=== PATIENT | male | born 1930 | race Caucasian/White ===

== ENCOUNTER 2017-03-07 16:14 | Inpatient (IN) | payer MEDICARE ==
[~2017-03-07] VITALS: Ht 188 cm; Wt 87.2 kg
--- NOTE | 2017-03-07 17:18 | EKG ---
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
[2017-03-07] MEDS ORDERED: IV RINGERS SOLUTION,LACTATED 1,000 ML IV SCH (18:00)
--- NOTE | 2017-03-07 18:01 | ED.ADGEN ---
Past History Past Medical History: Anxiety, Arthritis, Dementia, Other Past Surgical History: Other Adult General Chief Complaint Chief Complaint "....There is nothing wrong with me... just can't hear...." HPI HPI Patient is a 86 year old male who presents with hx. of episode of severe Influ. B illness and pneumonia in this past Dec. Pt. was admitted [facility] for 6 days. Since that time he never return to his prior base line mentation. Pt. has grown more confused, agitated, "sun downing" type presentation, hallucination s that sister in the room, paranoid, severe insomnia, aggressive , and frequent falling. Pt. behavior is beyond control even with constant family at his side. Pt. follows with Dr Le. Review of Systems Review of Systems Pt. has no complaints Constitutional: Denies fever or chills [] Eyes: Denies change in visual acuity, redness, or eye pain [] HENT: Denies nasal congestion or sore throat [] Respiratory: Denies cough or shortness of breath [] Cardiovascular: No additional information not addressed in HPI [] GI: Denies abdominal pain, nausea, vomiting, bloody stools or diarrhea [] : Denies dysuria or hematuria [] Musculoskeletal: Denies back pain or joint pain [] Integument: Denies rash or skin lesions [] Neurologic: Denies headache, focal weakness or sensory changes [] Endocrine: Denies polyuria or polydipsia [] Family History Family History Noncontributory Current Medications Current Medications See nursing for home medications Current Medications Medications (Trade) Dose Ordered Sig/Major Start Time Stop Time Status Last Admin Dose Admin Albuterol/ Ipratropium 3 ml 3 ml RTQID 03/07/17 21:00 03/07/17 21:28 3 ML Azithromycin (Zithromax) 500 mg 1X ONCE 03/07/17 21:00 03/07/17 21:01 DC 03/07/17 20:51 500 MG Azithromycin 500 mg 500 mg 1X ONCE 03/07/17 20:30 03/07/17 20:31 Cancel Ceftriaxone Sodium/Sodium Chloride (Rocephin/Iv Sodium Chloride 0.9% 50ml) 50 ml @ 100 mls/hr 1X ONCE 03/07/17 21:00 03/07/17 23:12 DC Ceftriaxone Sodium (Rocephin) 1 gm STK-MED ONCE 03/07/17 20:55 03/07/17 20:56 DC Diphenhydramine HCl (Benadryl) 50 mg 1X ONCE 03/07/17 18:15 03/07/17 18:16 DC 03/07/17 18:14 50 MG Haloperidol Lactate (Haldol) 5 mg 1X ONCE 03/07/17 18:15 03/07/17 23:16 DC Iohexol (Omnipaque 300 Mg/ml) 75 ml 1X ONCE 03/07/17 19:15 03/07/17 19:16 DC 03/07/17 19:08 75 ML Lactated Ringer's (Iv Lactated Ringers) 1,000 ml @ 1,000 mls/hr Q1H 03/07/17 18:00 03/07/17 23:12 DC 03/07/17 18:12 1,000 MLS/HR Lorazepam (Ativan) 2 mg 1X ONCE 03/07/17 18:15 03/07/17 18:16 DC 03/07/17 18:19 2 MG Sodium Chloride (Iv Sodium Chloride 0.9% 50ml) 50 ml @ As Directed STK-MED ONCE 03/07/17 20:55 03/07/17 23:12 DC Allergies Allergies Allergies Coded Allergies Type Severity Reaction Last Updated Verified aspirin Allergy Unknown 03/07/17 Yes hydrocodone Allergy Unknown 03/07/17 Yes Physical Exam Physical Exam Constitutional: Moderate emotional distress, non-toxic appearance. [] HENT: Normocephalic, atraumatic, bilateral external ears normal, oropharynx moist, no oral exudates, nose normal. [] Eyes: PERRLA, EOMI, conjunctiva normal, no discharge. [] Neck: Normal range of motion, no tenderness, supple, no stridor. [] Cardiovascular: 80 cardia Heart rate regular rhythm, PMI to the left, no murmur [] Lungs & Thorax: Bilateral breath sounds equal at apexes but increased crackles and rhonchi right lower base on auscultation [] Abdomen: Bowel sounds normal, soft, no tenderness, no masses, no pulsatile masses. [] Skin: Warm, dry, no erythema, no rash. Poor turgor Back: No tenderness, no CVA tenderness. Old surgical scar Extremities: No tenderness, no cyanosis, no clubbing, ROM intact, no edema. Arthritic changes. Wide gait Neurologic: Alert and oriented X 2, no gross motor function deficits, no gross sensory function deficits, no gross, focal deficits noted. [] Psychologic: Affect anxious, judgement appears to be impaired and lack insight, mood depressed, agitated. Difficult to redirect Current Patient Data Vital Signs Vital Signs Date Time Temp Pulse Resp B/P Pulse Ox O2 Delivery O2 Flow Rate FiO2 03/07/17 19:52 71 16 163/93 97 03/07/17 18:22 Room Air 03/07/17 16:40 98.3 Lab Results Laboratory Tests Test 03/07/17 16:45 03/07/17 16:50 White Blood Count 4.3x10^3/uL (4.0-11.0) Red Blood Count 3.63x10^6/uL (4.30-5.70) L Hemoglobin 11.8g/dL (13.0-17.5) L Hematocrit 34.4% (39.0-53.0) L Mean Corpuscular Volume 95fL (79-100) Mean Corpuscular Hemoglobin 32pg (25-35) Mean Corpuscular Hemoglobin Concent 34g/dL (31-37) Red Cell Distribution Width 13.8% (11.5-14.5) Platelet Count 204x10^3/uL (140-400) Neutrophils (%) (Auto) 65% (31-73) Lymphocytes (%) (Auto) 21% (24-48) L Monocytes (%) (Auto) 10% (0-9) H Eosinophils (%) (Auto) 3% (0-3) Basophils (%) (Auto) 1% (0-3) Neutrophils # (Auto) 2.8x10^3uL (1.8-7.7) Lymphocytes # (Auto) 0.9x10^3/uL (1.0-4.8) L Monocytes # (Auto) 0.4x10^3/uL (0.0-1.1) Eosinophils # (Auto) 0.1x10^3/uL (0.0-0.7) Basophils # (Auto) 0.0x10^3/uL (0.0-0.2) Erythrocyte Sedimentation Rate 13 (0-15) Sodium Level 141mmol/L (136-145) Potassium Level 3.7mmol/L (3.5-5.1) Chloride Level 104mmol/L (98-107) Carbon Dioxide Level 29mmol/L (21-32) Anion Gap 8 (6-14) Blood Urea Nitrogen 19mg/dL (8-26) Creatinine 0.9mg/dL (0.7-1.3) Estimated GFR (Cockcroft-Gault) 80.0 Glucose Level 99mg/dL (70-99) Calcium Level 8.7mg/dL (8.5-10.1) Magnesium Level 2.1mg/dL (1.8-2.4) Troponin I Quantitative < 0.017ng/mL (0-0.055) TH-Ifz-[id number]-Type Natriuretic Peptide 296pg/mL (0-449) Urine Collection Type Unknown Urine Color Yellow Urine Clarity Clear Urine pH 5.0 Urine Specific [place] 1.015 Urine Protein Neg (NEG-TRACE) Urine Glucose (UA) Negmg/dL (NEG) Urine Ketones (Stick) Negmg/dL (NEG) Urine Blood Neg (NEG) Urine Nitrite Neg (NEG) Urine Bilirubin Neg (NEG) Urine Urobilinogen Dipstick 0.2mg/dL (0.2 mg/dL) Urine Leukocyte Esterase Neg (NEG) Urine RBC Occ/HPF (0-2) Urine WBC Occ/HPF (0-4) Urine Squamous Epithelial Cells Occ/LPF Urine Bacteria 0/HPF (0-FEW) Urine Opiates Screen Pos (NEG) Urine Methadone Screen Neg (NEG) Urine Barbiturates Neg (NEG) Urine Phencyclidine Screen Neg (NEG) Urine Amphetamine/Methamphetamine Neg (NEG) Urine Benzodiazepines Screen Neg (NEG) Urine Cocaine Screen Neg (NEG) Urine Cannabinoids Screen Neg (NEG) Urine Ethyl Alcohol Neg (NEG) EKG EKG My interpretation of EKG shows a sinus rhythm at 63. There are some nonspecific anterior lateral changes. No findings acute STEMI. With contralateral changes [] Radiology/Procedures Radiology/Procedures My interpretation of chest x-ray shows cardiomegaly. Review is somewhat rotated and gives the appearance of right sided cardiac hypertrophic changes. Does have bilateral atelectasis.. Some increased cephalization. There are areas of scattered infiltrate []. There is an area which appears to be a spinal stimulator. My interpretation of CT of head shows no shift, mass, edema, bleed, or fracture. Does have marked white matter atrophy. There does appear to be a right mauro infarct. This area appears to be nonacute. Review formal report when available. CT of chest shows no pulmonary embolism. Does have a lingular node. Does have findings cardiomegaly and interstitial lung markings consistent with CHF. My interpretation patient may be findings of a right basilar pneumonitis or pneumonia. Course & Med Decision Making Course & Med Decision Making Pertinent Labs and Imaging studies reviewed. (See chart for details). Discussed presentation, testing and treatment plan with . He will consult reference medical issues on this patient. Patient has been cleared for admission to [facility]. [] Final Impression Final Impression 1. Mental status change 2. Hallucinations 3. Anemia 4. Degenerative joint changes 5. Lung nodule 6. CHF 7. Right lower lobe infiltrate -Pneumonia vs pneumonitis 8. Insomnia 9. History of hypertension 10. History of dementia 11. Agitation [] Problems: Dragon Disclaimer Dragon Disclaimer This electronic medical record was generated, in whole or in part, using a voice recognition dictation system. MAYA PITTMAN MD Mar 07, 2017 18:01
[2017-03-07 18:04] LABS: BASO % 1 % (0-3); EOS # 0.1 x10^3/uL (0.0-0.7); EOS % 3 % (0-3); HEMATOCRIT 34.4 % (39.0-53.0); HEMOGLOBIN 11.8 g/dL (13.0-17.5); LYMPH # 0.9 x10^3/uL (1.0-4.8); LYMPH % 21 % (24-48); MEAN CORPUSCULAR HEMOGLOBIN 32 pg (25-35); MEAN CORPUSCULAR HGB CONC 34 g/dL (31-37); MEAN CORPUSCULAR VOLUME 95 fL (79-100); MONO # 0.4 x10^3/uL (0.0-1.1); MONO % 10 % (0-9); NEUT # 2.8 x10^3uL (1.8-7.7); NEUT % 65 % (31-73); PLATELET COUNT 204 x10^3/uL (140-400); RED BLOOD COUNT 3.63 x10^6/uL (4.30-5.70); RED CELL DISTRIBUTION WIDTH 13.8 % (11.5-14.5); WHITE BLOOD COUNT 4.3 x10^3/uL (4.0-11.0)
[2017-03-07] MEDS ORDERED: LORazepam 2 MG/ML VIAL IV ONE (18:15)
[2017-03-07] MEDS ORDERED: HALOPERIDOL LACT 5 MG/ML VIAL. IVP ONE (18:15)
[2017-03-07] MEDS ORDERED: diphenhydrAMINE 50 MG/ML VIAL IVP ONE (18:15)
[2017-03-07 18:19] LABS: AMPHETAMINE/METHAMPHETAMINE NEG (NEG); BARBITURATES NEG (NEG); BENZODIAZEPINES NEG (NEG); CANNABINOIDS NEG (NEG); COCAINE NEG (NEG); METHADONE NEG (NEG); OPIATES POS (NEG); PHENCYCLIDINE NEG (NEG)
[2017-03-07 18:21] LABS: CALCIUM 8.7 mg/dL (8.5-10.1); CREATININE 0.9 mg/dL (0.7-1.3); MAGNESIUM 2.1 mg/dL (1.8-2.4); POTASSIUM 3.7 mmol/L (3.5-5.1)
[2017-03-07 18:31] LABS: BILIRUBIN,URINE NEG (NEG); CLARITY,URINE CLEAR; COLOR,URINE YELLOW; GLUCOSE,URINE NEG (NEG); NITRITE,URINE NEG (NEG); UROBILINOGEN,URINE 0.2 mg/dL (0.2 mg/dL)
[2017-03-07 18:32] LABS: BACTERIA,URINE 0 /HPF (0-FEW); RBC,URINE OCC /HPF (0-2); SQUAMOUS EPITHELIAL CELL,UR OCC /LPF; WBC,URINE OCC /HPF (0-4)
--- NOTE | 2017-03-07 19:08 | RAD ---
Examination: CT head without contrast History : Altered mental status, confusion, agitation COMPARISON None available. TECHNIQUE Axial images the head without contrast. Findings: There is no evidence of midline shift. Moderate bilateral periventricular white matter hypodensities likely chronic small vessel ischemic disease. Moderate prominent appearing bilateral periventricular white matter hypodensities likely chronic small vessel ischemic disease. There is no acute intracranial bleed or extra-axial fluid collection identified. Small old lacunar infarct identified in the right basal ganglia. The visualized right maxillary sinus demonstrate small mucous retention cyst or polyp. The visualized mastoid air cells are clear. Impression: No acute intracranial findings. Electronically signed by: Miguel Flower (Mar 07, 2017 19:06:52)
[2017-03-07] MEDS ORDERED: IOHEXOL 300 MG/ML 75 ML VIAL. IV ONE (19:15)
[2017-03-07 19:18] LABS: SEDIMENTATION RATE 13 (0-15)
--- NOTE | 2017-03-07 20:03 | RAD ---
Examination: CT chest with IV contrast. HISTORY History of chest pain, weakness. COMPARISON None available. TECHNIQUE Axial CT angiographic images AICAs were performed with IV contrast. Coronal and sagittal 3D MIPS reformats were performed. Exposure: One or more of the following dose reduction technique were utilized for this examination: 1. Automated exposure control. 2.Adjustment of MA and /or KV according to patient size. 3. Use of iterative reconstruction technique. Findings: The central airways are patent. Mild cardiomegaly identified. Coronary artery calcifications identified. There is no evidence of filling defect identified in the main pulmonary arterial trunk and right and left main pulmonary arteries and the visualized lobar, segmental branches. Mild patchy bibasilar lung airspace opacity likely atelectasis or infiltrates. 4 millimeter nodule identified in the left lingula. The visualized liver demonstrates subcentimeter hypodensity in the left lobe the liver Moderate degenerative changes thoracic spine. Spinal stimulator leads identified in the mid thoracic vertebral level. 1.1 centimeters cyst structure identified in the right kidney probably a cyst or cystic lesion. 1 centimeter hyperdensity probably hyperdense cyst identified in the left kidney. IMPRESSION 1. No evidence of pulmonary embolism. 2. Patchy bibasilar lung airspace opacities likely atelectasis or infiltrates. 4 millimeter nodule identified in the left lingula of the lung. 3. Mild cardiomegaly with mild prominent appearing bilateral interstitial lung markings likely mild congestive changes. 4. 1.1 centimeters cyst structure identified in the right kidney probably a cyst or cystic lesion. 1 centimeter hyperdensity identified in the left kidney likely a hyperdense cyst. Followup nonemergent ultrasound is recommended. Electronically signed by: Miguel Flower (Mar 07, 2017 20:02:13)
[2017-03-07] MEDS ORDERED: AZITHROMYCIN 250 MG TABLET. PO ONE ×2 (20:30→21:00)
[2017-03-07] MEDS ORDERED: cefTRIAXone SODIUM 1 GM VIAL IV ONE (20:55)
[2017-03-07] MEDS ORDERED: IV NORMAL SALINE 50ML 50 ML ONE (20:55)
[2017-03-07] MEDS: cefTRIAXone IM 1 GM VIAL IM SCH (20:58)
[2017-03-07] MEDS: IPRATRPIUM/ALBUTEROL 0.5/2.5MG 3 ML NEBU. NEB SCH (21:28)
--- NOTE | 2017-03-07 21:30 | NUR ---
Admission Note: Pt arrived via stretcher and accompanied by [employer] and EMS staff. Patient without signs and symptoms of distress. Dx: Dementia with Behavioral Disturbances. Vital signs obtained, WNL, noted and documented within the EMR. Assessment as follows: Patient drowsy, PERRLA, patient would awaken intermittently to verbal and tactile stimuli. ORUTSARARMIUT. Mucous membranes moist. S1 S2 regular, LCTA, but diminished to RLL. SPO2 97% on RA following breathing treatment. HOB up to comfort. Resp. shallow, but unlabored. 1+ pedal pulses; 2+ non-pitting edema to bilat LE; blanchable redness and warmth to lower legs; no weeping or s/s DVT, but cellulitis cannot be ruled out. Partial thickness, clean abrasions noted to right 1st and 2nd toe. Bandaid applied to protect and wound care consult per protocol. Skin otherwise intact; fragile. Bowel sounds active all quads and abdomen soft, round, non-tender. No s/s of significant pain as patient remained calm, cooperative, and relaxed during assessment. Patient oriented to self only, disoriented, confused, but non-combative. Patient stated, "Where am I? What did I do? Don't let them come get me and hurt me! Please help me" Patient reassured that he did nothing wrong and attempted redirection toward person, place, time, and situation. Family at bedside to say terell to patient and further redirect patient. Patient receptive and stated, "Ok. Don't you think you should be headed home now?" Patient then went back to sleep. Reinforced [facility] rules and instructions with family prior to their departure (e.g. visitation, phone calls, etc.). Family verbalized understanding. Will follow.
[2017-03-07 21:58] VITALS: BP 179/88
--- NOTE | 2017-03-07 23:41 | PDOC ---
Exam Earle Demential Exam: Earle Note: Please also refer to the separate dictated note~for this date of service dictated separately.~Patient seen individually. Discussed the patient with Nursing staff reviewed the chart.~Reviewed interim history and current functioning. Reviewed vital signs,~Labs/ Radiology~and current medications noted below. Continue current treatment with the changes noted in the dictated addendum note Assessment: Vital Signs: Vital Signs Date Time Temp Pulse Resp B/P Pulse Ox O2 Delivery O2 Flow Rate FiO2 03/07/17 21:58 96.9 61 18 179/88 97 Room Air Labs: Laboratory Tests Test 03/07/17 16:45 03/07/17 16:50 White Blood Count 4.3x10^3/uL (4.0-11.0) Red Blood Count 3.63x10^6/uL (4.30-5.70) L Hemoglobin 11.8g/dL (13.0-17.5) L Hematocrit 34.4% (39.0-53.0) L Mean Corpuscular Volume 95fL (79-100) Mean Corpuscular Hemoglobin 32pg (25-35) Mean Corpuscular Hemoglobin Concent 34g/dL (31-37) Red Cell Distribution Width 13.8% (11.5-14.5) Platelet Count 204x10^3/uL (140-400) Neutrophils (%) (Auto) 65% (31-73) Lymphocytes (%) (Auto) 21% (24-48) L Monocytes (%) (Auto) 10% (0-9) H Eosinophils (%) (Auto) 3% (0-3) Basophils (%) (Auto) 1% (0-3) Neutrophils # (Auto) 2.8x10^3uL (1.8-7.7) Lymphocytes # (Auto) 0.9x10^3/uL (1.0-4.8) L Monocytes # (Auto) 0.4x10^3/uL (0.0-1.1) Eosinophils # (Auto) 0.1x10^3/uL (0.0-0.7) Basophils # (Auto) 0.0x10^3/uL (0.0-0.2) Erythrocyte Sedimentation Rate 13 (0-15) Sodium Level 141mmol/L (136-145) Potassium Level 3.7mmol/L (3.5-5.1) Chloride Level 104mmol/L (98-107) Carbon Dioxide Level 29mmol/L (21-32) Anion Gap 8 (6-14) Blood Urea Nitrogen 19mg/dL (8-26) Creatinine 0.9mg/dL (0.7-1.3) Estimated GFR (Cockcroft-Gault) 80.0 Glucose Level 99mg/dL (70-99) Calcium Level 8.7mg/dL (8.5-10.1) Magnesium Level 2.1mg/dL (1.8-2.4) Troponin I Quantitative < 0.017ng/mL (0-0.055) MF-Owr-[id number]-Type Natriuretic Peptide 296pg/mL (0-449) Urine Collection Type Unknown Urine Color Yellow Urine Clarity Clear Urine pH 5.0 Urine Specific [place] 1.015 Urine Protein Neg (NEG-TRACE) Urine Glucose (UA) Negmg/dL (NEG) Urine Ketones (Stick) Negmg/dL (NEG) Urine Blood Neg (NEG) Urine Nitrite Neg (NEG) Urine Bilirubin Neg (NEG) Urine Urobilinogen Dipstick 0.2mg/dL (0.2 mg/dL) Urine Leukocyte Esterase Neg (NEG) Urine RBC Occ/HPF (0-2) Urine WBC Occ/HPF (0-4) Urine Squamous Epithelial Cells Occ/LPF Urine Bacteria 0/HPF (0-FEW) Urine Opiates Screen Pos (NEG) Urine Methadone Screen Neg (NEG) Urine Barbiturates Neg (NEG) Urine Phencyclidine Screen Neg (NEG) Urine Amphetamine/Methamphetamine Neg (NEG) Urine Benzodiazepines Screen Neg (NEG) Urine Cocaine Screen Neg (NEG) Urine Cannabinoids Screen Neg (NEG) Urine Ethyl Alcohol Neg (NEG) Current Medications: Meds: Current Medications Lactated Ringer's (Iv Lactated Ringers) 1,000 ml @ 1,000 mls/hr Q1H IV Last administered on 03/07/17 18:12; Start 03/07/17 at 18:00; Stop 03/07/17 at 23:12 ; Status DC Diphenhydramine HCl (Benadryl) 50 mg 1X ONCE IVP Last administered on 18:14; Start 03/07/17 at 18:15; Stop 03/07/17 at 18:16; Status DC Lorazepam (Ativan) 2 mg 1X ONCE IV Last administered on 03/07/17 18:19; Start 03/07/17 at 18:15; Stop 03/07/17 at 18:16; Status DC Haloperidol Lactate (Haldol) 5 mg 1X ONCE IVP ; Start 03/07/17 at 18:15; Stop 03/07/17 at 23:16; Status DC Iohexol 75 ml 75 ml 1X ONCE IV Last administered on 03/07/17 19:08; Start at 19:15; Stop 03/07/17 at 19:16; Status DC Ceftriaxone Sodium/Sodium Chloride (Rocephin/Iv Sodium Chloride 0.9% 50ml) 50 ml @ 100 mls/hr 1X ONCE IV ; Start 03/07/17 at 20:30; Stop 03/07/17 at 20:59; Status Cancel Azithromycin 500 mg 500 mg 1X ONCE PO ; Start 03/07/17 at 20:30; Stop 03/07/17 at 20:31; Status Cancel Ceftriaxone Sodium/Sodium Chloride (Rocephin/Iv Sodium Chloride 0.9% 50ml) 50 ml @ 100 mls/hr 1X ONCE IV ; Start 03/07/17 at 21:00; Stop 03/07/17 at 23:12; Status DC Azithromycin (Zithromax) 500 mg 1X ONCE PO Last administered on 03/07/17 20: 51; Start 03/07/17 at 21:00; Stop 03/07/17 at 21:01; Status DC Azithromycin (Zithromax) 250 mg DAILY06 PO ; Start 03/08/17 at 06:00 Ceftriaxone Sodium (Rocephin Im) 1 gm DAILY IM Last administered on 03/07/17 20:58; Start 03/08/17 at 09:00 Albuterol/ Ipratropium 3 ml 3 ml RTQID NEB Last administered on 03/07/17 21:28 ; Start 03/07/17 at 21:00 Sodium Chloride (Iv Sodium Chloride 0.9% 50ml) 50 ml @ As Directed STK-MED ONCE .ROUTE ; Start 03/07/17 at 20:55; Stop 03/07/17 at 23:12; Status DC Ceftriaxone Sodium (Rocephin) 1 gm STK-MED ONCE IV ; Start 03/07/17 at 20:55; Stop 03/07/17 at 20:56; Status DC RASHMI NEGRON MD Mar 07, 2017 23:41
[2017-03-08] MEDS ORDERED: ACET-704 PO
[2017-03-08] MEDS ORDERED: BIOF1TAB7 PO
[2017-03-08] MEDS ORDERED: HYDR25TA9 PO
[2017-03-08] MEDS ORDERED: QUET25TA PO
[2017-03-08] MEDS ORDERED: ESCI10TA PO
[2017-03-08] MEDS ORDERED: POTA20TA82 PO
[2017-03-08] MEDS ORDERED: RISP0.2519 PO
[2017-03-08] MEDS ORDERED: POLY17PO3 PO
[2017-03-08] MEDS ORDERED: TAMS0.4C2 PO
[2017-03-08] MEDS ORDERED: DONE5TAB7 PO
[2017-03-08] MEDS ORDERED: VIT1CAPS12 PO
[2017-03-08] MEDS ORDERED: CYAN50008 PO (00:01)
[2017-03-08] MEDS ORDERED: CHOL20002 PO (00:01)
[2017-03-08] MEDS ORDERED: LORA10TA68 PO (00:01)
[2017-03-08] MEDS ORDERED: GLUC1CAP3 PO (00:01)
--- NOTE | 2017-03-08 03:00 | NUR ---
Behavior Intervention Response and Plan: BIRP Note: Behavior: Assumed Care of patient, patient located in Patient Room at shift change. Patient exhibited the following behavior Restless, Cooperative, Delusions, Insomnia, Fearful. Brief assessment on rounds of vital signs, medication needs, lab studies, and pain. Treatment plan problems 1-2. Intervention: Patient assessed and the following interventions initiated safety checks 15 Minute Checks Cognitive Assessment , Oral Hydration , ADL's, linen change, and hussein care, redirection. Response: After interactions and interventions patient responded in the following manner, Calm , confused ,Disorganized. Continue to assess behaviors and condition will continue to monitor throughout the shift as needed. Plan: Continue to monitor Master Treatment Plan for patient's progress toward short term goals of Decreased Anxiety, Decreased Agitation, Medication Compliance, Improved Mood long-term goals to return to previous living setting vs placement. Continue to assess patient for changes in above assessment. Monitor for medication needs, pain, and safety concerns. Hourly rounding performed to ensure safe environment.
[2017-03-08 06:10] VITALS: BP 171/80
[2017-03-08] MEDS: AZITHROMYCIN 250 MG TABLET. PO SCH (06:13)
[2017-03-08] MEDS: IPRATRPIUM/ALBUTEROL 0.5/2.5MG 3 ML NEBU. NEB SCH ×4 (06:52→20:00)
[2017-03-08] MEDS ORDERED: POTASSIUM CHLORIDE 10 MEQ TABLET.ER. PO SCH (08:00)
--- NOTE | 2017-03-08 08:28 | RAD ---
Exam: AP portable chest. History: Recent falls, altered mental status, shortness of air. Comparison: None. Findings: Cardiac silhouette appears within normal limits for size. Aortic atherosclerosis is seen. Spinal stimulator is present. Patchy bilateral parenchymal densities are seen. No pneumothorax or pleural effusion is identified. Gas under the diaphragm is favored to be localized bowel. Impression: 1. Patchy bilateral parenchymal densities. Findings could represent atelectasis versus developing airspace disease
[2017-03-08] MEDS ORDERED: ACETAMINOPHEN/CODEINE 300/30MG TABLET PO PRN (08:45)
[2017-03-08] MEDS ORDERED: CYANOCOBALAMIN (VITAMIN B-12) 1,000 MCG TABLET. PO SCH (09:00)
[2017-03-08] MEDS ORDERED: [UNRECOGNIZED DRUG - OTHER] PO SCH (09:00)
[2017-03-08] MEDS ORDERED: CHOLECALCIFEROL (VITAMIN D3) 1,000 UNIT TABLET PO SCH (09:00)
[2017-03-08] MEDS ORDERED: CETIRIZINE HCL 10 MG TABLET PO SCH (09:00)
--- NOTE | 2017-03-08 10:00 | NUR ---
THERAPEUTIC RECREATION GROUP NOTE TITLE :Butterflies and Wine Sales Representative Art ACTIVITY : Arts and Crafts GOAL : Increase socialization, fine motor skills, creativity DURATION : 30 minutes RESPONSE : No participation. Pt. was wandering
--- NOTE | 2017-03-08 10:13 | NUR ---
Case Management Note Left a message for Marla at the [place] [phone] #[id number] regarding [facility] facilities for discharge planning. Family was given a list of facilities that are Service connected. We requested the same list.
[2017-03-08] MEDS: POLYETHYLENE GLYCOL 3350 17 GM PACKET. PO SCH (10:22)
[2017-03-08] MEDS: risperiDONE 0.25 MG TABLET. PO SCH ×2 (10:22→21:13)
[2017-03-08] MEDS: ESCITALOPRAM 10 MG TABLET. PO SCH (10:22)
[2017-03-08] MEDS: hydroCHLOROthiazide 25 MG TABLET PO SCH (10:22)
[2017-03-08] MEDS: GLUCOSAMINE/CHOND 500/400MG CAPSULE PO SCH ×2 (10:22→21:08)
[2017-03-08] MEDS: MULTIVITAMIN PRESERVISION CAPSULE. PO SCH ×2 (10:23→21:09)
[2017-03-08 10:25] LABS: BASO % 0 % (0-3); EOS % 0 % (0-3); HEMATOCRIT 39.4 % (39.0-53.0); HEMOGLOBIN 13.6 g/dL (13.0-17.5); LYMPH # 0.7 x10^3/uL (1.0-4.8); LYMPH % 10 % (24-48); MEAN CORPUSCULAR HEMOGLOBIN 32 pg (25-35); MEAN CORPUSCULAR HGB CONC 34 g/dL (31-37); MEAN CORPUSCULAR VOLUME 94 fL (79-100); MONO # 0.5 x10^3/uL (0.0-1.1); MONO % 7 % (0-9); NEUT % 83 % (31-73); PLATELET COUNT 253 x10^3/uL (140-400); RED BLOOD COUNT 4.18 x10^6/uL (4.30-5.70); RED CELL DISTRIBUTION WIDTH 14.2 % (11.5-14.5); WHITE BLOOD COUNT 7.3 x10^3/uL (4.0-11.0)
[2017-03-08 10:38] LABS: ALBUMIN/GLOBULIN RATIO 1.1 (1.0-1.7); CALCIUM 9.5 mg/dL (8.5-10.1); GFR 70.8; POTASSIUM 3.3 mmol/L (3.5-5.1); TOTAL BILIRUBIN 0.8 mg/dL (0.2-1.0); TOTAL PROTEIN 7.6 g/dL (6.4-8.2)
--- NOTE | 2017-03-08 11:15 | NUR ---
THERAPEUTIC RECREATION GROUP NOTE TITLE :Movement to Music: Flexibility ACTIVITY : Movement/ Exercise GOAL : Increase morale, attention, flexibility. Decrease stress/anxiety. DURATION : 40 Minutes RESPONSE : No participation.
--- NOTE | 2017-03-08 11:21 | NUR ---
Behavior Intervention Response and Plan: BIRP Note: Behavior: Assumed Care of patient, patient located in Hallway at shift change. Patient exhibited the following behavior Wandering, Exit Seeking, Disorganized. Brief assessment on rounds of vital signs, medication needs, lab studies, and pain. Treatment plan problems . Intervention: Patient assessed and the following interventions initiated safety checks 15 Minute Checks Cognitive Assessment , Head to toe Assessment , Medications. Response: After interactions and interventions patient responded in the following manner, Wandering , Disorganized ,Cooperative. Continue to assess behaviors and condition will continue to monitor throughout the shift as needed. Plan: Continue to monitor Master Treatment Plan for patient's progress toward short term goals of Decreased Anxiety, Decreased Agitation, nursing home goals to return to previous living setting vs placement. Continue to assess patient for changes in above assessment. Monitor for medication needs, pain, and safety concerns. Hourly rounding performed to ensure safe environment.
--- NOTE | 2017-03-08 11:29 | NUR ---
Psychosocial Assessment completed w/Pt's dtr, Romeo. Pt. was born and raised in [place] w/3 sisters and 1 brother. Pt. grew up during the WWII, witnessing his brother being killed in front of his family. PT. 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 Pt. 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 Pt. his current named Maria for over 62 years. Pt. has 4 children named Robby, Romeo, Marta, and Sony. No family history of alcohol or substance abuse, or Dementia. According to Romeo, Pt. was admitted into the hospital in December 2016 for Flu and has shown a drastic decline since az. Family is not convinced PT. has Dementia as they believe due to Pt's extreme lack of sleep, his behaviors are directly related to sleep deprivation. Pt. will likely require placement at [facility]. [facility] SW will work w[facility] to determine personal driver and process for [facility] placement.
--- NOTE | 2017-03-08 14:00 | NUR ---
THERAPEUTIC RECREATION GROUP NOTE TITLE :Sing along with Selene ACTIVITY : Music GOAL : Increase socialization, elevate mood, stimulate memory DURATION : 60 Minutes RESPONSE : Minimal participation. Pt. occasionally held uriel sheet but did not sing. Pt. was focused on his shoes and wandered throughout the session.
[2017-03-08 16:13] VITALS: BP 124/67
--- NOTE | 2017-03-08 17:05 | NUR ---
wound care patient seen per wound care consult. patient has bilateral lower leg edema, with no wounds. wound care is signing off at this time, please re-consult if the integumentary assessment changes.
[2017-03-08 19:09] LABS: THYROXINE 6.7 ug/dL (4.5-12.0)
[2017-03-08] MEDS ORDERED: QUEtiapine 25 MG TABLET. PO SCH (21:00)
[2017-03-08] MEDS: MELATONIN 3 MG TABLET PO SCH (21:08)
[2017-03-08] MEDS: MIRTAZAPINE 7.5 MG TABLET. PO SCH (21:08)
[2017-03-08] MEDS: TAMSULOSIN 0.4 MG CAP.ER.24H. PO SCH (21:09)
[2017-03-08] MEDS: DONEPEZIL HCL 5 MG TABLET. PO SCH (21:09)
--- NOTE | 2017-03-08 21:39 | PDOC ---
Exam Earle Demential Exam: Earle Note: Please also refer to the separate dictated note~for this date of service dictated separately.~Patient seen individually. Discussed the patient with Nursing staff reviewed the chart.~Reviewed interim history and current functioning. Reviewed vital signs,~Labs/ Radiology~and current medications noted below. Continue current treatment with the changes noted in the dictated addendum note Assessment: Vital Signs: Vital Signs Date Time Temp Pulse Resp B/P Pulse Ox O2 Delivery O2 Flow Rate FiO2 03/08/17 21:16 95 Room Air 03/08/17 16:13 97.8 80 20 124/67 I&O Intake and Output 03/08/17 07:00 # Voids 1 Labs: Laboratory Tests Test 03/08/17 09:52 White Blood Count 7.3x10^3/uL (4.0-11.0) # Red Blood Count 4.18x10^6/uL (4.30-5.70) L Hemoglobin 13.6g/dL (13.0-17.5) Hematocrit 39.4% (39.0-53.0) Mean Corpuscular Volume 94fL (79-100) Mean Corpuscular Hemoglobin 32pg (25-35) Mean Corpuscular Hemoglobin Concent 34g/dL (31-37) Red Cell Distribution Width 14.2% (11.5-14.5) Platelet Count 253x10^3/uL (140-400) Neutrophils (%) (Auto) 83% (31-73) H Lymphocytes (%) (Auto) 10% (24-48) L Monocytes (%) (Auto) 7% (0-9) Eosinophils (%) (Auto) 0% (0-3) Basophils (%) (Auto) 0% (0-3) Neutrophils # (Auto) 6.0x10^3uL (1.8-7.7) Lymphocytes # (Auto) 0.7x10^3/uL (1.0-4.8) L Monocytes # (Auto) 0.5x10^3/uL (0.0-1.1) Eosinophils # (Auto) 0.0x10^3/uL (0.0-0.7) Basophils # (Auto) 0.0x10^3/uL (0.0-0.2) Sodium Level 143mmol/L (136-145) Potassium Level 3.3mmol/L (3.5-5.1) L Chloride Level 103mmol/L (98-107) Carbon Dioxide Level 30mmol/L (21-32) Anion Gap 10 (6-14) Blood Urea Nitrogen 13mg/dL (8-26) Creatinine 1.0mg/dL (0.7-1.3) Estimated GFR (Cockcroft-Gault) 70.8 BUN/Creatinine Ratio 13 (6-20) Glucose Level 121mg/dL (70-99) H Calcium Level 9.5mg/dL (8.5-10.1) Iron Level 49ug/dL (65-175) L Total Iron Binding Capacity 264ug/dL (250-450) Iron Saturation 19% (15-34) Total Bilirubin 0.8mg/dL (0.2-1.0) Aspartate Amino Transferase (AST) 33U/L (15-37) Alanine Aminotransferase (ALT) 30U/L (16-63) Alkaline Phosphatase 59U/L (46-116) Total Protein 7.6g/dL (6.4-8.2) Albumin 4.0g/dL (3.4-5.0) Albumin/Globulin Ratio 1.1 (1.0-1.7) Triglycerides Level 82mg/dL (0-150) Cholesterol Level 192mg/dL (0-200) LDL Cholesterol, Calculated 92mg/dL (0-100) VLDL Cholesterol, Calculated 16mg/dL (0-40) Non-HDL Cholesterol Calculated 108mg/dL (0-129) HDL Cholesterol 84mg/dL (40-60) H Cholesterol/HDL Ratio 2.0 Vitamin B12 Level 721pg/mL (247-911) 25-Hydroxy Vitamin D Total Pending Thyroxine (T4) 6.7ug/dL (4.5-12.0) Total Triiodothyronine (TT3) 100ng/dL (71-180) Current Medications: Meds: Current Medications Lactated Ringer's (Iv Lactated Ringers) 1,000 ml @ 1,000 mls/hr Q1H IV Last administered on 03/07/17t 18:12; Start 03/07/17 at 18:00; Stop 03/07/17 at 23:12 ; Status DC Diphenhydramine HCl (Benadryl) 50 mg 1X ONCE IVP Last administered on 18:14; Start 03/07/17 at 18:15; Stop 03/07/17 at 18:16; Status DC Lorazepam (Ativan) 2 mg 1X ONCE IV Last administered on 03/07/17 18:19; Start 03/07/17 at 18:15; Stop 03/07/17 at 18:16; Status DC Haloperidol Lactate (Haldol) 5 mg 1X ONCE IVP ; Start 03/07/17 at 18:15; Stop 03/07/17 at 23:16; Status DC Iohexol 75 ml 75 ml 1X ONCE IV Last administered on 03/07/17 19:08; Start at 19:15; Stop 03/07/17 at 19:16; Status DC Ceftriaxone Sodium/Sodium Chloride (Rocephin/Iv Sodium Chloride 0.9% 50ml) 50 ml @ 100 mls/hr 1X ONCE IV ; Start 03/07/17 at 20:30; Stop 03/07/17 at 20:59; Status Cancel Azithromycin 500 mg 500 mg 1X ONCE PO ; Start 03/07/17 at 20:30; Stop 03/07/17 at 20:31; Status Cancel Ceftriaxone Sodium/Sodium Chloride (Rocephin/Iv Sodium Chloride 0.9% 50ml) 50 ml @ 100 mls/hr 1X ONCE IV ; Start 03/07/17 at 21:00; Stop 03/07/17 at 23:12; Status DC Azithromycin (Zithromax) 500 mg 1X ONCE PO Last administered on 03/07/17 20: 51; Start 03/07/17 at 21:00; Stop 03/07/17 at 21:01; Status DC Azithromycin (Zithromax) 250 mg DAILY06 PO Last administered on 03/08/17 06:13 ; Start 03/08/17 at 06:00 Ceftriaxone Sodium (Rocephin Im) 1 gm DAILY IM Last administered on 03/07/17 20:58; Start 03/08/17 at 09:00 Albuterol/ Ipratropium 3 ml 3 ml RTQID NEB Last administered on 03/08/17 20:00 ; Start 03/07/17 at 21:00 Sodium Chloride (Iv Sodium Chloride 0.9% 50ml) 50 ml @ As Directed STK-MED ONCE .ROUTE ; Start 03/07/17 at 20:55; Stop 03/07/17 at 23:12; Status DC Ceftriaxone Sodium (Rocephin) 1 gm STK-MED ONCE IV ; Start 03/07/17 at 20:55; Stop 03/07/17 at 20:56; Status DC Donepezil HCl (Aricept) 5 mg QHS PO Last administered on 03/08/17 21:09; Start 03/08/17 at 21:00 Escitalopram Oxalate (Lexapro) 10 mg DAILY PO Last administered on 03/08/17 10 :22; Start 03/08/17 at 09:00 Quetiapine Fumarate (SEROquel) 25 mg QHS PO Last administered on 03/08/17 21: 09; Start 03/08/17 at 21:00 Risperidone (Risperdal) 0.25 mg BID PO Last administered on 03/08/17 21:13; Start 03/08/17 at 09:00 Non-Formulary Medication 1 each BID PO ; Start 03/08/17 at 09:00; Stop 03/08/17 at 09:00; Status DC Vitamin D (Vitamin D3) 2,000 unit DAILY PO ; Start 03/08/17 at 09:00; Stop 03/08 at 09:00; Status DC Cyanocobalamin (Vitamin B-12) 5,000 mcg DAILY PO ; Start 03/08/17 at 09:00; Stop 03/08/17 at 09:00; Status DC Cetirizine HCl (Zyrtec) 10 mg DAILY PO ; Start 03/08/17 at 09:00; Stop 03/08/17 at 09:00; Status DC Potassium Chloride (Klor-Con) 30 meq BIDWMEALS PO ; Start 03/08/17 at 08:00; Stop 03/08/17 at 08:00; Status DC Acetaminophen/ Codeine Phosphate (Tylenol #3) 1 tab PRN Q6HRS PRN PO PAIN; Start 03/08/17 at 08:45 Glucosamine/ Chondroitin (Glucosamine-Chondroitin 500/400mg) 1 cap BID PO Last administered on 03/08/17 21:08; Start 03/08/17 at 09:00 Hydrochlorothiazide (Hydrodiuril) 25 mg DAILY PO Last administered on 10:22; Start 03/08/17 at 09:00 Polyethylene Glycol (miraLAX) 17 gm DAILY PO Last administered on 03/08/17 10: 22; Start 03/08/17 at 09:00 Tamsulosin HCl (Flomax) 0.4 mg QHS PO Last administered on 03/08/17 21:09; Start 03/08/17 at 21:00 Multivitamins/ Minerals (Preservision) 1 cap BID PO Last administered on 21:09; Start 03/08/17 at 09:00 Olanzapine (Zyprexa Zydis) 2.5 mg PRN Q2HR PRN PO ANXIETY / AGITATION Last administered on 03/08/17 12:37; Start 03/08/17 at 12:30 Mirtazapine (Remeron) 7.5 mg QHS PO Last administered on 03/08/17 21:08; Start 03/08/17 at 21:00 Melatonin 3 mg QHS PO Last administered on 03/08/17 21:08; Start 03/08/17 at 21:00 Active Scripts Active Reported Claritin (Loratadine) 10 Mg Tablet 10 Mg PO DAILY Vitamin B12 (Cyanocobalamin (Vitamin B-12)) 5,000 Mcg Tab.rapdis 5,000 Mcg PO DAILY Vitamin D-3 (Cholecalciferol (Vitamin D3)) 2,000 Unit Tablet 2,000 Unit PO DAILY Glucosamine-Chondroitin Cap (Glucosamine/Chondroitin Sulf A) 1 Each Capsule 1, 500 Mg PO BID Lipo-Flavonoid Plus Caplet (Bioflav,Lemon/Vit Bcomp&C) 1 Each Tablet 1 Each PO BID Preservision Areds Softgel (Vit A/Vit C/Vit E/Zinc/Copper) 1 Each Capsule 1 Each PO BID Polyethylene Glycol 3350 17 Gm Powd.pack 17 Gm PO DAILY Tylenol With Codeine #3 Tablet (Acetaminophen With Codeine) 1 Each Tablet 1 Tab PO PRN Q6HRS PRN Quetiapine Fumarate 25 Mg Tablet 25 Mg PO QHS Donepezil Hcl 5 Mg Tablet 5 Mg PO QHS Risperdal (Risperidone) 0.25 Mg Tablet 0.25 Mg PO BID Escitalopram Oxalate 10 Mg Tablet 10 Mg PO DAILY Tamsulosin Hcl 0.4 Mg Cap.er.24h 0.4 Mg PO QHS Potassium Chloride 20 Meq Tablet.er 30 Meq PO BID Hydrochlorothiazide Tablet (Hydrochlorothiazide) 25 Mg Tablet 25 Mg PO DAILY Diagnosis: Problems: (1) Anxiety disorder (2) Dementia in Alzheimer's disease with delusions (3) Dementia in Alzheimer's disease with depression (4) Dementia, vascular, with delusions (5) Dementia, vascular, with depression (6) Impulse control disorder RASHMI NEGRON MD Mar 08, 2017 21:39
--- NOTE | 2017-03-08 23:57 | NUR ---
Nursing Note: Patient yelling out from his bed. Patient asking for help and asking "why is this happening to me?"; patient also calling out for family members and in Ethiopian. Unable to console or to redirect patient and pt unable to sleep. PRN given. Will continue to monitor.
--- NOTE | 2017-03-09 01:26 | NUR ---
Behavior Intervention Response and Plan: BIRP Note: Behavior: Assumed Care of patient, patient located in Hallway at shift change. Patient exhibited the following behavior Calm, Disorganized, Cooperative. Brief assessment on rounds of vital signs, medication needs, lab studies, and pain. Treatment plan problems Dementia with Bd and Fall Risk. Intervention: Patient assessed and the following interventions initiated safety checks 15 Minute Checks Head to toe Assessment , Medications , Cognitive Assessment. Response: After interactions and interventions patient responded in the following manner, Disorganized , Anxious ,Delusions. Continue to assess behaviors and condition will continue to monitor throughout the shift as needed. Plan: Continue to monitor Master Treatment Plan for patient's progress toward short term goals of Decreased Anxiety, Decreased Agitation, rn long term care goals to return to previous living setting vs placement. Continue to assess patient for changes in above assessment. Monitor for medication needs, pain, and safety concerns. Hourly rounding performed to ensure safe environment.
[2017-03-09 02:07] LABS: HEMOGLOBIN A1C 4.5 % (4.8-5.6)
[2017-03-09] MEDS: AZITHROMYCIN 250 MG TABLET. PO SCH (05:34)
[2017-03-09] MEDS: IPRATRPIUM/ALBUTEROL 0.5/2.5MG 3 ML NEBU. NEB SCH ×4 (05:45→20:00)
[2017-03-09 06:27] VITALS: BP 169/97
[2017-03-09 07:49] LABS: CALCIUM 9.5 mg/dL (8.5-10.1); CREATININE 0.6 mg/dL (0.7-1.3); GFR 127.7; POTASSIUM 3.6 mmol/L (3.5-5.1)
[2017-03-09] MEDS: GLUCOSAMINE/CHOND 500/400MG CAPSULE PO SCH ×2 (07:59→19:09)
[2017-03-09] MEDS: POLYETHYLENE GLYCOL 3350 17 GM PACKET. PO SCH (07:59)
[2017-03-09] MEDS: cefTRIAXone IM 1 GM VIAL IM SCH (07:59)
[2017-03-09] MEDS: hydroCHLOROthiazide 25 MG TABLET PO SCH (08:00)
[2017-03-09] MEDS: ESCITALOPRAM 10 MG TABLET. PO SCH (08:00)
[2017-03-09] MEDS: risperiDONE 0.25 MG TABLET. PO SCH ×2 (08:00→19:09)
[2017-03-09] MEDS: MULTIVITAMIN PRESERVISION CAPSULE. PO SCH ×2 (08:01→19:11)
--- NOTE | 2017-03-09 14:12 | NUR ---
Behavior Intervention Response and Plan: BIRP Note: Behavior: Assumed Care of patient, patient located in Patient Room at shift change. Patient exhibited the following behavior Disorganized, Wandering, Sleeping. Brief assessment on rounds of vital signs, medication needs, lab studies, and pain. Treatment plan problems . Intervention: Patient assessed and the following interventions initiated safety checks 15 Minute Checks Medications , Head to toe Assessment , Nutrition. Response: After interactions and interventions patient responded in the following manner, Wandering , Exit Seeking ,Disorganized. Continue to assess behaviors and condition will continue to monitor throughout the shift as needed. Plan: Continue to monitor Master Treatment Plan for patient's progress toward short term goals of No harm To self/ others, Decreased Aggression, seafood team member goals to return to previous living setting vs placement. Continue to assess patient for changes in above assessment. Monitor for medication needs, pain, and safety concerns. Hourly rounding performed to ensure safe environment.
--- NOTE | 2017-03-09 14:40 | NUR ---
SW met w/Pt's dtr and during lunch visiting hours to discuss [facility]. DAREN was told the SW CM named Marilu Webb at [phone] ext [phone] would be the contact for further [facility] placement. SW left message for Marilu at [facility]. SW received return call from Marilu stating she is in the process of finalizing necessary paperwork for contract placement. Family has chosen [facility] at 1st choice placement. SW will await call from Marilu or [facility] [employer] [facility] for further notification of admit acceptance.
[2017-03-09 15:51] VITALS: BP 118/63
--- NOTE | 2017-03-09 16:05 | RAD ---
Bilateral lower extremity venous ultrasound, 03/09/2017: History: Bilateral leg swelling Duplex evaluation of the deep veins in the lower extremities was performed including grayscale, color-flow and spectral Doppler analysis. The femoral and popliteal veins demonstrate normal compressibility and normal responses to distal augmentation maneuvers. Color imaging of those vessels shows no evidence of intraluminal clot. The visualized deep veins in both calves are patent. IMPRESSION: There is no sonographic evidence of deep vein thrombosis in either lower extremity.
--- NOTE | 2017-03-09 16:18 | HP ---
ADMIT DATE: 03/08/2017 PSYCHIATRIC ADMISSION HISTORY/EVALUATION This is a late entry for 03/08/2017. IDENTIFYING DATA: The patient is an 86-year-old male referred to us from the Emergency Room at the [facility] in [place], [place] and the patient's primary care physician at the [facility], who called us to help facilitate this transfer. The patient has a history of dementia, Alzheimer's vascular type. He has been living at home, having significant sundowning, medication adjustments as an outpatient had failed. He has marked insomnia, paranoia, agitation, aggression and he has failed outpatient treatment with Dr. Donohue resulting in this referral. CHIEF COMPLAINT: "I am okay." The patient had initially refused to go for a supper. I met with him in the day room and after visit and evaluation, he was agreeable to going to supper and I walked part of the distance with him, then nursing staff to go. Earlier in the day I had been paged as an emergency by nursing staff on account of the patient's marked agitation, aggression, uncontrollable behaviors and we added Zyprexa p.r.n. to help with the psychosis. "I am okay. I am waiting for my son. I need to leave." HISTORY OF PRESENT ILLNESS: The patient has a history of dementia, Alzheimer's vascular type. He has been reportedly living at home with his and has been in outpatient treatment with Dr. Donohue. More recently, he has had marked insomnia, psychosis, agitation, aggression as noted above, worse in the evening with sundowning. No clear history of bipolar disorder, suicidal or homicidal ideation. PAST PSYCHIATRIC HISTORY: As above. The patient reportedly was hospitalized with pneumonia in December of this year and states since then he has had a marked and rapid decline. MEDICAL HISTORY: Positive for hypertension, coronary artery disease, hyperlipidemia, obesity, hypokalemia, osteoarthritis. The patient has a right lower lobe effusion and has been on Zithromax and intramuscular Rocephin. DRUG ALLERGIES: ASPIRIN, LORTAB. CODE STATUS: DNR. CURRENT PSYCHOTROPICS: Risperdal 0.25 mg b.i.d., Aricept 5 mg a day, Seroquel 25 mg at bedtime, Lexapro 10 mg a day and then Zyprexa was added earlier in the day by me. SOCIAL HISTORY: No history of alcohol, drug abuse, physical, sexual or elder abuse. He is not known to be a perpetrator. MENTAL STATUS EXAMINATION: The patient was seen individually evening of 03/08/2017. He is oriented to himself. Insight, judgment, recent and remote memory, attention, concentration, fund of knowledge poor, consistent with his diagnoses. He ambulates with a walker. He is quite hard of hearing. VITAL SIGNS: Temperature 97.8, BP 171/80, pulse 63, respirations 20, O2 sats 96%. He slept just 1-3/4 hours previous night. IMPRESSION: Major neurocognitive disorder, Alzheimer, vascular with depression, delusion, behavioral disturbance; anxiety disorder, unspecified; impulse control disorder, unspecified. Rest diagnoses as above. PLAN: Admit to the geropsychiatry unit at [facility]. I will see the patient daily individually from a psychiatric standpoint. Medical followup with Dr. Galarza/Dr. Leon. Continue the patient on his current regimen. Zyprexa was added p.r.n. and he has had marked insomnia. We will start him on Remeron 7.5 mg at bedtime, melatonin 3 mg at bedtime as he was unable to tolerate trazodone in the past. Per nursing report on 03/08/2017, he has been yelling, agitated, repeatedly stating "help me, do not hurt me." He has been wandering, exit seeking, wanting to leave. RASHMI NEGRON MD DR: MARIA T/kofi JOB#: [id number] / [id number]
[2017-03-09] MEDS ORDERED: traZODone 50 MG TABLET. PO PRN (18:15)
[2017-03-09] MEDS: MELATONIN 3 MG TABLET PO SCH (19:08)
[2017-03-09] MEDS: DONEPEZIL HCL 5 MG TABLET. PO SCH (19:09)
[2017-03-09] MEDS: TAMSULOSIN 0.4 MG CAP.ER.24H. PO SCH (19:09)
[2017-03-09] MEDS: MIRTAZAPINE 7.5 MG TABLET. PO SCH (19:09)
--- NOTE | 2017-03-09 19:20 | NUR ---
Behavior Intervention Response and Plan: BIRP Note: Behavior: Assumed Care of patient, patient located in Day Room at shift change. Patient exhibited the following behavior Restless, Agitated, Resistive. Brief assessment on rounds of vital signs, medication needs, lab studies, and pain. Treatment plan problems . Intervention: Patient assessed and the following interventions initiated safety checks 15 Minute Checks Cognitive Assessment , Head to toe Assessment , Medications. Response: After interactions and interventions patient responded in the following manner, Restless , Agitated ,Resistive. Continue to assess behaviors and condition will continue to monitor throughout the shift as needed. Plan: Continue to monitor Master Treatment Plan for patient's progress toward short term goals of Decreased Agitation, Decreased Anxiety, retirement goals to return to previous living setting vs placement. Continue to assess patient for changes in above assessment. Monitor for medication needs, pain, and safety concerns. Hourly rounding performed to ensure safe environment.
[2017-03-09] MEDS ORDERED: ONDANSETRON ODT 4 MG TAB.RAPDIS PO PRN (19:45)
--- NOTE | 2017-03-09 20:13 | CONS ---
DATE OF CONSULTATION: 03/08/2017 REASON FOR CONSULTATION: Medical management. HISTORY OF PRESENT ILLNESS: The patient is an 86-year-old male patient, who apparently was admitted to [facility] with severe influenza B illness and pneumonia in December and since that time, he has never returned to his prior baseline mentation. The patient has grown more confused, agitated, sundowning type presentation, hallucinating that his sister in the room, paranoid, severe insomnia, aggressive and frequent falls. His behavior become beyond control even with constant family at his side and was [facility]. The patient himself is very demented and does not really give any useful information. PAST MEDICAL HISTORY: Significant for hypertension, coronary artery disease, hyperlipidemia, and osteoarthritis. PAST PSYCHIATRIC HISTORY: Significant for dementia and anxiety. PAST SURGICAL HISTORY: Unobtainable. FAMILY HISTORY: Noncontributory. SOCIAL HISTORY: He lives with his . Currently, he does not smoke, drink alcohol or use any recreational drugs. REVIEW OF SYSTEMS: Unobtainable. ALLERGIES: Allergic to ASPIRIN and HYDROCODONE. MEDICATIONS: He is currently on the following medications: Acetaminophen 650 mg. He is on Tylenol No. 3 one tablet every 6 hours, Lipo-Flavonoid Plus tablet 1 tablet twice a day, cholecalciferol (vitamin D) 2000 units once a day, cyanocobalamin 5000 mcg p.o. daily, Aricept 5 mg at bedtime, escitalopram oxalate 10 mg daily, glucosamine chondroitin sulfate 1500 mg twice a day, hydrochlorothiazide 25 mg daily, loratadine 10 mg once a day, polyethylene glycol 17 grams once a day, potassium chloride 30 mEq twice a day, quetiapine fumarate 0.25 mg twice a day, Flomax 0.4 mg at bedtime, multivitamin 1 tablet twice, PreserVision AREDS soft gel one twice a day. PHYSICAL EXAMINATION: GENERAL: When I examined him, he was sitting comfortably in his wheelchair in no apparent distress, slightly pale. No jaundice, cyanosis, or thyromegaly. No jugular venous distention, but bilateral limb edema with swelling more on the left than the right. VITAL SIGNS: His heart rate was 78, blood pressure 160/83, temperature was 98.3, respiratory rate was 16, and oxygen saturation was 96% on room air. HEAD, EYES, EARS, NOSE, AND THROAT: Showed normocephalic, atraumatic. NECK: Supple. HEART: Showed normal first and second heart sounds with no gallop, rub or murmur. CHEST: Clear to auscultation. No crepitation or rhonchi. ABDOMEN: Distended, soft, nontender. NEUROLOGIC: He is awake, alert, but very confused and disoriented. All his cranial nerves are intact. EXTREMITIES: He moves extremities without difficulty, although he is mostly wheelchair bound. He is very unsteady on his gait. He has bilateral lower extremity swelling, more so on the left than the right. LABORATORY DATA: On admission showed a white count 4300, hemoglobin 11.8, hematocrit 34.4, MCV 95 and platelet count 204,000. His chemistry showed a serum sodium 141, potassium 3.7, chloride 104, bicarbonate 29, anion gap of 8, BUN 19, creatinine 0.9. Estimated GFR was 80 mL per minute. His glucose 99, calcium was 8.7, and magnesium was 2.1. His serum iron was 49, total iron binding capacity was 264, percent saturation of 19. Total bilirubin, AST, ALT, alkaline phosphatase were normal. Total protein was 7.6, albumin 4. His triglycerides were 82. Total cholesterol was 192, LDL cholesterol was 92, VLDL was 16, and HDL cholesterol was 84 and the ratio was 2. His vitamin B12 was 721 pg/mL and TSH was 3.641. His urinalysis was essentially unremarkable. Urine toxicology screen was positive for opiates. His RPR was nonreactive. CT scan of the head showed no acute intracranial findings. He has patchy bilateral parenchymal densities, finding could represent atelectasis versus developing airspace disease. He did have a CT angio, which showed that he has mild cardiomegaly identified. Coronary artery calcification identified. There is no evidence of filling defects identified in the main pulmonary artery, arterial trunk, and the right and left main pulmonary arteries. The visualized lobar and segmental branches, mild patchy bibasilar lung airspace opacities, likely atelectasis or infiltrate. A 4 mm nodule identified in the left lingula. The visualized liver demonstrates subcentimeter hypodensity in the left lobe of the liver, moderate degenerative changes of thoracic spine. Spinal stimulator leads identified in the thoracic vertebral level. A 1.1 cm structure identified in the right kidney, probably a cyst or cystic lesion. A 1 cm hyperdensity probably hyperdense cyst is identified in the left kidney. IMPRESSION: In summary, this is an 86-year-old male patient who apparently had deterioration in mental status since admission to [facility] with severe post-influenza pneumonia. He apparently has been restless, agitated, more confused, sundowning type presentation, hallucinating, paranoid, has severe insomnia, aggressive and has frequent falls. Medically, he apparently is known to have hypertension, benign prostatic hypertrophy and mild normochromic normocytic anemia. His CT scan of the chest with PE protocol showed that he has lung airspace opacities, likely atelectasis or infiltrate. The patient is afebrile. His white cell count is normal. His oxygen is normal at 96% on room air. I am not really very convinced, although Dr. Victor started him already on ceftriaxone 1 gram daily intramuscular as well as Zithromax. I will continue with that. His potassium is low, so we will make sure that he is taking his potassium. However, all in all, the patient seems to be stable medically. I will obviously review all the lab work that are still pending and make any necessary adjustment. Thank you, Dr. Cleaning for allowing me to participate in the care of this patient. VIK ZULUAGA MD DR: BRENDAN/kofi JOB#: [id number] / [id number]
--- NOTE | 2017-03-09 21:03 | PDOC ---
Exam Earle Demential Exam: Earle Note: Please also refer to the separate dictated note~for this date of service dictated separately.~Patient seen individually. Discussed the patient with Nursing staff reviewed the chart.~Reviewed interim history and current functioning. Reviewed vital signs,~Labs/ Radiology~and current medications noted below. Continue current treatment with the changes noted in the dictated addendum note Assessment: Vital Signs: Vital Signs Date Time Temp Pulse Resp B/P Pulse Ox O2 Delivery O2 Flow Rate FiO2 03/09/17 15:51 97.9 68 18 118/63 97 03/09/17 05:45 Room Air I&O Intake and Output 03/09/17 07:00 Intake Total 840 ml Balance 840 ml Intake Oral 840 ml Labs: Laboratory Tests Test 03/09/17 07:27 Sodium Level 143mmol/L (136-145) Potassium Level 3.6mmol/L (3.5-5.1) Chloride Level 104mmol/L (98-107) Carbon Dioxide Level 28mmol/L (21-32) Anion Gap 11 (6-14) Blood Urea Nitrogen 20mg/dL (8-26) # Creatinine 0.6mg/dL (0.7-1.3) L Estimated GFR (Cockcroft-Gault) 127.7 Glucose Level 103mg/dL (70-99) H Calcium Level 9.5mg/dL (8.5-10.1) Current Medications: Meds: Current Medications Lactated Ringer's (Iv Lactated Ringers) 1,000 ml @ 1,000 mls/hr Q1H IV Last administered on 03/07/17 18:12; Start 03/07/17 at 18:00; Stop 03/07/17 at 23:12 ; Status DC Diphenhydramine HCl (Benadryl) 50 mg 1X ONCE IVP Last administered on 18:14; Start 03/07/17 at 18:15; Stop 03/07/17 at 18:16; Status DC Lorazepam (Ativan) 2 mg 1X ONCE IV Last administered on 03/07/17 18:19; Start 03/07/17 at 18:15; Stop 03/07/17 at 18:16; Status DC Haloperidol Lactate (Haldol) 5 mg 1X ONCE IVP ; Start 03/07/17 at 18:15; Stop 03/07/17 at 23:16; Status DC Iohexol 75 ml 75 ml 1X ONCE IV Last administered on 03/07/17 19:08; Start at 19:15; Stop 03/07/17 at 19:16; Status DC Ceftriaxone Sodium/Sodium Chloride (Rocephin/Iv Sodium Chloride 0.9% 50ml) 50 ml @ 100 mls/hr 1X ONCE IV ; Start 03/07/17 at 20:30; Stop 03/07/17 at 20:59; Status Cancel Azithromycin 500 mg 500 mg 1X ONCE PO ; Start 03/07/17 at 20:30; Stop 03/07/17 at 20:31; Status Cancel Ceftriaxone Sodium/Sodium Chloride (Rocephin/Iv Sodium Chloride 0.9% 50ml) 50 ml @ 100 mls/hr 1X ONCE IV ; Start 03/07/17 at 21:00; Stop 03/07/17 at 23:12; Status DC Azithromycin (Zithromax) 500 mg 1X ONCE PO Last administered on 03/07/17 20: 51; Start 03/07/17 at 21:00; Stop 03/07/17 at 21:01; Status DC Azithromycin (Zithromax) 250 mg DAILY06 PO Last administered on 03/09/17 05:34 ; Start 03/08/17 at 06:00 Ceftriaxone Sodium (Rocephin Im) 1 gm DAILY IM Last administered on 03/09/17 07:59; Start 03/08/17 at 09:00 Albuterol/ Ipratropium 3 ml 3 ml RTQID NEB Last administered on 03/09/17 05:45 ; Start 03/07/17 at 21:00 Sodium Chloride (Iv Sodium Chloride 0.9% 50ml) 50 ml @ As Directed STK-MED ONCE .ROUTE ; Start 03/07/17 at 20:55; Stop 03/07/17 at 23:12; Status DC Ceftriaxone Sodium (Rocephin) 1 gm STK-MED ONCE IV ; Start 03/07/17 at 20:55; Stop 03/07/17 at 20:56; Status DC Donepezil HCl (Aricept) 5 mg QHS PO Last administered on 03/09/17 19:09; Start 03/08/17 at 21:00 Escitalopram Oxalate (Lexapro) 10 mg DAILY PO Last administered on 03/09/17 08 :00; Start 03/08/17 at 09:00 Quetiapine Fumarate (SEROquel) 25 mg QHS PO Last administered on 03/08/17 21: 09; Start 03/08/17 at 21:00; Stop 03/09/17 at 18:11; Status DC Risperidone (Risperdal) 0.25 mg BID PO Last administered on 03/09/17 19:09; Start 03/08/17 at 09:00 Non-Formulary Medication 1 each BID PO ; Start 03/08/17 at 09:00; Stop 03/08/17 at 09:00; Status DC Vitamin D (Vitamin D3) 2,000 unit DAILY PO ; Start 03/08/17 at 09:00; Stop 03/08 at 09:00; Status DC Cyanocobalamin (Vitamin B-12) 5,000 mcg DAILY PO ; Start 03/08/17 at 09:00; Stop 03/08/17 at 09:00; Status DC Cetirizine HCl (Zyrtec) 10 mg DAILY PO ; Start 03/08/17 at 09:00; Stop 03/08/17 at 09:00; Status DC Potassium Chloride (Klor-Con) 30 meq BIDWMEALS PO ; Start 03/08/17 at 08:00; Stop 03/08/17 at 08:00; Status DC Acetaminophen/ Codeine Phosphate (Tylenol #3) 1 tab PRN Q6HRS PRN PO PAIN; Start 03/08/17 at 08:45 Glucosamine/ Chondroitin (Glucosamine-Chondroitin 500/400mg) 1 cap BID PO Last administered on 03/09/17 19:09; Start 03/08/17 at 09:00 Hydrochlorothiazide (Hydrodiuril) 25 mg DAILY PO Last administered on 08:00; Start 03/08/17 at 09:00 Polyethylene Glycol (miraLAX) 17 gm DAILY PO Last administered on 03/09/17 07: 59; Start 03/08/17 at 09:00 Tamsulosin HCl (Flomax) 0.4 mg QHS PO Last administered on 03/09/17 19:09; Start 03/08/17 at 21:00 Multivitamins/ Minerals (Preservision) 1 cap BID PO Last administered on 19:11; Start 03/08/17 at 09:00 Olanzapine (Zyprexa Zydis) 2.5 mg PRN Q2HR PRN PO ANXIETY / AGITATION Last administered on 03/08/17 23:53; Start 03/08/17 at 12:30 Mirtazapine (Remeron) 7.5 mg QHS PO Last administered on 03/09/17 19:09; Start 03/08/17 at 21:00 Melatonin 3 mg QHS PO Last administered on 03/09/17 19:08; Start 03/08/17 at 21:00 Trazodone HCl (Desyrel) 50 mg PRN QHS PRN PO INSOMNIA, MAY REPEAT X1; Start at 18:15 Ondansetron HCl (Zofran Odt) 4 mg PRN Q4HRS PRN PO NAUSEA/VOMITING; Start 03/09 at 19:45 Active Scripts Active Reported Claritin (Loratadine) 10 Mg Tablet 10 Mg PO DAILY Vitamin B12 (Cyanocobalamin (Vitamin B-12)) 5,000 Mcg Tab.rapdis 5,000 Mcg PO DAILY Vitamin D-3 (Cholecalciferol (Vitamin D3)) 2,000 Unit Tablet 2,000 Unit PO DAILY Glucosamine-Chondroitin Cap (Glucosamine/Chondroitin Sulf A) 1 Each Capsule 1, 500 Mg PO BID Lipo-Flavonoid Plus Caplet (Bioflav,Lemon/Vit Bcomp&C) 1 Each Tablet 1 Each PO BID Preservision Areds Softgel (Vit A/Vit C/Vit E/Zinc/Copper) 1 Each Capsule 1 Each PO BID Polyethylene Glycol 3350 17 Gm Powd.pack 17 Gm PO DAILY Tylenol With Codeine #3 Tablet (Acetaminophen With Codeine) 1 Each Tablet 1 Tab PO PRN Q6HRS PRN Quetiapine Fumarate 25 Mg Tablet 25 Mg PO QHS Donepezil Hcl 5 Mg Tablet 5 Mg PO QHS Risperdal (Risperidone) 0.25 Mg Tablet 0.25 Mg PO BID Escitalopram Oxalate 10 Mg Tablet 10 Mg PO DAILY Tamsulosin Hcl 0.4 Mg Cap.er.24h 0.4 Mg PO QHS Potassium Chloride 20 Meq Tablet.er 30 Meq PO BID Hydrochlorothiazide Tablet (Hydrochlorothiazide) 25 Mg Tablet 25 Mg PO DAILY Diagnosis: Problems: (1) Anxiety disorder (2) Dementia in Alzheimer's disease with delusions (3) Dementia in Alzheimer's disease with depression (4) Dementia, vascular, with delusions (5) Dementia, vascular, with depression (6) Impulse control disorder RASHMI NEGRON MD Mar 09, 2017 21:03
[2017-03-09 21:06] VITALS: BP 156/87
[2017-03-10] MEDS: IPRATRPIUM/ALBUTEROL 0.5/2.5MG 3 ML NEBU. NEB SCH ×4 (05:46→20:47)
[2017-03-10] MEDS: AZITHROMYCIN 250 MG TABLET. PO SCH (06:25)
[2017-03-10 06:40] VITALS: BP 150/86
[2017-03-10] MEDS: POLYETHYLENE GLYCOL 3350 17 GM PACKET. PO SCH (09:10)
[2017-03-10] MEDS: hydroCHLOROthiazide 25 MG TABLET PO SCH (09:10)
[2017-03-10] MEDS: MULTIVITAMIN PRESERVISION CAPSULE. PO SCH ×2 (09:10→19:29)
[2017-03-10] MEDS: risperiDONE 0.25 MG TABLET. PO SCH ×3 (09:10→19:28)
[2017-03-10] MEDS: ESCITALOPRAM 10 MG TABLET. PO SCH (09:10)
[2017-03-10] MEDS: GLUCOSAMINE/CHOND 500/400MG CAPSULE PO SCH ×2 (09:10→19:28)
[2017-03-10] MEDS: cefTRIAXone IM 1 GM VIAL IM SCH (09:11)
--- NOTE | 2017-03-10 10:28 | NUR ---
Behavior Intervention Response and Plan: BIRP Note: Behavior: Assumed Care of patient, patient located in Patient Room at shift change. Patient exhibited the following behavior Disorganized, Exit Seeking, Wandering. Brief assessment on rounds of vital signs, medication needs, lab studies, and pain. Treatment plan problems . Intervention: Patient assessed and the following interventions initiated safety checks 15 Minute Checks Head to toe Assessment , Medications , Oral Hydration. Response: After interactions and interventions patient responded in the following manner, Demanding , Resistive ,Agitated. Continue to assess behaviors and condition will continue to monitor throughout the shift as needed. Plan: Continue to monitor Master Treatment Plan for patient's progress toward short term goals of No harm To self/ others, Medication Compliance, assisted goals to return to previous living setting vs placement. Continue to assess patient for changes in above assessment. Monitor for medication needs, pain, and safety concerns. Hourly rounding performed to ensure safe environment.
--- NOTE | 2017-03-10 11:15 | NUR ---
THERAPEUTIC RECREATION GROUP NOTE TITLE :Movement to Music: Flexibility ACTIVITY : Movement/ Exercise GOAL : Increase morale, attention, flexibility. Decrease stress/anxiety. DURATION : 40 Minutes RESPONSE : Full participation. Pt. followed along with the moves with a smile on his face the entire time. He asked for a copy of the workout. He needed occasional encouragement.
--- NOTE | 2017-03-10 14:00 | NUR ---
THERAPEUTIC RECREATION GROUP NOTE TITLE :Balloon Bop with Noodles ACTIVITY : Activities and Games GOAL : Increase socialization and alertness. Maintain/improve mental and physical functioning. DURATION : 30 minutes RESPONSE : No participation.
--- NOTE | 2017-03-10 14:43 | NUR ---
DAREN received call from PT's dtr, Romeo with several questions regarding dc plans. DAREN explained the CARE Assessment will be conducted to ensure placement in a LTCF is appropriate level of care. SW addressed the concern w/transportation and ensured transport would be arranged w/the accepting facility. Family is concerned Pt. may be placed in the memory care unit and believe he may be a better fit for the general population hallways. DAREN stated the facility would screen PT. sometime early next week and gather information from the aides and nursing to make a team decision. The timeline for referral and admit will be a result of improvements and final decision by MD on dc date. DAREN encouraged Romeo to ask nursing staff more about the specific behaviors during visiting hours.
--- NOTE | 2017-03-10 14:45 | NUR ---
Attempted to meet and complete Activity Therapy Assessment; however, Pt. was sleeping. [employer] FORESTER will try again tomorrow.
[2017-03-10 15:46] VITALS: BP 158/68
[2017-03-10] MEDS: TAMSULOSIN 0.4 MG CAP.ER.24H. PO SCH (19:28)
[2017-03-10] MEDS: DONEPEZIL HCL 5 MG TABLET. PO SCH (19:28)
[2017-03-10] MEDS: MELATONIN 3 MG TABLET PO SCH (19:28)
[2017-03-10] MEDS: MIRTAZAPINE 7.5 MG TABLET. PO SCH (19:35)
[2017-03-10] MEDS ORDERED: MIRTAZAPINE 7.5 MG TABLET. PO SCH (21:00)
--- NOTE | 2017-03-10 21:08 | PDOC ---
Exam Earle Demential Exam: Earle Note: Please also refer to the separate dictated note~for this date of service dictated separately.~Patient seen individually. Discussed the patient with Nursing staff reviewed the chart.~Reviewed interim history and current functioning. Reviewed vital signs,~Labs/ Radiology~and current medications noted below. Continue current treatment with the changes noted in the dictated addendum note Assessment: Vital Signs: Vital Signs Date Time Temp Pulse Resp B/P Pulse Ox O2 Delivery O2 Flow Rate FiO2 03/10/17 20:49 95 Room Air 03/10/17 15:46 98.3 96 18 158/68 I&O Intake and Output 03/10/17 07:00 Intake Total 1080 ml Balance 1080 ml Intake Oral 1080 ml # Bowel Movements 2 Current Medications: Meds: Current Medications Lactated Ringer's (Iv Lactated Ringers) 1,000 ml @ 1,000 mls/hr Q1H IV Last administered on 03/07/17 18:12; Start 03/07/17 at 18:00; Stop 03/07/17 at 23:12 ; Status DC Diphenhydramine HCl (Benadryl) 50 mg 1X ONCE IVP Last administered on 18:14; Start 03/07/17 at 18:15; Stop 03/07/17 at 18:16; Status DC Lorazepam (Ativan) 2 mg 1X ONCE IV Last administered on 03/07/17 18:19; Start 03/07/17 at 18:15; Stop 03/07/17 at 18:16; Status DC Haloperidol Lactate (Haldol) 5 mg 1X ONCE IVP ; Start 03/07/17 at 18:15; Stop 03/07/17 at 23:16; Status DC Iohexol 75 ml 75 ml 1X ONCE IV Last administered on 03/07/17 19:08; Start at 19:15; Stop 03/07/17 at 19:16; Status DC Ceftriaxone Sodium/Sodium Chloride (Rocephin/Iv Sodium Chloride 0.9% 50ml) 50 ml @ 100 mls/hr 1X ONCE IV ; Start 03/07/17 at 20:30; Stop 03/07/17 at 20:59; Status Cancel Azithromycin 500 mg 500 mg 1X ONCE PO ; Start 03/07/17 at 20:30; Stop 03/07/17 at 20:31; Status Cancel Ceftriaxone Sodium/Sodium Chloride (Rocephin/Iv Sodium Chloride 0.9% 50ml) 50 ml @ 100 mls/hr 1X ONCE IV ; Start 03/07/17 at 21:00; Stop 03/07/17 at 23:12; Status DC Azithromycin (Zithromax) 500 mg 1X ONCE PO Last administered on 03/07/17 20: 51; Start 03/07/17 at 21:00; Stop 03/07/17 at 21:01; Status DC Azithromycin (Zithromax) 250 mg DAILY06 PO Last administered on 03/10/17 06:25 ; Start 03/08/17 at 06:00 Ceftriaxone Sodium (Rocephin Im) 1 gm DAILY IM Last administered on 03/10/17 09:11; Start 03/08/17 at 09:00 Albuterol/ Ipratropium 3 ml 3 ml RTQID NEB Last administered on 03/10/17 20:47 ; Start 03/07/17 at 21:00 Sodium Chloride (Iv Sodium Chloride 0.9% 50ml) 50 ml @ As Directed STK-MED ONCE .ROUTE ; Start 03/07/17 at 20:55; Stop 03/07/17 at 23:12; Status DC Ceftriaxone Sodium (Rocephin) 1 gm STK-MED ONCE IV ; Start 03/07/17 at 20:55; Stop 03/07/17 at 20:56; Status DC Donepezil HCl (Aricept) 5 mg QHS PO Last administered on 03/10/17 19:28; Start 03/08/17 at 21:00 Escitalopram Oxalate (Lexapro) 10 mg DAILY PO Last administered on 03/10/17 09 :10; Start 03/08/17 at 09:00 Quetiapine Fumarate (SEROquel) 25 mg QHS PO Last administered on 03/08/17 21: 09; Start 03/08/17 at 21:00; Stop 03/09/17 at 18:11; Status DC Risperidone (Risperdal) 0.25 mg BID PO Last administered on 03/10/17 09:10; Start 03/08/17 at 09:00; Stop 03/10/17 at 21:00; Status DC Non-Formulary Medication 1 each BID PO ; Start 03/08/17 at 09:00; Stop 03/08/17 at 09:00; Status DC Vitamin D (Vitamin D3) 2,000 unit DAILY PO ; Start 03/08/17 at 09:00; Stop 03/08 at 09:00; Status DC Cyanocobalamin (Vitamin B-12) 5,000 mcg DAILY PO ; Start 03/08/17 at 09:00; Stop 03/08/17 at 09:00; Status DC Cetirizine HCl (Zyrtec) 10 mg DAILY PO ; Start 03/08/17 at 09:00; Stop 03/08/17 at 09:00; Status DC Potassium Chloride (Klor-Con) 30 meq BIDWMEALS PO ; Start 03/08/17 at 08:00; Stop 03/08/17 at 08:00; Status DC Acetaminophen/ Codeine Phosphate (Tylenol #3) 1 tab PRN Q6HRS PRN PO PAIN; Start 03/08/17 at 08:45 Glucosamine/ Chondroitin (Glucosamine-Chondroitin 500/400mg) 1 cap BID PO Last administered on 03/10/17 19:28; Start 03/08/17 at 09:00 Hydrochlorothiazide (Hydrodiuril) 25 mg DAILY PO Last administered on 09:10; Start 03/08/17 at 09:00 Polyethylene Glycol (miraLAX) 17 gm DAILY PO Last administered on 03/10/17 09: 10; Start 03/08/17 at 09:00 Tamsulosin HCl (Flomax) 0.4 mg QHS PO Last administered on 03/10/17 19:28; Start 03/08/17 at 21:00 Multivitamins/ Minerals (Preservision) 1 cap BID PO Last administered on 19:29; Start 03/08/17 at 09:00 Olanzapine (Zyprexa Zydis) 2.5 mg PRN Q2HR PRN PO ANXIETY / AGITATION Last administered on 03/08/17 23:53; Start 03/08/17 at 12:30 Mirtazapine (Remeron) 7.5 mg QHS PO Last administered on 03/10/17 19:35; Start 03/08/17 at 21:00 Melatonin 3 mg QHS PO Last administered on 03/10/17 19:28; Start 03/08/17 at 21:00 Trazodone HCl (Desyrel) 50 mg PRN QHS PRN PO INSOMNIA, MAY REPEAT X1; Start at 18:15; Stop 03/10/17 at 11:35; Status DC Ondansetron HCl (Zofran Odt) 4 mg PRN Q4HRS PRN PO NAUSEA/VOMITING; Start 03/09 at 19:45 Risperidone (Risperdal) 0.25 mg HS PO Last administered on 03/10/17t 19:28; Start 03/10/17 at 21:00 Mirtazapine (Remeron) 7.5 mg QHS PO ; Start 03/10/17 at 21:00; Stop 03/10/17 at 21:00; Status DC Active Scripts Active Reported Claritin (Loratadine) 10 Mg Tablet 10 Mg PO DAILY Vitamin B12 (Cyanocobalamin (Vitamin B-12)) 5,000 Mcg Tab.rapdis 5,000 Mcg PO DAILY Vitamin D-3 (Cholecalciferol (Vitamin D3)) 2,000 Unit Tablet 2,000 Unit PO DAILY Glucosamine-Chondroitin Cap (Glucosamine/Chondroitin Sulf A) 1 Each Capsule 1, 500 Mg PO BID Lipo-Flavonoid Plus Caplet (Bioflav,Lemon/Vit Bcomp&C) 1 Each Tablet 1 Each PO BID Preservision Areds Softgel (Vit A/Vit C/Vit E/Zinc/Copper) 1 Each Capsule 1 Each PO BID Polyethylene Glycol 3350 17 Gm Powd.pack 17 Gm PO DAILY Tylenol With Codeine #3 Tablet (Acetaminophen With Codeine) 1 Each Tablet 1 Tab PO PRN Q6HRS PRN Quetiapine Fumarate 25 Mg Tablet 25 Mg PO QHS Donepezil Hcl 5 Mg Tablet 5 Mg PO QHS Risperdal (Risperidone) 0.25 Mg Tablet 0.25 Mg PO BID Escitalopram Oxalate 10 Mg Tablet 10 Mg PO DAILY Tamsulosin Hcl 0.4 Mg Cap.er.24h 0.4 Mg PO QHS Potassium Chloride 20 Meq Tablet.er 30 Meq PO BID Hydrochlorothiazide Tablet (Hydrochlorothiazide) 25 Mg Tablet 25 Mg PO DAILY Diagnosis: Problems: (1) Anxiety disorder (2) Dementia in Alzheimer's disease with delusions (3) Dementia in Alzheimer's disease with depression (4) Dementia, vascular, with delusions (5) Dementia, vascular, with depression (6) Impulse control disorder RASHMI NEGRON MD Mar 10, 2017 21:08
--- NOTE | 2017-03-11 04:33 | NUR ---
Behavior Intervention Response and Plan: BIRP Note: Behavior: Assumed Care of patient, patient located in Patient Room at shift change. Patient exhibited the following behavior Irritable, Compliant, Cooperative. Brief assessment on rounds of vital signs, medication needs, lab studies, and pain. Treatment plan problems Dementia with BD and Fall Risk. Intervention: Patient assessed and the following interventions initiated safety checks 15 Minute Checks Cognitive Assessment , Head to toe Assessment , Medications. Response: After interactions and interventions patient responded in the following manner, Wandering , Irritable ,Compliant. Continue to assess behaviors and condition will continue to monitor throughout the shift as needed. Plan: Continue to monitor Master Treatment Plan for patient's progress toward short term goals of Medication Compliance, Decreased Aggression, longterm goals to return to previous living setting vs placement. Continue to assess patient for changes in above assessment. Monitor for medication needs, pain, and safety concerns. Hourly rounding performed to ensure safe environment.
[2017-03-11] MEDS: IPRATRPIUM/ALBUTEROL 0.5/2.5MG 3 ML NEBU. NEB SCH ×4 (04:56→20:05)
[2017-03-11 05:49] VITALS: BP 143/71
[2017-03-11] MEDS: AZITHROMYCIN 250 MG TABLET. PO SCH (05:52)
[2017-03-11] MEDS: GLUCOSAMINE/CHOND 500/400MG CAPSULE PO SCH ×2 (07:27→18:54)
[2017-03-11] MEDS: ESCITALOPRAM 10 MG TABLET. PO SCH (07:27)
[2017-03-11] MEDS: POLYETHYLENE GLYCOL 3350 17 GM PACKET. PO SCH (07:27)
[2017-03-11] MEDS: hydroCHLOROthiazide 25 MG TABLET PO SCH (07:27)
[2017-03-11] MEDS: cefTRIAXone IM 1 GM VIAL IM SCH (07:29)
[2017-03-11] MEDS: MULTIVITAMIN PRESERVISION CAPSULE. PO SCH ×2 (07:29→18:55)
--- NOTE | 2017-03-11 10:00 | NUR ---
Behavior Intervention Response and Plan: BIRP Note: Behavior: Assumed Care of patient, patient located in Patient Room at shift change. Patient exhibited the following behavior Disorganized, Irritable, Restless. Brief assessment on rounds of vital signs, medication needs, lab studies, and pain. Treatment plan problems . Intervention: Patient assessed and the following interventions initiated safety checks Cognitive Assessment , Head to toe Assessment , Medications. Response: After interactions and interventions patient responded in the following manner, Disorganized , Restless ,Drowsy. Continue to assess behaviors and condition will continue to monitor throughout the shift as needed. 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 Continue to assess patient for changes in above assessment. Monitor for medication needs, pain, and safety concerns. Hourly rounding performed to ensure safe environment.
--- NOTE | 2017-03-11 10:50 | NUR ---
ACTIVITY THERAPY ASSESSMENT Completed based on observations and interview on this day at this time in Pt's room. Pt. laid in bed and asked for help moving a few things. Pt. expressed he had trouble hearing and said his left ear was better than his right. DIRECTOR OF PUBLIC WORKS used a small whiteboard to write her questions and comments. Pt. read them with his glasses and verbally responded. Pt. was very kind and pleasant to talk with. He said he enjoys racing motorcycles and skiing. 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 He prefers to be called "Blanchard" and identifies himself as a risk-taker. He gave DIRECTOR OF PUBLIC WORKS words of wisdom to take care of your body, use your mind, and have goals. Pt. can be around groups or be alone. He has minimal conversations with others. Initial goal: Pt. will participate in all groups he is invited to.
[2017-03-11 15:51] VITALS: BP 148/82
--- NOTE | 2017-03-11 17:02 | NUR ---
pt up for meals. balence and gait unstaedy in am. yelling out from bed during am nap. when up for lunch with therapy pt did quite well. compliant with meds and cares.
[2017-03-11] MEDS: risperiDONE 0.25 MG TABLET. PO SCH (18:54)
[2017-03-11] MEDS: DONEPEZIL HCL 5 MG TABLET. PO SCH (18:54)
[2017-03-11] MEDS: TAMSULOSIN 0.4 MG CAP.ER.24H. PO SCH (18:54)
[2017-03-11] MEDS: MELATONIN 3 MG TABLET PO SCH (18:55)
[2017-03-11] MEDS: MIRTAZAPINE 7.5 MG TABLET. PO SCH (18:55)
--- NOTE | 2017-03-11 20:56 | PDOC ---
Exam Earle Demential Exam: Earle Note: Please also refer to the separate dictated note~for this date of service dictated separately.~Patient seen individually. Discussed the patient with Nursing staff reviewed the chart.~Reviewed interim history and current functioning. Reviewed vital signs,~Labs/ Radiology~and current medications noted below. Continue current treatment with the changes noted in the dictated addendum note Assessment: Vital Signs: Vital Signs Date Time Temp Pulse Resp B/P Pulse Ox O2 Delivery O2 Flow Rate FiO2 03/11/17 20:05 95 Room Air 03/11/17 15:51 98.4 90 20 148/82 I&O Intake and Output 03/11/17 07:00 Intake Total 1080 ml Balance 1080 ml Intake Oral 1080 ml # Voids 2 Current Medications: Meds: Current Medications Lactated Ringer's (Iv Lactated Ringers) 1,000 ml @ 1,000 mls/hr Q1H IV Last administered on 03/07/17 18:12; Start 03/07/17 at 18:00; Stop 03/07/17 at 23:12 ; Status DC Diphenhydramine HCl (Benadryl) 50 mg 1X ONCE IVP Last administered on 18:14; Start 03/07/17 at 18:15; Stop 03/07/17 at 18:16; Status DC Lorazepam (Ativan) 2 mg 1X ONCE IV Last administered on 03/07/17 18:19; Start 03/07/17 at 18:15; Stop 03/07/17 at 18:16; Status DC Haloperidol Lactate (Haldol) 5 mg 1X ONCE IVP ; Start 03/07/17 at 18:15; Stop 03/07/17 at 23:16; Status DC Iohexol 75 ml 75 ml 1X ONCE IV Last administered on 03/07/17 19:08; Start at 19:15; Stop 03/07/17 at 19:16; Status DC Ceftriaxone Sodium/Sodium Chloride (Rocephin/Iv Sodium Chloride 0.9% 50ml) 50 ml @ 100 mls/hr 1X ONCE IV ; Start 03/07/17 at 20:30; Stop 03/07/17 at 20:59; Status Cancel Azithromycin 500 mg 500 mg 1X ONCE PO ; Start 03/07/17 at 20:30; Stop 03/07/17 at 20:31; Status Cancel Ceftriaxone Sodium/Sodium Chloride (Rocephin/Iv Sodium Chloride 0.9% 50ml) 50 ml @ 100 mls/hr 1X ONCE IV ; Start 03/07/17 at 21:00; Stop 03/07/17 at 23:12; Status DC Azithromycin (Zithromax) 500 mg 1X ONCE PO Last administered on 03/07/17 20: 51; Start 03/07/17 at 21:00; Stop 03/07/17 at 21:01; Status DC Azithromycin (Zithromax) 250 mg DAILY06 PO Last administered on 03/11/17 05:52 ; Start 03/08/17 at 06:00 Ceftriaxone Sodium (Rocephin Im) 1 gm DAILY IM Last administered on 03/11/17 07:29; Start 03/08/17 at 09:00 Albuterol/ Ipratropium 3 ml 3 ml RTQID NEB Last administered on 03/11/17 20:05 ; Start 03/07/17 at 21:00 Sodium Chloride (Iv Sodium Chloride 0.9% 50ml) 50 ml @ As Directed STK-MED ONCE .ROUTE ; Start 03/07/17 at 20:55; Stop 03/07/17 at 23:12; Status DC Ceftriaxone Sodium (Rocephin) 1 gm STK-MED ONCE IV ; Start 03/07/17 at 20:55; Stop 03/07/17 at 20:56; Status DC Donepezil HCl (Aricept) 5 mg QHS PO Last administered on 03/11/17 18:54; Start 03/08/17 at 21:00 Escitalopram Oxalate (Lexapro) 10 mg DAILY PO Last administered on 03/11/17 07 :27; Start 03/08/17 at 09:00 Quetiapine Fumarate (SEROquel) 25 mg QHS PO Last administered on 03/08/17 21: 09; Start 03/08/17 at 21:00; Stop 03/09/17 at 18:11; Status DC Risperidone (Risperdal) 0.25 mg BID PO Last administered on 03/10/17 09:10; Start 03/08/17 at 09:00; Stop 03/10/17 at 21:00; Status DC Non-Formulary Medication 1 each BID PO ; Start 03/08/17 at 09:00; Stop 03/08/17 at 09:00; Status DC Vitamin D (Vitamin D3) 2,000 unit DAILY PO ; Start 03/08/17 at 09:00; Stop 03/08 at 09:00; Status DC Cyanocobalamin (Vitamin B-12) 5,000 mcg DAILY PO ; Start 03/08/17 at 09:00; Stop 03/08/17 at 09:00; Status DC Cetirizine HCl (Zyrtec) 10 mg DAILY PO ; Start 03/08/17 at 09:00; Stop 03/08/17 at 09:00; Status DC Potassium Chloride (Klor-Con) 30 meq BIDWMEALS PO ; Start 03/08/17 at 08:00; Stop 03/08/17 at 08:00; Status DC Acetaminophen/ Codeine Phosphate (Tylenol #3) 1 tab PRN Q6HRS PRN PO PAIN; Start 03/08/17 at 08:45 Glucosamine/ Chondroitin (Glucosamine-Chondroitin 500/400mg) 1 cap BID PO Last administered on 03/11/17 18:54; Start 03/08/17 at 09:00 Hydrochlorothiazide (Hydrodiuril) 25 mg DAILY PO Last administered on 07:27; Start 03/08/17 at 09:00 Polyethylene Glycol (miraLAX) 17 gm DAILY PO Last administered on 03/11/17 07: 27; Start 03/08/17 at 09:00 Tamsulosin HCl (Flomax) 0.4 mg QHS PO Last administered on 03/11/17 18:54; Start 03/08/17 at 21:00 Multivitamins/ Minerals (Preservision) 1 cap BID PO Last administered on 18:55; Start 03/08/17 at 09:00 Olanzapine (Zyprexa Zydis) 2.5 mg PRN Q2HR PRN PO ANXIETY / AGITATION Last administered on 03/08/17 23:53; Start 03/08/17 at 12:30 Mirtazapine (Remeron) 7.5 mg QHS PO Last administered on 03/11/17 18:55; Start 03/08/17 at 21:00 Melatonin 3 mg QHS PO Last administered on 03/11/17 18:55; Start 03/08/17 at 21:00 Trazodone HCl (Desyrel) 50 mg PRN QHS PRN PO INSOMNIA, MAY REPEAT X1; Start at 18:15; Stop 03/10/17 at 11:35; Status DC Ondansetron HCl (Zofran Odt) 4 mg PRN Q4HRS PRN PO NAUSEA/VOMITING; Start 03/09 at 19:45 Risperidone (Risperdal) 0.25 mg HS PO Last administered on 03/11/17t 18:54; Start 03/10/17 at 21:00 Mirtazapine (Remeron) 7.5 mg QHS PO ; Start 03/10/17 at 21:00; Stop 03/10/17 at 21:00; Status DC Melatonin 3 mg HS PO ; Start 03/11/17 at 21:00 Active Scripts Active Reported Claritin (Loratadine) 10 Mg Tablet 10 Mg PO DAILY Vitamin B12 (Cyanocobalamin (Vitamin B-12)) 5,000 Mcg Tab.rapdis 5,000 Mcg PO DAILY Vitamin D-3 (Cholecalciferol (Vitamin D3)) 2,000 Unit Tablet 2,000 Unit PO DAILY Glucosamine-Chondroitin Cap (Glucosamine/Chondroitin Sulf A) 1 Each Capsule 1, 500 Mg PO BID Lipo-Flavonoid Plus Caplet (Bioflav,Lemon/Vit Bcomp&C) 1 Each Tablet 1 Each PO BID Preservision Areds Softgel (Vit A/Vit C/Vit E/Zinc/Copper) 1 Each Capsule 1 Each PO BID Polyethylene Glycol 3350 17 Gm Powd.pack 17 Gm PO DAILY Tylenol With Codeine #3 Tablet (Acetaminophen With Codeine) 1 Each Tablet 1 Tab PO PRN Q6HRS PRN Quetiapine Fumarate 25 Mg Tablet 25 Mg PO QHS Donepezil Hcl 5 Mg Tablet 5 Mg PO QHS Risperdal (Risperidone) 0.25 Mg Tablet 0.25 Mg PO BID Escitalopram Oxalate 10 Mg Tablet 10 Mg PO DAILY Tamsulosin Hcl 0.4 Mg Cap.er.24h 0.4 Mg PO QHS Potassium Chloride 20 Meq Tablet.er 30 Meq PO BID Hydrochlorothiazide Tablet (Hydrochlorothiazide) 25 Mg Tablet 25 Mg PO DAILY Diagnosis: Problems: (1) Anxiety disorder (2) Dementia in Alzheimer's disease with delusions (3) Dementia in Alzheimer's disease with depression (4) Dementia, vascular, with delusions (5) Dementia, vascular, with depression (6) Impulse control disorder RASHMI NEGRON MD Mar 11, 2017 20:56
[2017-03-11] MEDS ORDERED: MELATONIN 3 MG TABLET PO SCH (21:00)
[2017-03-12] MEDS: AZITHROMYCIN 250 MG TABLET. PO SCH (04:35)
[2017-03-12] MEDS: IPRATRPIUM/ALBUTEROL 0.5/2.5MG 3 ML NEBU. NEB SCH ×4 (05:01→20:02)
[2017-03-12 05:55] VITALS: BP 152/90
[2017-03-12] MEDS: hydroCHLOROthiazide 25 MG TABLET PO SCH (07:50)
[2017-03-12] MEDS: GLUCOSAMINE/CHOND 500/400MG CAPSULE PO SCH ×2 (07:50→19:34)
[2017-03-12] MEDS: POLYETHYLENE GLYCOL 3350 17 GM PACKET. PO SCH (07:50)
[2017-03-12] MEDS: ESCITALOPRAM 10 MG TABLET. PO SCH (07:50)
[2017-03-12] MEDS: cefTRIAXone IM 1 GM VIAL IM SCH (07:51)
[2017-03-12] MEDS: MULTIVITAMIN PRESERVISION CAPSULE. PO SCH ×2 (07:51→19:52)
--- NOTE | 2017-03-12 08:48 | PN ---
DATE: 03/09/2017 PSYCHIATRIC PROGRESS NOTE This is a late entry for 03/09/2017, covers elements not covered in my initial note. SUBJECTIVE: The patient has been somewhat sedated during the day, sleeps in his wheelchair, somewhat tired. Not sleeping well at night. REVIEW OF SYSTEMS: Ambulation impaired and ambulates with a walker. Hard of hearing. No CV, , Pulmonary, eye system symptoms on review, quite confused. MENTAL STATUS EXAM: Oriented to himself, at times to situation. Speech, often responses monosyllabic. Abstraction fair, computation impaired, language function intact, attention span short. Mood and affect a little labile at times. Certainly confused. LABORATORY DATA: Reviewed. IMPRESSION: Major neurocognitive disorder, early Alzheimer, vascular with depression, delusions; anxiety disorder, unspecified; cognitive disorder, unspecified. PLAN: Stop the Seroquel 25 mg at bedtime consequent to his sedation and to avoid duplication with Risperdal 0.25 mg b.i.d. Start trazodone 50 mg at bedtime p.r.n., may repeat x 1 for insomnia. Maintain Aricept 5 mg a day, Lexapro 10 mg. Adjust further as clinically indicated. RASHMI NEGRON MD DR: MARIA T/kofi JOB#: [id number] / [id number]
--- NOTE | 2017-03-12 09:16 | PN ---
DATE: 03/10/2017 PSYCHIATRIC PROGRESS NOTE This is late entry of 03/10/2017, covers elements not covered in my initial note. SUBJECTIVE: The patient was staffed at a lengthy treatment team meeting with the entire team and the patient's daughter, Rodrigo attending morning of 03/10/2017 and the patient seen individually at length evening of 03/10/2017. This note cover elements not covered in my initial note. The patient has been sleeping better on the trazodone, still somewhat depressed. The daughter gave a very detailed history about patient's prostate cancer that he had radiation and 2 years back around that time, he was having difficulty completing sentences. Since then until recently he is done reasonably well from a memory standpoint, though he is hard of hearing and this complicates communication somewhat. Symptoms appeared to worsen recently following his pneumonia and then he was more confused, psychotic, wandering, agitated after he was hospitalized in December of this year. Sundowning seemed to worsen thereafter. He is typical routine at home as he sleeps about 12 hours at night, naps twice a day. REVIEW OF SYSTEMS: Hard of hearing, impaired ambulation with a walker. No CV, , pulmonary, eye system symptoms on review. Family was concerned about infection in his eye, I will defer to Dr. Galarza. MENTAL STATUS EXAM: Oriented to himself. Speech has some latency, coherent. Abstraction fair, computation impaired, language function intact, attention span short. No overt psychotic symptoms noted. LABORATORY DATA: Reviewed. IMPRESSION: Major neurocognitive disorder, Alzheimer, vascular with delusion, delirium, anxiety disorder, unspecified. Rest diagnoses unchanged. PLAN: Family states that he could not tolerate trazodone in the past and felt he had side effects from it. We will stop it and start Remeron 7.5 mg at bedtime, reduce the Risperdal from 0.25 mg b.i.d. to 0.25 mg at bedtime with a plan to stop it in due course, continue Aricept 5 mg a day, Lexapro 10 mg a day. Make further adjustments as clinically indicated, minimize use of psychotropics as requested by the family and I am in agreement with this. RASHMI NEGRON MD DR: MARIA T/kofi JOB#: [id number] / [id number]
--- NOTE | 2017-03-12 10:45 | NUR ---
Behavior Intervention Response and Plan: BIRP Note: Behavior: Assumed Care of patient, patient located in Day Room at shift change. Patient exhibited the following behavior Restless, Agitated, Resistive. Brief assessment on rounds of vital signs, medication needs, lab studies, and pain. Treatment plan problems . Intervention: Patient assessed and the following interventions initiated safety checks 15 Minute Checks Cognitive Assessment , Head to toe Assessment , Medications. Response: After interactions and interventions patient responded in the following manner, Restless , Agitated ,Resistive. Continue to assess behaviors and condition will continue to monitor throughout the shift as needed. Plan: Continue to monitor Master Treatment Plan for patient's progress toward short term goals of Decreased Agitation, Decreased Anxiety, [facility] goals to return to previous living setting vs placement. Continue to assess patient for changes in above assessment. Monitor for medication needs, pain, and safety concerns. Hourly rounding performed to ensure safe environment.
[2017-03-12 15:46] LABS: BASO % 1 % (0-3); EOS # 0.1 x10^3/uL (0.0-0.7); EOS % 2 % (0-3); HEMOGLOBIN 12.3 g/dL (13.0-17.5); LYMPH # 0.9 x10^3/uL (1.0-4.8); LYMPH % 14 % (24-48); MEAN CORPUSCULAR HEMOGLOBIN 32 pg (25-35); MEAN CORPUSCULAR HGB CONC 34 g/dL (31-37); MEAN CORPUSCULAR VOLUME 94 fL (79-100); MONO # 0.6 x10^3/uL (0.0-1.1); MONO % 10 % (0-9); NEUT # 4.7 x10^3uL (1.8-7.7); NEUT % 75 % (31-73); PLATELET COUNT 220 x10^3/uL (140-400); RED BLOOD COUNT 3.82 x10^6/uL (4.30-5.70); RED CELL DISTRIBUTION WIDTH 13.6 % (11.5-14.5); WHITE BLOOD COUNT 6.3 x10^3/uL (4.0-11.0)
[2017-03-12 15:51] LABS: ALBUMIN 3.5 g/dL (3.4-5.0); ALBUMIN/GLOBULIN RATIO 1.1 (1.0-1.7); CALCIUM 9.1 mg/dL (8.5-10.1); CREATININE 1.1 mg/dL (0.7-1.3); GFR 63.5; POTASSIUM 3.4 mmol/L (3.5-5.1); TOTAL BILIRUBIN 0.5 mg/dL (0.2-1.0); TOTAL PROTEIN 6.8 g/dL (6.4-8.2)
--- NOTE | 2017-03-12 15:54 | NUR ---
pt up for meals. confused. pt told family that nobody will talk to him and staff keeps taking his walker away. pt irritable in afternoon and says he has been waiting for the dr for 15 days to get his shot for his liver. pt states if the dr doesn't come soon there are going to be several surgical manager here. pt has been med compliant. has been compliant with neb treatments today.
[2017-03-12 16:23] VITALS: BP 154/78
[2017-03-12] MEDS: risperiDONE 0.25 MG TABLET. PO SCH (19:34)
[2017-03-12] MEDS: DONEPEZIL HCL 5 MG TABLET. PO SCH (19:34)
[2017-03-12] MEDS: TAMSULOSIN 0.4 MG CAP.ER.24H. PO SCH (19:34)
[2017-03-12] MEDS: MELATONIN 3 MG TABLET PO SCH (19:35)
[2017-03-12] MEDS: POTASSIUM CHLORIDE 20 MEQ TABLET.ER. PO SCH (19:51)
[2017-03-12] MEDS ORDERED: MIRTAZAPINE 7.5 MG TABLET. PO SCH (21:00)
--- NOTE | 2017-03-12 22:23 | PDOC ---
Exam Earle Demential Exam: Earle Note: Please also refer to the separate dictated note~for this date of service dictated separately.~Patient seen individually. Discussed the patient with Nursing staff reviewed the chart.~Reviewed interim history and current functioning. Reviewed vital signs,~Labs/ Radiology~and current medications noted below. Continue current treatment with the changes noted in the dictated addendum note Assessment: Vital Signs: Vital Signs Date Time Temp Pulse Resp B/P Pulse Ox O2 Delivery O2 Flow Rate FiO2 03/12/17 20:05 98 Room Air 03/12/17 16:23 99.1 92 18 154/78 I&O Intake and Output 03/12/17 07:00 Intake Total 1160 ml Balance 1160 ml Intake Oral 1160 ml # Voids 2 Labs: Laboratory Tests Test 03/12/17 03:20 03/12/17 15:20 White Blood Count 6.3x10^3/uL (4.0-11.0) Red Blood Count 3.82x10^6/uL (4.30-5.70) L Hemoglobin 12.3g/dL (13.0-17.5) L Hematocrit 36.0% (39.0-53.0) L Mean Corpuscular Volume 94fL (79-100) Mean Corpuscular Hemoglobin 32pg (25-35) Mean Corpuscular Hemoglobin Concent 34g/dL (31-37) Red Cell Distribution Width 13.6% (11.5-14.5) Platelet Count 220x10^3/uL (140-400) Neutrophils (%) (Auto) 75% (31-73) H Lymphocytes (%) (Auto) 14% (24-48) L Monocytes (%) (Auto) 10% (0-9) H Eosinophils (%) (Auto) 2% (0-3) Basophils (%) (Auto) 1% (0-3) Neutrophils # (Auto) 4.7x10^3uL (1.8-7.7) Lymphocytes # (Auto) 0.9x10^3/uL (1.0-4.8) L Monocytes # (Auto) 0.6x10^3/uL (0.0-1.1) Eosinophils # (Auto) 0.1x10^3/uL (0.0-0.7) Basophils # (Auto) 0.0x10^3/uL (0.0-0.2) Sodium Level 139mmol/L (136-145) Potassium Level 3.4mmol/L (3.5-5.1) L Chloride Level 103mmol/L (98-107) Carbon Dioxide Level 30mmol/L (21-32) Anion Gap 6 (6-14) Blood Urea Nitrogen 42mg/dL (8-26) H Creatinine 1.1mg/dL (0.7-1.3) Estimated GFR (Cockcroft-Gault) 63.5 BUN/Creatinine Ratio 38 (6-20) H Glucose Level 116mg/dL (70-99) H Calcium Level 9.1mg/dL (8.5-10.1) Total Bilirubin 0.5mg/dL (0.2-1.0) Aspartate Amino Transferase (AST) 51U/L (15-37) H Alanine Aminotransferase (ALT) 58U/L (16-63) Alkaline Phosphatase 59U/L (46-116) Total Protein 6.8g/dL (6.4-8.2) Albumin 3.5g/dL (3.4-5.0) Albumin/Globulin Ratio 1.1 (1.0-1.7) Erythrocyte Sedimentation Rate 20 (0-15) H C-Reactive Protein 8.1mg/L (0-3.3) H Current Medications: Meds: Current Medications Lactated Ringer's (Iv Lactated Ringers) 1,000 ml @ 1,000 mls/hr Q1H IV Last administered on 03/07/17 18:12; Start 03/07/17 at 18:00; Stop 03/07/17 at 23:12 ; Status DC Diphenhydramine HCl (Benadryl) 50 mg 1X ONCE IVP Last administered on 18:14; Start 03/07/17 at 18:15; Stop 03/07/17 at 18:16; Status DC Lorazepam (Ativan) 2 mg 1X ONCE IV Last administered on 03/07/17 18:19; Start 03/07/17 at 18:15; Stop 03/07/17 at 18:16; Status DC Haloperidol Lactate (Haldol) 5 mg 1X ONCE IVP ; Start 03/07/17 at 18:15; Stop 03/07/17 at 23:16; Status DC Iohexol 75 ml 75 ml 1X ONCE IV Last administered on 03/07/17 19:08; Start at 19:15; Stop 03/07/17 at 19:16; Status DC Ceftriaxone Sodium/Sodium Chloride (Rocephin/Iv Sodium Chloride 0.9% 50ml) 50 ml @ 100 mls/hr 1X ONCE IV ; Start 03/07/17 at 20:30; Stop 03/07/17 at 20:59; Status Cancel Azithromycin 500 mg 500 mg 1X ONCE PO ; Start 03/07/17 at 20:30; Stop 03/07/17 at 20:31; Status Cancel Ceftriaxone Sodium/Sodium Chloride (Rocephin/Iv Sodium Chloride 0.9% 50ml) 50 ml @ 100 mls/hr 1X ONCE IV ; Start 03/07/17 at 21:00; Stop 03/07/17 at 23:12; Status DC Azithromycin (Zithromax) 500 mg 1X ONCE PO Last administered on 03/07/17 20: 51; Start 03/07/17 at 21:00; Stop 03/07/17 at 21:01; Status DC Azithromycin (Zithromax) 250 mg DAILY06 PO Last administered on 03/12/17 04:35 ; Start 03/08/17 at 06:00 Ceftriaxone Sodium (Rocephin Im) 1 gm DAILY IM Last administered on 03/12/17 07:51; Start 03/08/17 at 09:00 Albuterol/ Ipratropium 3 ml 3 ml RTQID NEB Last administered on 03/12/17 20:02 ; Start 03/07/17 at 21:00 Sodium Chloride (Iv Sodium Chloride 0.9% 50ml) 50 ml @ As Directed STK-MED ONCE .ROUTE ; Start 03/07/17 at 20:55; Stop 03/07/17 at 23:12; Status DC Ceftriaxone Sodium (Rocephin) 1 gm STK-MED ONCE IV ; Start 03/07/17 at 20:55; Stop 03/07/17 at 20:56; Status DC Donepezil HCl (Aricept) 5 mg QHS PO Last administered on 03/12/17 19:34; Start 03/08/17 at 21:00 Escitalopram Oxalate (Lexapro) 10 mg DAILY PO Last administered on 03/12/17 07 :50; Start 03/08/17 at 09:00 Quetiapine Fumarate (SEROquel) 25 mg QHS PO Last administered on 03/08/17 21: 09; Start 03/08/17 at 21:00; Stop 03/09/17 at 18:11; Status DC Risperidone (Risperdal) 0.25 mg BID PO Last administered on 03/10/17 09:10; Start 03/08/17 at 09:00; Stop 03/10/17 at 21:00; Status DC Non-Formulary Medication 1 each BID PO ; Start 03/08/17 at 09:00; Stop 03/08/17 at 09:00; Status DC Vitamin D (Vitamin D3) 2,000 unit DAILY PO ; Start 03/08/17 at 09:00; Stop 03/08 at 09:00; Status DC Cyanocobalamin (Vitamin B-12) 5,000 mcg DAILY PO ; Start 03/08/17 at 09:00; Stop 03/08/17 at 09:00; Status DC Cetirizine HCl (Zyrtec) 10 mg DAILY PO ; Start 03/08/17 at 09:00; Stop 03/08/17 at 09:00; Status DC Potassium Chloride (Klor-Con) 30 meq BIDWMEALS PO ; Start 03/08/17 at 08:00; Stop 03/08/17 at 08:00; Status DC Acetaminophen/ Codeine Phosphate (Tylenol #3) 1 tab PRN Q6HRS PRN PO PAIN; Start 03/08/17 at 08:45 Glucosamine/ Chondroitin (Glucosamine-Chondroitin 500/400mg) 1 cap BID PO Last administered on 03/12/17 19:34; Start 03/08/17 at 09:00 Hydrochlorothiazide (Hydrodiuril) 25 mg DAILY PO Last administered on 07:50; Start 03/08/17 at 09:00 Polyethylene Glycol (miraLAX) 17 gm DAILY PO Last administered on 03/12/17 07: 50; Start 03/08/17 at 09:00 Tamsulosin HCl (Flomax) 0.4 mg QHS PO Last administered on 03/12/17 19:34; Start 03/08/17 at 21:00 Multivitamins/ Minerals (Preservision) 1 cap BID PO Last administered on 19:52; Start 03/08/17 at 09:00 Olanzapine (Zyprexa Zydis) 2.5 mg PRN Q2HR PRN PO ANXIETY / AGITATION Last administered on 03/08/17 23:53; Start 03/08/17 at 12:30 Mirtazapine (Remeron) 7.5 mg QHS PO Last administered on 03/11/17 18:55; Start 03/08/17 at 21:00; Stop 03/12/17 at 19:38; Status DC Melatonin 3 mg QHS PO Last administered on 03/12/17 19:35; Start 03/08/17 at 21:00 Trazodone HCl (Desyrel) 50 mg PRN QHS PRN PO INSOMNIA, MAY REPEAT X1; Start at 18:15; Stop 03/10/17 at 11:35; Status DC Ondansetron HCl (Zofran Odt) 4 mg PRN Q4HRS PRN PO NAUSEA/VOMITING; Start 03/09 at 19:45 Risperidone (Risperdal) 0.25 mg HS PO Last administered on 03/12/17 19:34; Start 03/10/17 at 21:00 Mirtazapine (Remeron) 7.5 mg QHS PO ; Start 03/10/17 at 21:00; Stop 03/10/17 at 21:00; Status DC Melatonin 3 mg HS PO Last administered on 03/11/17 20:59; Start 03/11/17 at 21 :00; Stop 03/12/17 at 16:21; Status DC Potassium Chloride (Klor-Con) 20 meq BID PO Last administered on 03/12/17 19: 51; Start 03/12/17 at 21:00 Mirtazapine (Remeron) 15 mg QHS PO Last administered on 03/12/17 19:51; Start 03/12/17 at 21:00 Active Scripts Active Reported Claritin (Loratadine) 10 Mg Tablet 10 Mg PO DAILY Vitamin B12 (Cyanocobalamin (Vitamin B-12)) 5,000 Mcg Tab.rapdis 5,000 Mcg PO DAILY Vitamin D-3 (Cholecalciferol (Vitamin D3)) 2,000 Unit Tablet 2,000 Unit PO DAILY Glucosamine-Chondroitin Cap (Glucosamine/Chondroitin Sulf A) 1 Each Capsule 1, 500 Mg PO BID Lipo-Flavonoid Plus Caplet (Bioflav,Lemon/Vit Bcomp&C) 1 Each Tablet 1 Each PO BID Preservision Areds Softgel (Vit A/Vit C/Vit E/Zinc/Copper) 1 Each Capsule 1 Each PO BID Polyethylene Glycol 3350 17 Gm Powd.pack 17 Gm PO DAILY Tylenol With Codeine #3 Tablet (Acetaminophen With Codeine) 1 Each Tablet 1 Tab PO PRN Q6HRS PRN Quetiapine Fumarate 25 Mg Tablet 25 Mg PO QHS Donepezil Hcl 5 Mg Tablet 5 Mg PO QHS Risperdal (Risperidone) 0.25 Mg Tablet 0.25 Mg PO BID Escitalopram Oxalate 10 Mg Tablet 10 Mg PO DAILY Tamsulosin Hcl 0.4 Mg Cap.er.24h 0.4 Mg PO QHS Potassium Chloride 20 Meq Tablet.er 30 Meq PO BID Hydrochlorothiazide Tablet (Hydrochlorothiazide) 25 Mg Tablet 25 Mg PO DAILY Diagnosis: Problems: (1) Anxiety disorder (2) Dementia in Alzheimer's disease with delusions (3) Dementia in Alzheimer's disease with depression (4) Dementia, vascular, with delusions (5) Dementia, vascular, with depression (6) Impulse control disorder RASHMI NEGRON MD Mar 12, 2017 22:23
--- NOTE | 2017-03-12 22:46 | NUR ---
Behavior Intervention Response and Plan: BIRP Note: Behavior: Assumed Care of patient, patient located in Patient Room at shift change. Patient exhibited the following behavior Irritable, Compliant, Cooperative. Brief assessment on rounds of vital signs, medication needs, lab studies, and pain. Treatment plan problems Dementia with BD and Fall Risk. Intervention: Patient assessed and the following interventions initiated safety checks 15 Minute Checks Cognitive Assessment , Head to toe Assessment , Medications. Response: After interactions and interventions patient responded in the following manner, Wandering , Irritable ,Compliant. Continue to assess behaviors and condition will continue to monitor throughout the shift as needed. Plan: Continue to monitor Master Treatment Plan for patient's progress toward short term goals of Medication Compliance, Decreased Aggression, care home goals to return to previous living setting vs placement. Continue to assess patient for changes in above assessment. Monitor for medication needs, pain, and safety concerns. Hourly rounding performed to ensure safe environment.
--- NOTE | 2017-03-13 03:56 | NUR ---
Nursing Note: Pt in bed, very restless and anxious believing his is coming to visit and he needs to get up, multiple attempts to redirect made, Pt continues to have increased agitation with attempts to redirect, PRN Zydis administered per PRN order at this time
[2017-03-13] MEDS: IPRATRPIUM/ALBUTEROL 0.5/2.5MG 3 ML NEBU. NEB SCH ×4 (04:58→19:58)
[2017-03-13] MEDS: AZITHROMYCIN 250 MG TABLET. PO SCH (05:40)
[2017-03-13 06:05] VITALS: BP 162/84
[2017-03-13] MEDS: hydroCHLOROthiazide 25 MG TABLET PO SCH (07:17)
[2017-03-13] MEDS: MULTIVITAMIN PRESERVISION CAPSULE. PO SCH ×2 (07:17→19:32)
[2017-03-13] MEDS: ESCITALOPRAM 10 MG TABLET. PO SCH (07:17)
[2017-03-13] MEDS: POLYETHYLENE GLYCOL 3350 17 GM PACKET. PO SCH (07:17)
[2017-03-13] MEDS: POTASSIUM CHLORIDE 20 MEQ TABLET.ER. PO SCH ×2 (07:17→19:30)
[2017-03-13] MEDS: GLUCOSAMINE/CHOND 500/400MG CAPSULE PO SCH ×2 (07:17→19:29)
[2017-03-13] MEDS: cefTRIAXone IM 1 GM VIAL IM SCH (07:19)
--- NOTE | 2017-03-13 10:24 | NUR ---
Behavior Intervention Response and Plan: BIRP Note: Behavior: Assumed Care of patient, patient located in Day Room at shift change. Patient exhibited the following behavior Restless, Agitated, Resistive. Brief assessment on rounds of vital signs, medication needs, lab studies, and pain. Treatment plan problems . Intervention: Patient assessed and the following interventions initiated safety checks 15 Minute Checks Cognitive Assessment , Head to toe Assessment , Medications. Response: After interactions and interventions patient responded in the following manner, Restless , Agitated ,Resistive. Continue to assess behaviors and condition will continue to monitor throughout the shift as needed. Plan: Continue to monitor Master Treatment Plan for patient's progress toward short term goals of Decreased Agitation, Decreased Anxiety, group home goals to return to previous living setting vs placement. Continue to assess patient for changes in above assessment. Monitor for medication needs, pain, and safety concerns. Hourly rounding performed to ensure safe environment.
--- NOTE | 2017-03-13 17:08 | NUR ---
pt up for breakfast. drowsy as pt did not sleep well the previous noc. dozed on and off in day room. family here at noon. had numerous concerns regarding pt condition. family stated his pcp Dr Lopez told them pt was back peddling and should not be discharged before he had 2 consecutive nights of good sleep. re educated family on our discharge criteria that including a good sleep. dtr wants to speak with when available. gene ng applied as pt noted to have edema to BLE. family still concerned pt is being isolated. informed pt was in day room most of am but was to drowsy to talk. has made several laps in halls with walker. laid down for nap in afternoon. c/o r hip pain. Tyl #3 given. refused to get up for supper. stated he wasn't going to get up because staff wasn't doing anything for him anyway. "I haven't eaten all day." Staff to offer boost for supper.
[2017-03-13 17:39] VITALS: BP 169/89
[2017-03-13] MEDS: TAMSULOSIN 0.4 MG CAP.ER.24H. PO SCH (19:30)
[2017-03-13] MEDS: MELATONIN 3 MG TABLET PO SCH (19:30)
[2017-03-13] MEDS: DONEPEZIL HCL 5 MG TABLET. PO SCH (19:30)
[2017-03-13] MEDS: QUEtiapine 25 MG TABLET. PO SCH (19:32)
[2017-03-13] MEDS: busPIRone 5 MG TABLET. PO SCH (19:32)
[2017-03-13] MEDS: MIRTAZAPINE 15 MG TABLET PO SCH (19:32)
[2017-03-13] MEDS ORDERED: MELATONIN 3 MG TABLET PO SCH (21:00)
[2017-03-13] MEDS: ACETAMINOPHEN/CODEINE 300/30MG TABLET PO SCH (21:00)
--- NOTE | 2017-03-14 00:18 | NUR ---
Behavior Intervention Response and Plan: BIRP Note: Behavior: Assumed Care of patient, patient located in Patient Room at shift change. Patient exhibited the following behavior Irritable, Compliant, Cooperative. Brief assessment on rounds of vital signs, medication needs, lab studies, and pain. Treatment plan problems Dementia with BD and Fall Risk. Intervention: Patient assessed and the following interventions initiated safety checks 15 Minute Checks Cognitive Assessment , Head to toe Assessment , Medications. Response: After interactions and interventions patient responded in the following manner, Wandering , Irritable ,Compliant. Continue to assess behaviors and condition will continue to monitor throughout the shift as needed. Plan: Continue to monitor Master Treatment Plan for patient's progress toward short term goals of Medication Compliance, Decreased Aggression, retirement goals to return to previous living setting vs placement. Continue to assess patient for changes in above assessment. Monitor for medication needs, pain, and safety concerns. Hourly rounding performed to ensure safe environment.
--- NOTE | 2017-03-14 04:45 | PN ---
DATE: 03/12/2017 PSYCHIATRIC PROGRESS NOTE This is a late entry of 03/12/2017 covers elements not covered in my initial note. SUBJECTIVE: The patient had a difficult day. He was found on the floor on his left side, no injuries noted, complains of vague pain. We will defer to Dr. Leon from medical standpoint. Per nursing report, he remains delusional. He tells his family that no one talks to him. Staff were making an added extra effort to spend time with him. He is threatening staff at times, believes he has been here for 15 days. REVIEW OF SYSTEMS: Ambulation impaired with a walker. No CV, , pulmonary, eye system symptoms on review. MENTAL STATUS EXAM: Oriented to himself. Insight, judgment, recent memory is impaired. Language function intact. Attention span short. Mood and affect somewhat withdrawn, irritable and labile at times. LABORATORY DATA: Reviewed. IMPRESSION: Unchanged from initial note. PLAN: Increase Remeron to 15 mg at bedtime. Continue rest unchanged, avoid trazodone per family request, may need to adjust Risperdal for his delusions, but we will see first how he does with improved sleep. RASHMI NEGRON MD DR: MARIA T/kofi JOB#: [id number] / [id number]
[2017-03-14] MEDS: IPRATRPIUM/ALBUTEROL 0.5/2.5MG 3 ML NEBU. NEB SCH ×2 (05:23→11:32)
[2017-03-14] MEDS: AZITHROMYCIN 250 MG TABLET. PO SCH (05:42)
[2017-03-14 06:04] VITALS: BP 137/69
[2017-03-14] MEDS: hydroCHLOROthiazide 25 MG TABLET PO SCH (09:33)
[2017-03-14] MEDS: GLUCOSAMINE/CHOND 500/400MG CAPSULE PO SCH ×2 (09:33→20:22)
[2017-03-14] MEDS: POTASSIUM CHLORIDE 20 MEQ TABLET.ER. PO SCH ×2 (09:33→20:23)
[2017-03-14] MEDS: busPIRone 5 MG TABLET. PO SCH ×2 (09:34→20:22)
[2017-03-14] MEDS: ESCITALOPRAM 10 MG TABLET. PO SCH (09:34)
[2017-03-14] MEDS: MULTIVITAMIN PRESERVISION CAPSULE. PO SCH ×2 (09:36→21:00)
[2017-03-14] MEDS: POLYETHYLENE GLYCOL 3350 17 GM PACKET. PO SCH (09:36)
[2017-03-14] MEDS: cefTRIAXone IM 1 GM VIAL IM SCH (09:45)
[2017-03-14] MEDS ORDERED: IPRATRPIUM/ALBUTEROL 0.5/2.5MG 3 ML NEBU. NEB PRN (12:30)
--- NOTE | 2017-03-14 13:55 | PN ---
DATE: 03/11/2017 This is a late entry for 03/11/2017 covers elements not covered in my initial note. SUBJECTIVE: The patient is unsteady in gait. Yelling and agitated at times, slept 4-1/2 hours, compliant with his medications, not sleeping well. Family states trazodone caused leg swelling, and they are using Remeron for the insomnia and anxiety. REVIEW OF SYSTEMS: Ambulation impaired, hard of hearing. No CV, , pulmonary, eye system symptoms on review. MENTAL STATUS EXAM: Oriented to himself. Insight, judgment, recent and remote memory, attention, concentration, fund of knowledge poor, consistent with his diagnosis mentioned in my initial note. PLAN: Continue Risperdal 0.25 at bedtime, Aricept 5 mg a day, Lexapro 10, Remeron 7.5. We will start melatonin 3 mg at bedtime, may need to increase Remeron if needed. MAN Luiz NEGRON MD DR: MARIA T/kofi JOB#: [id number] / [id number]
--- NOTE | 2017-03-14 14:00 | NUR ---
Behavior Intervention Response and Plan: BIRP Note: Behavior: Assumed Care of patient, patient located in Patient Room at shift change. Patient exhibited the following behavior Calm, Disorganized, Compliant. Brief assessment on rounds of vital signs, medication needs, lab studies, and pain. Treatment plan problems . Intervention: Patient assessed and the following interventions initiated safety checks 15 Minute Checks Call black in reach , Medications , Personal Alarm in place. Response: After interactions and interventions patient responded in the following manner, Calm , Disorganized ,Compliant. Continue to assess behaviors and condition will continue to monitor throughout the shift as needed. 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 Continue to assess patient for changes in above assessment. Monitor for medication needs, pain, and safety concerns. Hourly rounding performed to ensure safe environment.
[2017-03-14 15:44] VITALS: BP 130/72
[2017-03-14] MEDS: MELATONIN 3 MG TABLET PO SCH (20:21)
[2017-03-14] MEDS: DONEPEZIL HCL 5 MG TABLET. PO SCH (20:22)
[2017-03-14] MEDS: TAMSULOSIN 0.4 MG CAP.ER.24H. PO SCH (20:22)
[2017-03-14] MEDS: ACETAMINOPHEN/CODEINE 300/30MG TABLET PO SCH (20:23)
[2017-03-14] MEDS: QUEtiapine 25 MG TABLET. PO SCH (20:23)
[2017-03-14] MEDS: MIRTAZAPINE 15 MG TABLET PO SCH (20:23)
--- NOTE | 2017-03-14 20:38 | PDOC ---
Exam Earle Demential Exam: Earle Note: Please also refer to the separate dictated note~for this date of service dictated separately.~Patient seen individually. Discussed the patient with Nursing staff reviewed the chart.~Reviewed interim history and current functioning. Reviewed vital signs,~Labs/ Radiology~and current medications noted below. Continue current treatment with the changes noted in the dictated addendum note Assessment: Vital Signs: Vital Signs Date Time Temp Pulse Resp B/P Pulse Ox O2 Delivery O2 Flow Rate FiO2 03/14/17 20:23 20 96 03/14/17 15:44 98.5 72 130/72 03/14/17 11:32 Room Air I&O Intake and Output 03/14/17 07:00 Intake Total 1210 ml Balance 1210 ml Intake Oral 1210 ml Labs: Laboratory Tests Test 03/14/17 06:46 Uric Acid 4.4mg/dL (3.5-7.2) Current Medications: Meds: Current Medications Lactated Ringer's (Iv Lactated Ringers) 1,000 ml @ 1,000 mls/hr Q1H IV Last administered on 03/07/17 18:12; Start 03/07/17 at 18:00; Stop 03/07/17 at 23:12 ; Status DC Diphenhydramine HCl (Benadryl) 50 mg 1X ONCE IVP Last administered on 18:14; Start 03/07/17 at 18:15; Stop 03/07/17 at 18:16; Status DC Lorazepam (Ativan) 2 mg 1X ONCE IV Last administered on 03/07/17 18:19; Start 03/07/17 at 18:15; Stop 03/07/17 at 18:16; Status DC Haloperidol Lactate (Haldol) 5 mg 1X ONCE IVP ; Start 03/07/17 at 18:15; Stop 03/07/17 at 23:16; Status DC Iohexol 75 ml 75 ml 1X ONCE IV Last administered on 03/07/17 19:08; Start at 19:15; Stop 03/07/17 at 19:16; Status DC Ceftriaxone Sodium/Sodium Chloride (Rocephin/Iv Sodium Chloride 0.9% 50ml) 50 ml @ 100 mls/hr 1X ONCE IV ; Start 03/07/17 at 20:30; Stop 03/07/17 at 20:59; Status Cancel Azithromycin 500 mg 500 mg 1X ONCE PO ; Start 03/07/17 at 20:30; Stop 03/07/17 at 20:31; Status Cancel Ceftriaxone Sodium/Sodium Chloride (Rocephin/Iv Sodium Chloride 0.9% 50ml) 50 ml @ 100 mls/hr 1X ONCE IV ; Start 03/07/17 at 21:00; Stop 03/07/17 at 23:12; Status DC Azithromycin (Zithromax) 500 mg 1X ONCE PO Last administered on 03/07/17 20: 51; Start 03/07/17 at 21:00; Stop 03/07/17 at 21:01; Status DC Azithromycin (Zithromax) 250 mg DAILY06 PO Last administered on 03/14/17 05:42 ; Start 03/08/17 at 06:00 Ceftriaxone Sodium (Rocephin Im) 1 gm DAILY IM Last administered on 03/14/17 09 :45; Start 03/08/17 at 09:00 Albuterol/ Ipratropium 3 ml 3 ml RTQID NEB Last administered on 03/14/17 11:32 ; Start 03/07/17 at 21:00; Stop 03/14/17 at 12:15; Status DC Sodium Chloride (Iv Sodium Chloride 0.9% 50ml) 50 ml @ As Directed STK-MED ONCE .ROUTE ; Start 03/07/17 at 20:55; Stop 03/07/17 at 23:12; Status DC Ceftriaxone Sodium (Rocephin) 1 gm STK-MED ONCE IV ; Start 03/07/17 at 20:55; Stop 03/07/17 at 20:56; Status DC Donepezil HCl (Aricept) 5 mg QHS PO Last administered on 03/14/17 20:22; Start 03/08/17 at 21:00 Escitalopram Oxalate (Lexapro) 10 mg DAILY PO Last administered on 03/14/17 09: 34; Start 03/08/17 at 09:00 Quetiapine Fumarate (SEROquel) 25 mg QHS PO Last administered on 03/08/17 21: 09; Start 03/08/17 at 21:00; Stop 03/09/17 at 18:11; Status DC Risperidone (Risperdal) 0.25 mg BID PO Last administered on 03/10/17 09:10; Start 03/08/17 at 09:00; Stop 03/10/17 at 21:00; Status DC Non-Formulary Medication 1 each BID PO ; Start 03/08/17 at 09:00; Stop 03/08/17 at 09:00; Status DC Vitamin D (Vitamin D3) 2,000 unit DAILY PO ; Start 03/08/17 at 09:00; Stop 03/08 at 09:00; Status DC Cyanocobalamin (Vitamin B-12) 5,000 mcg DAILY PO ; Start 03/08/17 at 09:00; Stop 03/08/17 at 09:00; Status DC Cetirizine HCl (Zyrtec) 10 mg DAILY PO ; Start 03/08/17 at 09:00; Stop 03/08/17 at 09:00; Status DC Potassium Chloride (Klor-Con) 30 meq BIDWMEALS PO ; Start 03/08/17 at 08:00; Stop 03/08/17 at 08:00; Status DC Acetaminophen/ Codeine Phosphate (Tylenol #3) 1 tab PRN Q6HRS PRN PO PAIN Last administered on 03/13/17 15:00; Start 03/08/17 at 08:45 Glucosamine/ Chondroitin (Glucosamine-Chondroitin 500/400mg) 1 cap BID PO Last administered on 03/14/17 20:22; Start 03/08/17 at 09:00 Hydrochlorothiazide (Hydrodiuril) 25 mg DAILY PO Last administered on 03/14/17 09:33; Start 03/08/17 at 09:00 Polyethylene Glycol (miraLAX) 17 gm DAILY PO Last administered on 03/14/17 09: 36; Start 03/08/17 at 09:00 Tamsulosin HCl (Flomax) 0.4 mg QHS PO Last administered on 03/14/17 20:22; Start 03/08/17 at 21:00 Multivitamins/ Minerals (Preservision) 1 cap BID PO Last administered on 09:36; Start 03/08/17 at 09:00 Olanzapine (Zyprexa Zydis) 2.5 mg PRN Q2HR PRN PO ANXIETY / AGITATION Last administered on 03/13/17 03:56; Start 03/08/17 at 12:30 Mirtazapine (Remeron) 7.5 mg QHS PO Last administered on 03/11/17 18:55; Start 03/08/17 at 21:00; Stop 03/12/17 at 19:38; Status DC Melatonin 3 mg QHS PO Last administered on 03/12/17 19:35; Start 03/08/17 at 21:00; Stop 03/13/17 at 18:49; Status DC Trazodone HCl (Desyrel) 50 mg PRN QHS PRN PO INSOMNIA, MARCH REPEAT X1; Start at 18:15; Stop 03/10/17 at 11:35; Status DC Ondansetron HCl (Zofran Odt) 4 mg PRN Q4HRS PRN PO NAUSEA/VOMITING; Start 03/09 at 19:45 Risperidone (Risperdal) 0.25 mg HS PO Last administered on 03/12/17 19:34; Start 03/10/17 at 21:00; Stop 03/13/17 at 18:49; Status DC Mirtazapine (Remeron) 7.5 mg QHS PO ; Start 03/10/17 at 21:00; Stop 03/10/17 at 21:00; Status DC Melatonin 3 mg HS PO Last administered on 03/11/17 20:59; Start 03/11/17 at 21 :00; Stop 03/12/17 at 16:21; Status DC Potassium Chloride (Klor-Con) 20 meq BID PO Last administered on 03/14/17 20:23 ; Start 03/12/17 at 21:00 Mirtazapine (Remeron) 15 mg QHS PO Last administered on 03/12/17 19:51; Start 03/12/17 at 21:00; Stop 03/13/17 at 03:33; Status DC Mirtazapine (Remeron) 15 mg QHS PO Last administered on 03/14/17 20:23; Start 03/13/17 at 21:00 Acetaminophen/ Codeine Phosphate (Tylenol #3) 1 tab HS PO Last administered on 03/14/17 20:23; Start 03/13/17 at 21:00 Melatonin 4.5 mg QHS PO ; Start 03/13/17 at 21:00; Stop 03/13/17 at 21:00; Status DC Buspirone HCl (Buspar) 5 mg BID PO Last administered on 03/14/17 20:22; Start 03/13/17 at 21:00 Quetiapine Fumarate (SEROquel) 25 mg HS PO Last administered on 03/14/17 20:23 ; Start 03/13/17 at 21:00 Melatonin 6 mg QHS PO Last administered on 03/14/17 20:21; Start 03/13/17 at 21 :00 Albuterol/ Ipratropium (Duoneb) 3 ml RTQID PRN NEB WHEEZING; Start 03/14/17 at 12:30 Active Scripts Active Reported Claritin (Loratadine) 10 Mg Tablet 10 Mg PO DAILY Vitamin B12 (Cyanocobalamin (Vitamin B-12)) 5,000 Mcg Tab.rapdis 5,000 Mcg PO DAILY Vitamin D-3 (Cholecalciferol (Vitamin D3)) 2,000 Unit Tablet 2,000 Unit PO DAILY Glucosamine-Chondroitin Cap (Glucosamine/Chondroitin Sulf A) 1 Each Capsule 1, 500 Mg PO BID Lipo-Flavonoid Plus Caplet (Bioflav,Lemon/Vit Bcomp&C) 1 Each Tablet 1 Each PO BID Preservision Areds Softgel (Vit A/Vit C/Vit E/Zinc/Copper) 1 Each Capsule 1 Each PO BID Polyethylene Glycol 3350 17 Gm Powd.pack 17 Gm PO DAILY Tylenol With Codeine #3 Tablet (Acetaminophen With Codeine) 1 Each Tablet 1 Tab PO PRN Q6HRS PRN Quetiapine Fumarate 25 Mg Tablet 25 Mg PO QHS Donepezil Hcl 5 Mg Tablet 5 Mg PO QHS Risperdal (Risperidone) 0.25 Mg Tablet 0.25 Mg PO BID Escitalopram Oxalate 10 Mg Tablet 10 Mg PO DAILY Tamsulosin Hcl 0.4 Mg Cap.er.24h 0.4 Mg PO QHS Potassium Chloride 20 Meq Tablet.er 30 Meq PO BID Hydrochlorothiazide Tablet (Hydrochlorothiazide) 25 Mg Tablet 25 Mg PO DAILY Diagnosis: Problems: (1) Anxiety disorder (2) Dementia in Alzheimer's disease with delusions (3) Dementia in Alzheimer's disease with depression (4) Dementia, vascular, with delusions (5) Dementia, vascular, with depression (6) Impulse control disorder RASHMI NEGRON MD March 14, 2017 20:38
--- NOTE | 2017-03-14 22:22 | NUR ---
Behavior Intervention Response and Plan: BIRP Note: Behavior: Assumed Care of patient, patient located in Patient Room at shift change. Patient exhibited the following behavior Sleeping. Brief assessment on rounds of vital signs, medication needs, lab studies, and pain. Treatment plan problems Dementia with BD and Fall Risk. Intervention: Patient assessed and the following interventions initiated safety checks 15 Minute Checks Cognitive Assessment , Head to toe Assessment , Medications. Response: After interactions and interventions patient responded in the following manner, Pleasant, Disorganized, Compliant. Continue to assess behaviors and condition will continue to monitor throughout the shift as needed. 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 Continue to assess patient for changes in above assessment. Monitor for medication needs, pain, and safety concerns. Hourly rounding performed to ensure safe environment.
--- NOTE | 2017-03-15 02:07 | PN ---
DATE: 03/13/2017 PSYCHIATRIC PROGRESS NOTE This is late entry of 03/13/2017. SUBJECTIVE: Per nursing report, the patient remains somewhat withdrawn, paranoid, suspicious, refused his supper and then tells his family that he has not had anything to eat. I returned a telephone call from Marta Gamez, , the patient's daughter and had a lengthy conversation with her twice on the telephone the evening of 03/13/2017. Marta had many questions on her father's diagnosis, medication changes, indicated that Dr. Donohue, the patient's primary care physician had insisted he not be discharged until he had at least 2 nights of good sleep. I reassured the daughter, we would make every effort to help with this, discussed many changes in his psychotropics we have been making. Daughter feels very strongly patient did better on Seroquel in the past. I did explain Risperdal is a somewhat more potent antipsychotic and given his extent of paranoia, suspiciousness is the reason we started the Risperdal, stopped the Seroquel, but if he responded very well to Seroquel in the past, we are going to go ahead and change it back to Seroquel 25 mg at bedtime. REVIEW OF SYSTEMS: Hard of hearing, impaired ambulation with a walker. No CV, , pulmonary, eye system symptoms on review. MENTAL STATUS EXAMINATION: Oriented to himself, paranoid, suspicious, anxious. Insight, judgment, recent memory is impaired. Language function is intact. Mood and affect somewhat depressed. LABORATORY DATA: Reviewed. IMPRESSION: Major neurocognitive disorder, Alzheimer, vascular with depression, delusions. Rest unchanged. PLAN: Change Risperdal 0.25 mg at bedtime to Seroquel 25 mg at bedtime, increase melatonin from 3 to 6 mg at bedtime, continue Remeron 15 mg at bedtime, Lexapro 10 mg a day, Aricept 5 mg a day. Adjust further as clinically indicated. MAN Luiz NEGRON MD DR: MARIA T/kofi JOB#: [id number] / [id number]
[2017-03-15] MEDS: AZITHROMYCIN 250 MG TABLET. PO SCH (05:29)
[2017-03-15 06:26] VITALS: BP 159/64
--- NOTE | 2017-03-15 08:34 | NUR ---
DAREN contacted [facility] [place] [facility] for placement at [phone] ext [phone]. Mar[facility] is still waiting for final approval from supervisors. Once the contract is approved, Mar[facility]u will have [place] nursing contact this facility's nursing for medical updates and then will send admit referral to [facility]. If [facility] is unable to accept Pt, the contract approval can be sent elsewhere w/o waiting for new approval. Marilu will contact this once the approval is granted. DAREN left message for [facility] dtr, regarding updates.
[2017-03-15] MEDS: POTASSIUM CHLORIDE 20 MEQ TABLET.ER. PO SCH ×2 (09:00→19:30)
[2017-03-15] MEDS: cefTRIAXone IM 1 GM VIAL IM SCH (09:00)
[2017-03-15] MEDS: POLYETHYLENE GLYCOL 3350 17 GM PACKET. PO SCH (10:01)
[2017-03-15] MEDS: GLUCOSAMINE/CHOND 500/400MG CAPSULE PO SCH ×2 (10:01→19:29)
[2017-03-15] MEDS: hydroCHLOROthiazide 25 MG TABLET PO SCH (10:01)
[2017-03-15] MEDS: ESCITALOPRAM 10 MG TABLET. PO SCH (10:01)
[2017-03-15] MEDS: MULTIVITAMIN PRESERVISION CAPSULE. PO SCH ×2 (10:02→19:32)
[2017-03-15] MEDS: busPIRone 5 MG TABLET. PO SCH ×2 (10:02→19:29)
--- NOTE | 2017-03-15 12:25 | ACF ---
Admission Criteria Forms MENTAL STATUS CHANGE Clinical Indications for Inpatient Care (Place 'X' for any and all applicable criteria): Ongoing inpatient care may be needed for 1 or more of the following(1)(2)(3)(5)( 6): [ ]I. 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 Danger to self or others not manageable at lower level of care [ ]III. Grave disability (eg, inability to perform self care necessary at lower level of care) [X]IV. Agitation or inappropriate behavior interfering with care for primary condition (eg, attempting to discontinue lines or drains prematurely, unable to cooperate with respiratory care) [ ]V. Delirium [A] [D][E] as described by 1 or more of the following(26): [ ]a) Delirium due to alcohol or sedative [F] withdrawal [ ]b) Delirium of uncertain etiology that has not responded to appropriate empiric treatment [ ]c) Delirium that prevents performance of a life-sustaining function (eg, feeding or hydrating oneself) [ ]. General contraindications and/or Inappropriate clinical situations for Observational Care in patients with Mental Status Change, when ANY ONE of the following is required: [ ]a) Prediction of prolongation of LOS based on ANY ONE of the following may be considered as a contraindication for observational care 2, 3, 4, 5, 6, 7, 8, 9, 10, 11 [ ]i) Age > 65 yrs. [ ]ii) Patient arriving by ambulance [ ]iii) Patient with high acuity [ ]iv) Patient requiring vital sign monitoring [ ]v) Patient on IV medication [ ]b) Systolic blood pressures greater than or equal to 180mmHg 3, 12 [ ]c) Patient with altered mental status including delirium and other alteration of consciousness, (3) [ ]d) Patient whose discharge disposition will be to a shelter home or rehabilitation home should not be managed in Emergency Department Observation Unit. CMS rule requires 3 days hospital stay before such placement.3,13 [ ]e) Patient with failure to thrive due to broad array of etiologies 3,16,17 [ ]f) Inability to ambulate 3,14 Extended stay beyond goal length of stay for the primary condition may be needed until ALL of the following are present(3)(5): [ ]a) Underlying medical etiology of mental status change is absent, or has been established and adequately treated [ ]b) Danger to self or others is absent or manageable at lower level of care. [ ]c) Behavior crisis management, including physical or chemical restraints, is not required or available at lower level of car [ ]d) Substance or alcohol withdrawal is absent or manageable at lower level of care. [ ]e) Behavioral symptoms (eg, agitation, somnolence, inappropriate behavior) are absent, or are manageable at lower level of care. The original [facility] [employer] content created by [facility] has been revised. The portions of the content which have been revised are identified through the use of italic text or in bold, and [facility] has neither reviewed nor approved the modified material. All other unmodified content is copyright [facility]. Please see references footnoted in the original [facility] edition 2016 Admission Criteria Met?: Yes TAMARA MA March 15, 2017 12:25
--- NOTE | 2017-03-15 14:00 | NUR ---
Behavior Intervention Response and Plan: BIRP Note: Behavior: Assumed Care of patient, patient located in Patient Room at shift change. Patient exhibited the following behavior Calm, Interactive, Compliant. Brief assessment on rounds of vital signs, medication needs, lab studies, and pain. Treatment plan problems . Intervention: Patient assessed and the following interventions initiated safety checks 15 Minute Checks Call black in reach , Medications , Personal Alarm in place. Response: After interactions and interventions patient responded in the following manner, Calm , Disorganized ,Compliant. Continue to assess behaviors and condition will continue to monitor throughout the shift as needed. 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 Continue to assess patient for changes in above assessment. Monitor for medication needs, pain, and safety concerns. Hourly rounding performed to ensure safe environment.
[2017-03-15 15:55] VITALS: BP 124/57
[2017-03-15] MEDS: TAMSULOSIN 0.4 MG CAP.ER.24H. PO SCH (19:29)
[2017-03-15] MEDS: DONEPEZIL HCL 5 MG TABLET. PO SCH (19:29)
[2017-03-15] MEDS: MELATONIN 3 MG TABLET PO SCH (19:29)
[2017-03-15] MEDS: MIRTAZAPINE 15 MG TABLET PO SCH (19:30)
[2017-03-15] MEDS: QUEtiapine 25 MG TABLET. PO SCH (19:30)
[2017-03-15] MEDS: ACETAMINOPHEN/CODEINE 300/30MG TABLET PO SCH (19:33)
--- NOTE | 2017-03-15 20:27 | NUR ---
Behavior Intervention Response and Plan: BIRP Note: Behavior: Assumed Care of patient, patient located in Patient Room at shift change. Patient exhibited the following behavior Calm, Able to Focus on Task, Withdrawn. Brief assessment on rounds of vital signs, medication needs, lab studies, and pain. Treatment plan problems . Intervention: Patient assessed and the following interventions initiated safety checks 15 Minute Checks Cognitive Assessment , Head to toe Assessment , Medications. Response: After interactions and interventions patient responded in the following manner, Appropriate , Compliant ,Cooperative. Continue to assess behaviors and condition will continue to monitor throughout the shift as needed. 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 Continue to assess patient for changes in above assessment. Monitor for medication needs, pain, and safety concerns. Hourly rounding performed to ensure safe environment.
--- NOTE | 2017-03-15 21:13 | PDOC ---
Exam Earle Demential Exam: Earle Note: Please also refer to the separate dictated note~for this date of service dictated separately.~Patient seen individually. Discussed the patient with Nursing staff reviewed the chart.~Reviewed interim history and current functioning. Reviewed vital signs,~Labs/ Radiology~and current medications noted below. Continue current treatment with the changes noted in the dictated addendum note Assessment: Vital Signs: Vital Signs Date Time Temp Pulse Resp B/P Pulse Ox O2 Delivery O2 Flow Rate FiO2 03/15/17 19:33 100 Room Air 03/15/17 15:55 98.3 71 18 124/57 I&O Intake and Output 03/15/17 07:00 Intake Total 1080 ml Balance 1080 ml Intake Oral 1080 ml # Voids 1 Current Medications: Meds: Current Medications Lactated Ringer's (Iv Lactated Ringers) 1,000 ml @ 1,000 mls/hr Q1H IV Last administered on 03/07/17 18:12; Start 03/07/17 at 18:00; Stop 03/07/17 at 23:12 ; Status DC Diphenhydramine HCl (Benadryl) 50 mg 1X ONCE IVP Last administered on 18:14; Start 03/07/17 at 18:15; Stop 03/07/17 at 18:16; Status DC Lorazepam (Ativan) 2 mg 1X ONCE IV Last administered on 03/07/17 18:19; Start 03/07/17 at 18:15; Stop 03/07/17 at 18:16; Status DC Haloperidol Lactate (Haldol) 5 mg 1X ONCE IVP ; Start 03/07/17 at 18:15; Stop 03/07/17 at 23:16; Status DC Iohexol 75 ml 75 ml 1X ONCE IV Last administered on 03/07/17 19:08; Start at 19:15; Stop 03/07/17 at 19:16; Status DC Ceftriaxone Sodium/Sodium Chloride (Rocephin/Iv Sodium Chloride 0.9% 50ml) 50 ml @ 100 mls/hr 1X ONCE IV ; Start 03/07/17 at 20:30; Stop 03/07/17 at 20:59; Status Cancel Azithromycin 500 mg 500 mg 1X ONCE PO ; Start 03/07/17 at 20:30; Stop 03/07/17 at 20:31; Status Cancel Ceftriaxone Sodium/Sodium Chloride (Rocephin/Iv Sodium Chloride 0.9% 50ml) 50 ml @ 100 mls/hr 1X ONCE IV ; Start 03/07/17 at 21:00; Stop 03/07/17 at 23:12; Status DC Azithromycin (Zithromax) 500 mg 1X ONCE PO Last administered on 03/07/17 20: 51; Start 03/07/17 at 21:00; Stop 03/07/17 at 21:01; Status DC Azithromycin (Zithromax) 250 mg DAILY06 PO Last administered on 03/15/17 05:29 ; Start 03/08/17 at 06:00; Stop 03/15/17 at 09:25; Status DC Ceftriaxone Sodium (Rocephin Im) 1 gm DAILY IM Last administered on 03/14/17 09 :45; Start 03/08/17 at 09:00; Stop 03/15/17 at 09:25; Status DC Albuterol/ Ipratropium 3 ml 3 ml RTQID NEB Last administered on 03/14/17 11:32 ; Start 03/07/17 at 21:00; Stop 03/14/17 at 12:15; Status DC Sodium Chloride (Iv Sodium Chloride 0.9% 50ml) 50 ml @ As Directed STK-MED ONCE .ROUTE ; Start 03/07/17 at 20:55; Stop 03/07/17 at 23:12; Status DC Ceftriaxone Sodium (Rocephin) 1 gm STK-MED ONCE IV ; Start 03/07/17 at 20:55; Stop 03/07/17 at 20:56; Status DC Donepezil HCl (Aricept) 5 mg QHS PO Last administered on 03/15/17 19:29; Start 03/08/17 at 21:00 Escitalopram Oxalate (Lexapro) 10 mg DAILY PO Last administered on 03/15/17 10: 01; Start 03/08/17 at 09:00 Quetiapine Fumarate (SEROquel) 25 mg QHS PO Last administered on 03/08/17 21: 09; Start 03/08/17 at 21:00; Stop 03/09/17 at 18:11; Status DC Risperidone (Risperdal) 0.25 mg BID PO Last administered on 03/10/17 09:10; Start 03/08/17 at 09:00; Stop 03/10/17 at 21:00; Status DC Non-Formulary Medication 1 each BID PO ; Start 03/08/17 at 09:00; Stop 03/08/17 at 09:00; Status DC Vitamin D (Vitamin D3) 2,000 unit DAILY PO ; Start 03/08/17 at 09:00; Stop 03/08 at 09:00; Status DC Cyanocobalamin (Vitamin B-12) 5,000 mcg DAILY PO ; Start 03/08/17 at 09:00; Stop 03/08/17 at 09:00; Status DC Cetirizine HCl (Zyrtec) 10 mg DAILY PO ; Start 03/08/17 at 09:00; Stop 03/08/17 at 09:00; Status DC Potassium Chloride (Klor-Con) 30 meq BIDWMEALS PO ; Start 03/08/17 at 08:00; Stop 03/08/17 at 08:00; Status DC Acetaminophen/ Codeine Phosphate (Tylenol #3) 1 tab PRN Q6HRS PRN PO PAIN Last administered on 03/13/17 15:00; Start 03/08/17 at 08:45 Glucosamine/ Chondroitin (Glucosamine-Chondroitin 500/400mg) 1 cap BID PO Last administered on 03/15/17 19:29; Start 03/08/17 at 09:00 Hydrochlorothiazide (Hydrodiuril) 25 mg DAILY PO Last administered on 03/15/17 10:01; Start 03/08/17 at 09:00 Polyethylene Glycol (miraLAX) 17 gm DAILY PO Last administered on 03/15/17 10: 01; Start 03/08/17 at 09:00 Tamsulosin HCl (Flomax) 0.4 mg QHS PO Last administered on 03/15/17 19:29; Start 03/08/17 at 21:00 Multivitamins/ Minerals (Preservision) 1 cap BID PO Last administered on 19:32; Start 03/08/17 at 09:00 Olanzapine (Zyprexa Zydis) 2.5 mg PRN Q2HR PRN PO ANXIETY / AGITATION Last administered on 03/13/17 03:56; Start 03/08/17 at 12:30 Mirtazapine (Remeron) 7.5 mg QHS PO Last administered on 03/11/17 18:55; Start 03/08/17 at 21:00; Stop 03/12/17 at 19:38; Status DC Melatonin 3 mg QHS PO Last administered on 03/12/17 19:35; Start 03/08/17 at 21:00; Stop 03/13/17 at 18:49; Status DC Trazodone HCl (Desyrel) 50 mg PRN QHS PRN PO INSOMNIA, MAY REPEAT X1; Start at 18:15; Stop 03/10/17 at 11:35; Status DC Ondansetron HCl (Zofran Odt) 4 mg PRN Q4HRS PRN PO NAUSEA/VOMITING; Start 03/09 at 19:45 Risperidone (Risperdal) 0.25 mg HS PO Last administered on 03/12/17 19:34; Start 03/10/17 at 21:00; Stop 03/13/17 at 18:49; Status DC Mirtazapine (Remeron) 7.5 mg QHS PO ; Start 03/10/17 at 21:00; Stop 03/10/17 at 21:00; Status DC Melatonin 3 mg HS PO Last administered on 03/11/17 20:59; Start 03/11/17 at 21 :00; Stop 03/12/17 at 16:21; Status DC Potassium Chloride (Klor-Con) 20 meq BID PO Last administered on 03/15/17 19:30 ; Start 03/12/17 at 21:00 Mirtazapine (Remeron) 15 mg QHS PO Last administered on 03/12/17 19:51; Start 03/12/17 at 21:00; Stop 03/13/17 at 03:33; Status DC Mirtazapine (Remeron) 15 mg QHS PO Last administered on 03/15/17 19:30; Start 03/13/17 at 21:00 Acetaminophen/ Codeine Phosphate (Tylenol #3) 1 tab HS PO Last administered on 03/15/17 19:33; Start 03/13/17 at 21:00 Melatonin 4.5 mg QHS PO ; Start 03/13/17 at 21:00; Stop 03/13/17 at 21:00; Status DC Buspirone HCl (Buspar) 5 mg BID PO Last administered on 03/15/17 19:29; Start 03/13/17 at 21:00 Quetiapine Fumarate (SEROquel) 25 mg HS PO Last administered on 03/15/17 19:30 ; Start 03/13/17 at 21:00 Melatonin 6 mg QHS PO Last administered on 03/15/17 19:29; Start 03/13/17 at 21 :00 Albuterol/ Ipratropium (Duoneb) 3 ml RTQID PRN NEB WHEEZING; Start 03/14/17 at 12:30 Active Scripts Active Reported Claritin (Loratadine) 10 Mg Tablet 10 Mg PO DAILY Vitamin B12 (Cyanocobalamin (Vitamin B-12)) 5,000 Mcg Tab.rapdis 5,000 Mcg PO DAILY Vitamin D-3 (Cholecalciferol (Vitamin D3)) 2,000 Unit Tablet 2,000 Unit PO DAILY Glucosamine-Chondroitin Cap (Glucosamine/Chondroitin Sulf A) 1 Each Capsule 1, 500 Mg PO BID Lipo-Flavonoid Plus Caplet (Bioflav,Lemon/Vit Bcomp&C) 1 Each Tablet 1 Each PO BID Preservision Areds Softgel (Vit A/Vit C/Vit E/Zinc/Copper) 1 Each Capsule 1 Each PO BID Polyethylene Glycol 3350 17 Gm Powd.pack 17 Gm PO DAILY Tylenol With Codeine #3 Tablet (Acetaminophen With Codeine) 1 Each Tablet 1 Tab PO PRN Q6HRS PRN Quetiapine Fumarate 25 Mg Tablet 25 Mg PO QHS Donepezil Hcl 5 Mg Tablet 5 Mg PO QHS Risperdal (Risperidone) 0.25 Mg Tablet 0.25 Mg PO BID Escitalopram Oxalate 10 Mg Tablet 10 Mg PO DAILY Tamsulosin Hcl 0.4 Mg Cap.er.24h 0.4 Mg PO QHS Potassium Chloride 20 Meq Tablet.er 30 Meq PO BID Hydrochlorothiazide Tablet (Hydrochlorothiazide) 25 Mg Tablet 25 Mg PO DAILY Diagnosis: Problems: (1) Anxiety disorder (2) Dementia in Alzheimer's disease with delusions (3) Dementia in Alzheimer's disease with depression (4) Dementia, vascular, with delusions (5) Dementia, vascular, with depression (6) Impulse control disorder RASHMI NEGRON MD March 15, 2017 21:13
--- NOTE | 2017-03-16 03:42 | PN ---
DATE: 03/14/2017 This late entry for 03/14/2017 covers elements not covered in my initial note. SUBJECTIVE: Overall, the patient slept 6-1/2 hours much better previous night, has been more pleasant, cooperative, less irritable and labile on 03/14/2017. His visited. Behaviorally, he is better. Nursing staff have communicated with the daughter 3 times on 03/14/2017 about the patient's progress. REVIEW OF SYSTEMS: Ambulation impaired with a walker. No CV, , pulmonary, eye system symptoms on review. MENTAL STATUS EXAM: Oriented to himself for pleasant, verbal as I met with him. Insight, judgment, recent memory is impaired. Language function intact. Attention span short. Mood and affect, lability is improved. LABORATORY DATA: Reviewed. IMPRESSION: Major neurocognitive disorder, Alzheimer, vascular with delusion, depression, rest unchanged. PLAN: Continue current psychotropics mentioned in my initial note. May need to increase BuSpar in due course, Seroquel is 25 at bedtime, Aricept 5 mg at bedtime, Lexapro 10 mg a day, Remeron 15 mg at bedtime, melatonin 6 mg at bedtime, BuSpar 5 mg b.i.d. MAN Luiz NEGRON MD DR: MARIA T/kofi JOB#: [id number] / [id number]
[2017-03-16 06:24] VITALS: BP 160/83
[2017-03-16 07:47] LABS: BASO % 0 % (0-3); EOS # 0.2 x10^3/uL (0.0-0.7); EOS % 4 % (0-3); HEMATOCRIT 33.6 % (39.0-53.0); HEMOGLOBIN 11.5 g/dL (13.0-17.5); LYMPH # 1.5 x10^3/uL (1.0-4.8); LYMPH % 30 % (24-48); MEAN CORPUSCULAR HEMOGLOBIN 32 pg (25-35); MEAN CORPUSCULAR HGB CONC 34 g/dL (31-37); MEAN CORPUSCULAR VOLUME 95 fL (79-100); MONO # 0.5 x10^3/uL (0.0-1.1); MONO % 10 % (0-9); NEUT # 2.7 x10^3uL (1.8-7.7); NEUT % 56 % (31-73); PLATELET COUNT 172 x10^3/uL (140-400); RED BLOOD COUNT 3.55 x10^6/uL (4.30-5.70); WHITE BLOOD COUNT 4.8 x10^3/uL (4.0-11.0)
[2017-03-16 08:01] LABS: ALBUMIN 3.2 g/dL (3.4-5.0); CALCIUM 8.6 mg/dL (8.5-10.1); CREATININE 0.8 mg/dL (0.7-1.3); GFR 91.7; POTASSIUM 3.6 mmol/L (3.5-5.1); TOTAL BILIRUBIN 0.6 mg/dL (0.2-1.0); TOTAL PROTEIN 6.4 g/dL (6.4-8.2)
[2017-03-16] MEDS: POLYETHYLENE GLYCOL 3350 17 GM PACKET. PO SCH (08:52)
[2017-03-16] MEDS: busPIRone 5 MG TABLET. PO SCH ×2 (08:53→20:16)
[2017-03-16] MEDS: ESCITALOPRAM 10 MG TABLET. PO SCH (08:53)
[2017-03-16] MEDS: GLUCOSAMINE/CHOND 500/400MG CAPSULE PO SCH ×2 (08:53→20:17)
[2017-03-16] MEDS: hydroCHLOROthiazide 25 MG TABLET PO SCH (08:53)
[2017-03-16] MEDS: POTASSIUM CHLORIDE 20 MEQ TABLET.ER. PO SCH ×2 (08:54→20:16)
[2017-03-16] MEDS: MULTIVITAMIN PRESERVISION CAPSULE. PO SCH (08:54)
--- NOTE | 2017-03-16 10:00 | NUR ---
Behavior Intervention Response and Plan: BIRP Note: Behavior: Assumed Care of patient, patient located in Patient Room at shift change. Patient exhibited the following behavior Calm, Interactive, Appropriate. Brief assessment on rounds of vital signs, medication needs, lab studies, and pain. Treatment plan problems . Intervention: Patient assessed and the following interventions initiated safety checks 15 Minute Checks Call black in reach , Head to toe Assessment , Medications. Response: After interactions and interventions patient responded in the following manner, Interactive , Calm ,Appropriate. Continue to assess behaviors and condition will continue to monitor throughout the shift as needed. Plan: Continue to monitor Master Treatment Plan for patient's progress toward short term goals of Medication Compliance, Decreased Anxiety, longterm goals to return to previous living setting vs placement. Continue to assess patient for changes in above assessment. Monitor for medication needs, pain, and safety concerns. Hourly rounding performed to ensure safe environment.
--- NOTE | 2017-03-16 12:45 | NUR ---
SW met w/Pt's during lunch visiting hours at her request, to discuss status of dc. DAREN stated everything is on hold until the OR notifies this SW of granted contract for a NH.
[2017-03-16 15:41] VITALS: BP 127/7
--- NOTE | 2017-03-16 16:35 | NUR ---
SW met w/Pt. after lunch while Pt. sat in his room. Pt. was very happy to share a conversation w/this SW. Pt. spoke about his of 60 years, his children, his time in the , and then asked this SW about SW's broken ankle. As the conversation came to an end, PT. shook this SW's hand and stated he would like for SW to come back again and talk later.
--- NOTE | 2017-03-16 16:42 | NUR ---
DAREN received message from DAREN Noriega at [facility] for [facility]. [facility] denied admit, stating they are unable to meet his needs at this time. Family will decide on a different [facility] contract facility and notify Marilu so that a referral package could be sent for review. Marilu requested an updated med list to be faxed to her at [phone]. DAREN will wait to hear from Marilu regarding referral status.
[2017-03-16] MEDS: QUEtiapine 25 MG TABLET. PO SCH (20:14)
[2017-03-16] MEDS: DONEPEZIL HCL 5 MG TABLET. PO SCH (20:16)
[2017-03-16] MEDS: MIRTAZAPINE 15 MG TABLET PO SCH (20:16)
[2017-03-16] MEDS: MELATONIN 3 MG TABLET PO SCH (20:17)
[2017-03-16] MEDS: TAMSULOSIN 0.4 MG CAP.ER.24H. PO SCH (20:17)
[2017-03-16] MEDS: MULTIVITAMIN I-VITE TABLET. PO SCH (20:28)
[2017-03-16] MEDS: ACETAMINOPHEN/CODEINE 300/30MG TABLET PO SCH (20:38)
--- NOTE | 2017-03-16 20:59 | PDOC ---
Exam Earle Demential Exam: Earle Note: Please also refer to the separate dictated note~for this date of service dictated separately.~Patient seen individually. Discussed the patient with Nursing staff reviewed the chart.~Reviewed interim history and current functioning. Reviewed vital signs,~Labs/ Radiology~and current medications noted below. Continue current treatment with the changes noted in the dictated addendum note Assessment: Vital Signs: Vital Signs Date Time Temp Pulse Resp B/P Pulse Ox O2 Delivery O2 Flow Rate FiO2 03/16/17 20:38 18 Room Air 03/16/17 15:41 97.9 71 127/7 96 I&O Intake and Output 03/16/17 07:00 Intake Total 960 ml Balance 960 ml Intake Oral 960 ml # Voids 2 Labs: Laboratory Tests Test 03/16/17 07:17 White Blood Count 4.8x10^3/uL (4.0-11.0) Red Blood Count 3.55x10^6/uL (4.30-5.70) L Hemoglobin 11.5g/dL (13.0-17.5) L Hematocrit 33.6% (39.0-53.0) L Mean Corpuscular Volume 95fL (79-100) Mean Corpuscular Hemoglobin 32pg (25-35) Mean Corpuscular Hemoglobin Concent 34g/dL (31-37) Red Cell Distribution Width 14.0% (11.5-14.5) Platelet Count 172x10^3/uL (140-400) Neutrophils (%) (Auto) 56% (31-73) Lymphocytes (%) (Auto) 30% (24-48) Monocytes (%) (Auto) 10% (0-9) H Eosinophils (%) (Auto) 4% (0-3) H Basophils (%) (Auto) 0% (0-3) Neutrophils # (Auto) 2.7x10^3uL (1.8-7.7) Lymphocytes # (Auto) 1.5x10^3/uL (1.0-4.8) Monocytes # (Auto) 0.5x10^3/uL (0.0-1.1) Eosinophils # (Auto) 0.2x10^3/uL (0.0-0.7) Basophils # (Auto) 0.0x10^3/uL (0.0-0.2) Sodium Level 141mmol/L (136-145) Potassium Level 3.6mmol/L (3.5-5.1) Chloride Level 105mmol/L (98-107) Carbon Dioxide Level 31mmol/L (21-32) Anion Gap 5 (6-14) L Blood Urea Nitrogen 42mg/dL (8-26) H Creatinine 0.8mg/dL (0.7-1.3) Estimated GFR (Cockcroft-Gault) 91.7 BUN/Creatinine Ratio 53 (6-20) H Glucose Level 94mg/dL (70-99) Calcium Level 8.6mg/dL (8.5-10.1) Total Bilirubin 0.6mg/dL (0.2-1.0) Aspartate Amino Transferase (AST) 28U/L (15-37) Alanine Aminotransferase (ALT) 39U/L (16-63) Alkaline Phosphatase 50U/L (46-116) Total Protein 6.4g/dL (6.4-8.2) Albumin 3.2g/dL (3.4-5.0) L Albumin/Globulin Ratio 1.0 (1.0-1.7) Current Medications: Meds: Current Medications Lactated Ringer's (Iv Lactated Ringers) 1,000 ml @ 1,000 mls/hr Q1H IV Last administered on 03/07/17 18:12; Start 03/07/17 at 18:00; Stop 03/07/17 at 23:12 ; Status DC Diphenhydramine HCl (Benadryl) 50 mg 1X ONCE IVP Last administered on 18:14; Start 03/07/17 at 18:15; Stop 03/07/17 at 18:16; Status DC Lorazepam (Ativan) 2 mg 1X ONCE IV Last administered on 03/07/17 18:19; Start 03/07/17 at 18:15; Stop 03/07/17 at 18:16; Status DC Haloperidol Lactate (Haldol) 5 mg 1X ONCE IVP ; Start 03/07/17 at 18:15; Stop 03/07/17 at 23:16; Status DC Iohexol 75 ml 75 ml 1X ONCE IV Last administered on 03/07/17 19:08; Start at 19:15; Stop 03/07/17 at 19:16; Status DC Ceftriaxone Sodium/Sodium Chloride (Rocephin/Iv Sodium Chloride 0.9% 50ml) 50 ml @ 100 mls/hr 1X ONCE IV ; Start 03/07/17 at 20:30; Stop 03/07/17 at 20:59; Status Cancel Azithromycin 500 mg 500 mg 1X ONCE PO ; Start 03/07/17 at 20:30; Stop 03/07/17 at 20:31; Status Cancel Ceftriaxone Sodium/Sodium Chloride (Rocephin/Iv Sodium Chloride 0.9% 50ml) 50 ml @ 100 mls/hr 1X ONCE IV ; Start 03/07/17 at 21:00; Stop 03/07/17 at 23:12; Status DC Azithromycin (Zithromax) 500 mg 1X ONCE PO Last administered on 03/07/17 20: 51; Start 03/07/17 at 21:00; Stop 03/07/17 at 21:01; Status DC Azithromycin (Zithromax) 250 mg DAILY06 PO Last administered on 03/15/17 05:29 ; Start 03/08/17 at 06:00; Stop 03/15/17 at 09:25; Status DC Ceftriaxone Sodium (Rocephin Im) 1 gm DAILY IM Last administered on 03/14/17 09 :45; Start 03/08/17 at 09:00; Stop 03/15/17 at 09:25; Status DC Albuterol/ Ipratropium 3 ml 3 ml RTQID NEB Last administered on 03/14/17 11:32 ; Start 03/07/17 at 21:00; Stop 03/14/17 at 12:15; Status DC Sodium Chloride (Iv Sodium Chloride 0.9% 50ml) 50 ml @ As Directed STK-MED ONCE .ROUTE ; Start 03/07/17 at 20:55; Stop 03/07/17 at 23:12; Status DC Ceftriaxone Sodium (Rocephin) 1 gm STK-MED ONCE IV ; Start 03/07/17 at 20:55; Stop 03/07/17 at 20:56; Status DC Donepezil HCl (Aricept) 5 mg QHS PO Last administered on 03/16/17 20:16; Start 03/08/17 at 21:00 Escitalopram Oxalate (Lexapro) 10 mg DAILY PO Last administered on 03/16/17 08: 53; Start 03/08/17 at 09:00 Quetiapine Fumarate (SEROquel) 25 mg QHS PO Last administered on 03/08/17 21: 09; Start 03/08/17 at 21:00; Stop 03/09/17 at 18:11; Status DC Risperidone (Risperdal) 0.25 mg BID PO Last administered on 03/10/17 09:10; Start 03/08/17 at 09:00; Stop 03/10/17 at 21:00; Status DC Non-Formulary Medication 1 each BID PO ; Start 03/08/17 at 09:00; Stop 03/08/17 at 09:00; Status DC Vitamin D (Vitamin D3) 2,000 unit DAILY PO ; Start 03/08/17 at 09:00; Stop 03/08 at 09:00; Status DC Cyanocobalamin (Vitamin B-12) 5,000 mcg DAILY PO ; Start 03/08/17 at 09:00; Stop 03/08/17 at 09:00; Status DC Cetirizine HCl (Zyrtec) 10 mg DAILY PO ; Start 03/08/17 at 09:00; Stop 03/08/17 at 09:00; Status DC Potassium Chloride (Klor-Con) 30 meq BIDWMEALS PO ; Start 03/08/17 at 08:00; Stop 03/08/17 at 08:00; Status DC Acetaminophen/ Codeine Phosphate (Tylenol #3) 1 tab PRN Q6HRS PRN PO PAIN Last administered on 03/13/17 15:00; Start 03/08/17 at 08:45 Glucosamine/ Chondroitin (Glucosamine-Chondroitin 500/400mg) 1 cap BID PO Last administered on 03/16/17 20:17; Start 03/08/17 at 09:00 Hydrochlorothiazide (Hydrodiuril) 25 mg DAILY PO Last administered on 03/16/17 08:53; Start 03/08/17 at 09:00 Polyethylene Glycol (miraLAX) 17 gm DAILY PO Last administered on 03/16/17 08: 52; Start 03/08/17 at 09:00 Tamsulosin HCl (Flomax) 0.4 mg QHS PO Last administered on 03/16/17 20:17; Start 03/08/17 at 21:00 Multivitamins/ Minerals (Preservision) 1 cap BID PO Last administered on 08:54; Start 03/08/17 at 09:00; Stop 03/16/17 at 14:50; Status DC Olanzapine (Zyprexa Zydis) 2.5 mg PRN Q2HR PRN PO ANXIETY / AGITATION Last administered on 03/13/17 03:56; Start 03/08/17 at 12:30 Mirtazapine (Remeron) 7.5 mg QHS PO Last administered on 03/11/17 18:55; Start 03/08/17 at 21:00; Stop 03/12/17 at 19:38; Status DC Melatonin 3 mg QHS PO Last administered on 03/12/17 19:35; Start 03/08/17 at 21:00; Stop 03/13/17 at 18:49; Status DC Trazodone HCl (Desyrel) 50 mg PRN QHS PRN PO INSOMNIA, MAY REPEAT X1; Start at 18:15; Stop 03/10/17 at 11:35; Status DC Ondansetron HCl (Zofran Odt) 4 mg PRN Q4HRS PRN PO NAUSEA/VOMITING; Start 03/09 at 19:45 Risperidone (Risperdal) 0.25 mg HS PO Last administered on 03/12/17 19:34; Start 03/10/17 at 21:00; Stop 03/13/17 at 18:49; Status DC Mirtazapine (Remeron) 7.5 mg QHS PO ; Start 03/10/17 at 21:00; Stop 03/10/17 at 21:00; Status DC Melatonin 3 mg HS PO Last administered on 03/11/17 20:59; Start 03/11/17 at 21 :00; Stop 03/12/17 at 16:21; Status DC Potassium Chloride (Klor-Con) 20 meq BID PO Last administered on 03/16/17 20:16 ; Start 03/12/17 at 21:00 Mirtazapine (Remeron) 15 mg QHS PO Last administered on 03/12/17 19:51; Start 03/12/17 at 21:00; Stop 03/13/17 at 03:33; Status DC Mirtazapine (Remeron) 15 mg QHS PO Last administered on 03/16/17 20:16; Start 03/13/17 at 21:00 Acetaminophen/ Codeine Phosphate (Tylenol #3) 1 tab HS PO Last administered on 03/16/17 20:38; Start 03/13/17 at 21:00 Melatonin 4.5 mg QHS PO ; Start 03/13/17 at 21:00; Stop 03/13/17 at 21:00; Status DC Buspirone HCl (Buspar) 5 mg BID PO Last administered on 03/16/17 20:16; Start 03/13/17 at 21:00 Quetiapine Fumarate (SEROquel) 25 mg HS PO Last administered on 03/15/17 19:30 ; Start 03/13/17 at 21:00; Stop 03/16/17 at 18:50; Status DC Melatonin 6 mg QHS PO Last administered on 03/16/17 20:17; Start 03/13/17 at 21 :00 Albuterol/ Ipratropium (Duoneb) 3 ml RTQID PRN NEB WHEEZING; Start 03/14/17 at 12:30 Multivitamins/ Minerals (I-Juliana) 1 tab BID PO ; Start 03/16/17 at 21:00 Quetiapine Fumarate (SEROquel) 37.5 mg HS PO Last administered on 03/16/17 20: 14; Start 03/16/17 at 21:00 Active Scripts Active Reported Claritin (Loratadine) 10 Mg Tablet 10 Mg PO DAILY Vitamin B12 (Cyanocobalamin (Vitamin B-12)) 5,000 Mcg Tab.rapdis 5,000 Mcg PO DAILY Vitamin D-3 (Cholecalciferol (Vitamin D3)) 2,000 Unit Tablet 2,000 Unit PO DAILY Glucosamine-Chondroitin Cap (Glucosamine/Chondroitin Sulf A) 1 Each Capsule 1, 500 Mg PO BID Lipo-Flavonoid Plus Caplet (Bioflav,Lemon/Vit Bcomp&C) 1 Each Tablet 1 Each PO BID Preservision Areds Softgel (Vit A/Vit C/Vit E/Zinc/Copper) 1 Each Capsule 1 Each PO BID Polyethylene Glycol 3350 17 Gm Powd.pack 17 Gm PO DAILY Tylenol With Codeine #3 Tablet (Acetaminophen With Codeine) 1 Each Tablet 1 Tab PO PRN Q6HRS PRN Quetiapine Fumarate 25 Mg Tablet 25 Mg PO QHS Donepezil Hcl 5 Mg Tablet 5 Mg PO QHS Risperdal (Risperidone) 0.25 Mg Tablet 0.25 Mg PO BID Escitalopram Oxalate 10 Mg Tablet 10 Mg PO DAILY Tamsulosin Hcl 0.4 Mg Cap.er.24h 0.4 Mg PO QHS Potassium Chloride 20 Meq Tablet.er 30 Meq PO BID Hydrochlorothiazide Tablet (Hydrochlorothiazide) 25 Mg Tablet 25 Mg PO DAILY Diagnosis: Problems: (1) Anxiety disorder (2) Dementia in Alzheimer's disease with delusions (3) Dementia in Alzheimer's disease with depression (4) Dementia, vascular, with delusions (5) Dementia, vascular, with depression (6) Impulse control disorder RASHMI NEGRON MD March 16, 2017 20:59
--- NOTE | 2017-03-17 00:33 | NUR ---
Behavior Intervention Response and Plan: BIRP Note: Behavior: Assumed Care of patient, patient located in Day Room at shift change. Patient exhibited the following behavior Calm, Cooperative, Compliant. Brief assessment on rounds of vital signs, medication needs, lab studies, and pain. Treatment plan problems Dementia with BD and Fall Risk. Intervention: Patient assessed and the following interventions initiated safety checks 15 Minute Checks Cognitive Assessment , Head to toe Assessment , Medications. Response: After interactions and interventions patient responded in the following manner, Calm , Compliant ,Cooperative. Continue to assess behaviors and condition will continue to monitor throughout the shift as needed. Plan: Continue to monitor Master Treatment Plan for patient's progress toward short term goals of Medication Compliance, Decreased Agitation, group home goals to return to previous living setting vs placement. Continue to assess patient for changes in above assessment. Monitor for medication needs, pain, and safety concerns. Hourly rounding performed to ensure safe environment.
--- NOTE | 2017-03-17 02:38 | PN ---
DATE: 03/15/2017 PSYCHIATRIC PROGRESS NOTE This is a late entry for 03/15/2017, covers elements not covered in my initial note. SUBJECTIVE: The patient slept 7 hours. His visited and he was very pleasant with her. He has completed Rocephin and Zithromax for his pneumonia. REVIEW OF SYSTEMS: Ambulation impaired with a walker. No CV, , pulmonary, eye, ENT system symptoms on review. Reliability poor. MENTAL STATUS EXAM: Oriented to himself. Insight, judgment, recent and remote memory, attention, concentration, fund of knowledge poor, consistent with his diagnosis mentioned in my initial note. IMPRESSION: Reviewed. PLAN: Continue psychotropics mentioned in my initial note. Adjust further as clinically indicated. MAN Luiz NEGRON MD DR: MARIA T/kofi JOB#: [id number] / [id number]
[2017-03-17 07:34] VITALS: BP 144/88
[2017-03-17] MEDS: POTASSIUM CHLORIDE 20 MEQ TABLET.ER. PO SCH ×2 (09:12→19:48)
[2017-03-17] MEDS: ESCITALOPRAM 10 MG TABLET. PO SCH (09:12)
[2017-03-17] MEDS: MULTIVITAMIN I-VITE TABLET. PO SCH ×2 (09:12→19:48)
[2017-03-17] MEDS: busPIRone 5 MG TABLET. PO SCH ×2 (09:12→19:48)
[2017-03-17] MEDS: hydroCHLOROthiazide 25 MG TABLET PO SCH (09:12)
[2017-03-17] MEDS: POLYETHYLENE GLYCOL 3350 17 GM PACKET. PO SCH (09:12)
[2017-03-17] MEDS: GLUCOSAMINE/CHOND 500/400MG CAPSULE PO SCH ×2 (09:12→19:48)
--- NOTE | 2017-03-17 10:10 | NUR ---
Behavior Intervention Response and Plan: BIRP Note: Behavior: Assumed Care of patient, patient located in Dining Room at shift change. Patient exhibited the following behavior Calm, Interactive, Compliant. Brief assessment on rounds of vital signs, medication needs, lab studies, and pain. Treatment plan problems . Intervention: Patient assessed and the following interventions initiated safety checks 15 Minute Checks Cognitive Assessment , Head to toe Assessment , Medications. Response: After interactions and interventions patient responded in the following manner, Calm , Attention Seeking ,Cooperative. Continue to assess behaviors and condition will continue to monitor throughout the shift as needed. 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 Continue to assess patient for changes in above assessment. Monitor for medication needs, pain, and safety concerns. Hourly rounding performed to ensure safe environment.
--- NOTE | 2017-03-17 13:48 | NUR ---
DAREN resent admit referral packet to [facility] at the family's request for reconsideration. DAR[facility]. DAREN asked the family to be ready to provide other [place] contract facility options as we are nearing discharge. DAREN told Marilu this SW will likely continue w/sending the referrals out to the other [facility] contract facilities just to help expedite the process.
--- NOTE | 2017-03-17 15:00 | NUR ---
Start Time: 15:00 End Time: 16:30 Problem: Memory Enhancing Purpose: The games served as a valuable visual manipulative to increase awareness, stimulate memory, and express feelings, Level of Participation: high Behaviors or Symptoms Observed: Pt sat with group and interacted with each other and SW regarding counting, comprehension, categorizing six subjects (people, transportation, food, animals, textures and objects) and six colors (red, green, blue, orange, yellow and black/white). Response: Pt was able to fellowship between seniors, spark memories, and draw out stories.
[2017-03-17 15:50] VITALS: BP 121/69
[2017-03-17] MEDS: MELATONIN 3 MG TABLET PO SCH (19:48)
[2017-03-17] MEDS: TAMSULOSIN 0.4 MG CAP.ER.24H. PO SCH (19:48)
[2017-03-17] MEDS: QUEtiapine 25 MG TABLET. PO SCH (19:49)
[2017-03-17] MEDS: DONEPEZIL HCL 5 MG TABLET. PO SCH (19:49)
[2017-03-17] MEDS: MIRTAZAPINE 15 MG TABLET PO SCH (19:49)
[2017-03-17] MEDS: ACETAMINOPHEN/CODEINE 300/30MG TABLET PO SCH (19:50)
--- NOTE | 2017-03-17 20:19 | PDOC ---
Exam Earle Demential Exam: Earle Note: Please also refer to the separate dictated note~for this date of service dictated separately.~Patient seen individually. Discussed the patient with Nursing staff reviewed the chart.~Reviewed interim history and current functioning. Reviewed vital signs,~Labs/ Radiology~and current medications noted below. Continue current treatment with the changes noted in the dictated addendum note Assessment: Vital Signs: Vital Signs Date Time Temp Pulse Resp B/P (MAP) Pulse Ox O2 Delivery O2 Flow Rate FiO2 03/17/17 19:50 98 Room Air 03/17/17 15:50 98.3 69 16 121/69 (86) I&O Intake and Output 03/17/17 07:00 Intake Total 1200 ml Balance 1200 ml Intake Oral 1200 ml # Voids 1 Current Medications: Meds: Current Medications Lactated Ringer's 1,000 ml @ 1,000 mls/hr Q1H IV Last administered on 18:12; Start 03/07/17 at 18:00; Stop 03/07/17 at 23:12; Status DC Diphenhydramine HCl (Benadryl) 50 mg 1X ONCE IVP Last administered on 18:14; Start 03/07/17 at 18:15; Stop 03/07/17 at 18:16; Status DC Lorazepam (Ativan) 2 mg 1X ONCE IV Last administered on 03/07/17 18:19; Start 03/07/17 at 18:15; Stop 03/07/17 at 18:16; Status DC Haloperidol Lactate (Haldol) 5 mg 1X ONCE IVP ; Start 03/07/17 at 18:15; Stop 03/07/17 at 23:16; Status DC Iohexol (Omnipaque 300 Mg/ml) 75 ml 1X ONCE IV Last administered on 03/07/17 19:08; Start 03/07/17 at 19:15; Stop 03/07/17 at 19:16; Status DC Ceftriaxone Sodium 1 gm/ Sodium Chloride 50 ml @ 100 mls/hr 1X ONCE IV ; Start 03/07/17 at 20:30; Stop 03/07/17 at 20:59; Status Cancel Azithromycin (Zithromax) 500 mg 1X ONCE PO ; Start 03/07/17 at 20:30; Stop at 20:31; Status Cancel Ceftriaxone Sodium 1 gm/ Sodium Chloride 50 ml @ 100 mls/hr 1X ONCE IV ; Start 03/07/17 at 21:00; Stop 03/07/17 at 23:12; Status DC Azithromycin (Zithromax) 500 mg 1X ONCE PO Last administered on 03/07/17 20: 51; Start 03/07/17 at 21:00; Stop 03/07/17 at 21:01; Status DC Azithromycin (Zithromax) 250 mg DAILY06 PO Last administered on 03/15/17 05:29 ; Start 03/08/17 at 06:00; Stop 03/15/17 at 09:25; Status DC Ceftriaxone Sodium (Rocephin Im) 1 gm DAILY IM Last administered on 03/14/17 09 :45; Start 03/08/17 at 09:00; Stop 03/15/17 at 09:25; Status DC Albuterol/ Ipratropium (Duoneb) 3 ml RTQID NEB Last administered on 03/14/17 11 :32; Start 03/07/17 at 21:00; Stop 03/14/17 at 12:15; Status DC Sodium Chloride 50 ml @ As Directed STK-MED ONCE .ROUTE ; Start 03/07/17 at 20: 55; Stop 03/07/17 at 23:12; Status DC Ceftriaxone Sodium (Rocephin) 1 gm STK-MED ONCE IV ; Start 03/07/17 at 20:55; Stop 03/07/17 at 20:56; Status DC Donepezil HCl (Aricept) 5 mg QHS PO Last administered on 03/17/17 19:49; Start 03/08/17 at 21:00 Escitalopram Oxalate (Lexapro) 10 mg DAILY PO Last administered on 03/17/17 09: 12; Start 03/08/17 at 09:00 Quetiapine Fumarate (SEROquel) 25 mg QHS PO Last administered on 03/08/17 21: 09; Start 03/08/17 at 21:00; Stop 03/09/17 at 18:11; Status DC Risperidone (Risperdal) 0.25 mg BID PO Last administered on 03/10/17 09:10; Start 03/08/17 at 09:00; Stop 03/10/17 at 21:00; Status DC Non-Formulary Medication 1 each BID PO ; Start 03/08/17 at 09:00; Stop 03/08/17 at 09:00; Status DC Vitamin D (Vitamin D3) 2,000 unit DAILY PO ; Start 03/08/17 at 09:00; Stop 03/08 at 09:00; Status DC Cyanocobalamin (Vitamin B-12) 5,000 mcg DAILY PO ; Start 03/08/17 at 09:00; Stop 03/08/17 at 09:00; Status DC Cetirizine HCl (Zyrtec) 10 mg DAILY PO ; Start 03/08/17 at 09:00; Stop 03/08/17 at 09:00; Status DC Potassium Chloride (Klor-Con) 30 meq BIDWMEALS PO ; Start 03/08/17 at 08:00; Stop 03/08/17 at 08:00; Status DC Acetaminophen/ Codeine Phosphate (Tylenol #3) 1 tab PRN Q6HRS PRN PO PAIN Last administered on 03/13/17 15:00; Start 03/08/17 at 08:45 Glucosamine/ Chondroitin (Glucosamine-Chondroitin 500/400mg) 1 cap BID PO Last administered on 03/17/17 19:48; Start 03/08/17 at 09:00 Hydrochlorothiazide (Hydrodiuril) 25 mg DAILY PO Last administered on 03/17/17 09:12; Start 03/08/17 at 09:00 Polyethylene Glycol (miraLAX) 17 gm DAILY PO Last administered on 03/17/17 09: 12; Start 03/08/17 at 09:00 Tamsulosin HCl (Flomax) 0.4 mg QHS PO Last administered on 03/17/17 19:48; Start 03/08/17 at 21:00 Multivitamins/ Minerals (Preservision) 1 cap BID PO Last administered on 08:54; Start 03/08/17 at 09:00; Stop 03/16/17 at 14:50; Status DC Olanzapine (Zyprexa Zydis) 2.5 mg PRN Q2HR PRN PO ANXIETY / AGITATION Last administered on 03/13/17 03:56; Start 03/08/17 at 12:30 Mirtazapine (Remeron) 7.5 mg QHS PO Last administered on 03/11/17 18:55; Start 03/08/17 at 21:00; Stop 03/12/17 at 19:38; Status DC Melatonin 3 mg QHS PO Last administered on 03/12/17 19:35; Start 03/08/17 at 21:00; Stop 03/13/17 at 18:49; Status DC Trazodone HCl (Desyrel) 50 mg PRN QHS PRN PO INSOMNIA, MAY REPEAT X1; Start at 18:15; Stop 03/10/17 at 11:35; Status DC Ondansetron HCl (Zofran Odt) 4 mg PRN Q4HRS PRN PO NAUSEA/VOMITING; Start 03/09 at 19:45 Risperidone (Risperdal) 0.25 mg HS PO Last administered on 03/12/17 19:34; Start 03/10/17 at 21:00; Stop 03/13/17 at 18:49; Status DC Mirtazapine (Remeron) 7.5 mg QHS PO ; Start 03/10/17 at 21:00; Stop 03/10/17 at 21:00; Status DC Melatonin 3 mg HS PO Last administered on 03/11/17 20:59; Start 03/11/17 at 21 :00; Stop 03/12/17 at 16:21; Status DC Potassium Chloride (Klor-Con) 20 meq BID PO Last administered on 03/17/17 19:48 ; Start 03/12/17 at 21:00 Mirtazapine (Remeron) 15 mg QHS PO Last administered on 03/12/17 19:51; Start 03/12/17 at 21:00; Stop 03/13/17 at 03:33; Status DC Mirtazapine (Remeron) 15 mg QHS PO Last administered on 03/17/17 19:49; Start 03/13/17 at 21:00 Acetaminophen/ Codeine Phosphate (Tylenol #3) 1 tab HS PO Last administered on 03/17/17 19:50; Start 03/13/17 at 21:00 Melatonin 4.5 mg QHS PO ; Start 03/13/17 at 21:00; Stop 03/13/17 at 21:00; Status DC Buspirone HCl (Buspar) 5 mg BID PO Last administered on 03/17/17 19:48; Start 03/13/17 at 21:00 Quetiapine Fumarate (SEROquel) 25 mg HS PO Last administered on 03/15/17 19:30 ; Start 03/13/17 at 21:00; Stop 03/16/17 at 18:50; Status DC Melatonin 6 mg QHS PO Last administered on 03/17/17 19:48; Start 03/13/17 at 21 :00 Albuterol/ Ipratropium (Duoneb) 3 ml RTQID PRN NEB WHEEZING; Start 03/14/17 at 12:30 Multivitamins/ Minerals (I-Juliana) 1 tab BID PO Last administered on 03/17/17 19: 48; Start 03/16/17 at 21:00 Quetiapine Fumarate (SEROquel) 37.5 mg HS PO Last administered on 03/17/17 19: 49; Start 03/16/17 at 21:00 Active Scripts Active Reported Claritin (Loratadine) 10 Mg Tablet 10 Mg PO DAILY Vitamin B12 (Cyanocobalamin (Vitamin B-12)) 5,000 Mcg Tab.rapdis 5,000 Mcg PO DAILY Vitamin D-3 (Cholecalciferol (Vitamin D3)) 2,000 Unit Tablet 2,000 Unit PO DAILY Glucosamine-Chondroitin Cap (Glucosamine/Chondroitin Sulf A) 1 Each Capsule 1, 500 Mg PO BID Lipo-Flavonoid Plus Caplet (Bioflav,Lemon/Vit Bcomp&C) 1 Each Tablet 1 Each PO BID Preservision Areds Softgel (Vit A/Vit C/Vit E/Zinc/Copper) 1 Each Capsule 1 Each PO BID Polyethylene Glycol 3350 17 Gm Powd.pack 17 Gm PO DAILY Tylenol With Codeine #3 Tablet (Acetaminophen With Codeine) 1 Each Tablet 1 Tab PO PRN Q6HRS PRN Quetiapine Fumarate 25 Mg Tablet 25 Mg PO QHS Donepezil Hcl 5 Mg Tablet 5 Mg PO QHS Risperdal (Risperidone) 0.25 Mg Tablet 0.25 Mg PO BID Escitalopram Oxalate 10 Mg Tablet 10 Mg PO DAILY Tamsulosin Hcl 0.4 Mg Cap.er.24h 0.4 Mg PO QHS Potassium Chloride 20 Meq Tablet.er 30 Meq PO BID Hydrochlorothiazide Tablet (Hydrochlorothiazide) 25 Mg Tablet 25 Mg PO DAILY Diagnosis: Problems: (1) Anxiety disorder (2) Dementia in Alzheimer's disease with delusions (3) Dementia in Alzheimer's disease with depression (4) Dementia, vascular, with delusions (5) Dementia, vascular, with depression (6) Impulse control disorder RASHMI NEGRON MD March 17, 2017 20:19
--- NOTE | 2017-03-17 22:31 | NUR ---
Behavior Intervention Response and Plan: BIRP Note: Behavior: Assumed Care of patient, patient located in Day Room at shift change. Patient exhibited the following behavior Calm, Restless, Able to Focus on Task. Brief assessment on rounds of vital signs, medication needs, lab studies, and pain. Treatment plan problems . Intervention: Patient assessed and the following interventions initiated safety checks 15 Minute Checks Cognitive Assessment , Head to toe Assessment , Medications. Response: After interactions and interventions patient responded in the following manner, Appropriate , Compliant ,Cooperative. Continue to assess behaviors and condition will continue to monitor throughout the shift as needed. 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 Continue to assess patient for changes in above assessment. Monitor for medication needs, pain, and safety concerns. Hourly rounding performed to ensure safe environment.
[2017-03-18 06:32] VITALS: BP 143/66
[2017-03-18] MEDS: MULTIVITAMIN I-VITE TABLET. PO SCH ×2 (08:45→19:51)
[2017-03-18] MEDS: ESCITALOPRAM 10 MG TABLET. PO SCH (08:45)
[2017-03-18] MEDS: POLYETHYLENE GLYCOL 3350 17 GM PACKET. PO SCH (08:45)
[2017-03-18] MEDS: hydroCHLOROthiazide 25 MG TABLET PO SCH (08:45)
[2017-03-18] MEDS: GLUCOSAMINE/CHOND 500/400MG CAPSULE PO SCH ×2 (08:46→19:50)
[2017-03-18] MEDS: busPIRone 5 MG TABLET. PO SCH ×2 (08:46→19:52)
[2017-03-18] MEDS: POTASSIUM CHLORIDE 20 MEQ TABLET.ER. PO SCH ×2 (08:46→19:51)
--- NOTE | 2017-03-18 09:53 | NUR ---
Behavior Intervention Response and Plan: BIRP Note: Behavior: Assumed Care of patient, patient located in Patient Room at shift change. Patient exhibited the following behavior Calm, Appropriate, Compliant. Brief assessment on rounds of vital signs, medication needs, lab studies, and pain. Treatment plan problems 1 and 2. Intervention: Patient assessed and the following interventions initiated safety checks 15 Minute Checks Cognitive Assessment , Head to toe Assessment , Medications. Response: After interactions and interventions patient responded in the following manner, Disorganized , Calm ,Compliant. Continue to assess behaviors and condition will continue to monitor throughout the shift as needed. Plan: Continue to monitor Master Treatment Plan for patient's progress toward short term goals of No harm To self/ others, Decreased Anxiety, prison goals to return to previous living setting vs placement. Continue to assess patient for changes in above assessment. Monitor for medication needs, pain, and safety concerns. Hourly rounding performed to ensure safe environment.
[2017-03-18 15:47] VITALS: BP 127/70
--- NOTE | 2017-03-18 15:52 | NUR ---
Group Note [facility] Group Type [place]as Start Time: 1315 End Time: 1345 Problem: Anxiety Purpose: Increase Concentration Level of Participation: High Pt sat outside and made homemade maracas out of Easter eggs and monson beans. Pt were able to use washi tape to decorate the maracas that were going to be used later for the "Fiesta" Interventions: Directed Focus Plan: group Additional Comments:
[2017-03-18] MEDS: MIRTAZAPINE 15 MG TABLET PO SCH (19:52)
[2017-03-18] MEDS: ACETAMINOPHEN/CODEINE 300/30MG TABLET PO SCH (19:52)
[2017-03-18] MEDS: MELATONIN 3 MG TABLET PO SCH (19:52)
[2017-03-18] MEDS: DONEPEZIL HCL 5 MG TABLET. PO SCH (19:52)
[2017-03-18] MEDS: QUEtiapine 25 MG TABLET. PO SCH (19:52)
[2017-03-18] MEDS: TAMSULOSIN 0.4 MG CAP.ER.24H. PO SCH (19:53)
--- NOTE | 2017-03-18 20:09 | PDOC ---
Exam Earle Demential Exam: Earle Note: Please also refer to the separate dictated note~for this date of service dictated separately.~Patient seen individually. Discussed the patient with Nursing staff reviewed the chart.~Reviewed interim history and current functioning. Reviewed vital signs,~Labs/ Radiology~and current medications noted below. Continue current treatment with the changes noted in the dictated addendum note Assessment: Vital Signs: Vital Signs Date Time Temp Pulse Resp B/P (MAP) Pulse Ox O2 Delivery O2 Flow Rate FiO2 03/18/17 19:52 18 Room Air 03/18/17 15:47 98.9 65 127/70 (89) 96 I&O Intake and Output 03/18/17 07:00 Intake Total 1570 ml Balance 1570 ml Intake Oral 1570 ml # Voids 1 # Bowel Movements 1 Current Medications: Meds: Current Medications Lactated Ringer's 1,000 ml @ 1,000 mls/hr Q1H IV Last administered on 18:12; Start 03/07/17 at 18:00; Stop 03/07/17 at 23:12; Status DC Diphenhydramine HCl (Benadryl) 50 mg 1X ONCE IVP Last administered on 18:14; Start 03/07/17 at 18:15; Stop 03/07/17 at 18:16; Status DC Lorazepam (Ativan) 2 mg 1X ONCE IV Last administered on 03/07/17 18:19; Start 03/07/17 at 18:15; Stop 03/07/17 at 18:16; Status DC Haloperidol Lactate (Haldol) 5 mg 1X ONCE IVP ; Start 03/07/17 at 18:15; Stop 03/07/17 at 23:16; Status DC Iohexol (Omnipaque 300 Mg/ml) 75 ml 1X ONCE IV Last administered on 03/07/17 19:08; Start 03/07/17 at 19:15; Stop 03/07/17 at 19:16; Status DC Ceftriaxone Sodium 1 gm/ Sodium Chloride 50 ml @ 100 mls/hr 1X ONCE IV ; Start 03/07/17 at 20:30; Stop 03/07/17 at 20:59; Status Cancel Azithromycin (Zithromax) 500 mg 1X ONCE PO ; Start 03/07/17 at 20:30; Stop at 20:31; Status Cancel Ceftriaxone Sodium 1 gm/ Sodium Chloride 50 ml @ 100 mls/hr 1X ONCE IV ; Start 03/07/17 at 21:00; Stop 03/07/17 at 23:12; Status DC Azithromycin (Zithromax) 500 mg 1X ONCE PO Last administered on 03/07/17 20: 51; Start 03/07/17 at 21:00; Stop 03/07/17 at 21:01; Status DC Azithromycin (Zithromax) 250 mg DAILY06 PO Last administered on 03/15/17 05:29 ; Start 03/08/17 at 06:00; Stop 03/15/17 at 09:25; Status DC Ceftriaxone Sodium (Rocephin Im) 1 gm DAILY IM Last administered on 03/14/17 09 :45; Start 03/08/17 at 09:00; Stop 03/15/17 at 09:25; Status DC Albuterol/ Ipratropium (Duoneb) 3 ml RTQID NEB Last administered on 03/14/17 11 :32; Start 03/07/17 at 21:00; Stop 03/14/17 at 12:15; Status DC Sodium Chloride 50 ml @ As Directed STK-MED ONCE .ROUTE ; Start 03/07/17 at 20: 55; Stop 03/07/17 at 23:12; Status DC Ceftriaxone Sodium (Rocephin) 1 gm STK-MED ONCE IV ; Start 03/07/17 at 20:55; Stop 03/07/17 at 20:56; Status DC Donepezil HCl (Aricept) 5 mg QHS PO Last administered on 03/18/17 19:52; Start 03/08/17 at 21:00 Escitalopram Oxalate (Lexapro) 10 mg DAILY PO Last administered on 03/18/17 08: 45; Start 03/08/17 at 09:00 Quetiapine Fumarate (SEROquel) 25 mg QHS PO Last administered on 03/08/17 21: 09; Start 03/08/17 at 21:00; Stop 03/09/17 at 18:11; Status DC Risperidone (Risperdal) 0.25 mg BID PO Last administered on 03/10/17 09:10; Start 03/08/17 at 09:00; Stop 03/10/17 at 21:00; Status DC Non-Formulary Medication 1 each BID PO ; Start 03/08/17 at 09:00; Stop 03/08/17 at 09:00; Status DC Vitamin D (Vitamin D3) 2,000 unit DAILY PO ; Start 03/08/17 at 09:00; Stop 03/08 at 09:00; Status DC Cyanocobalamin (Vitamin B-12) 5,000 mcg DAILY PO ; Start 03/08/17 at 09:00; Stop 03/08/17 at 09:00; Status DC Cetirizine HCl (Zyrtec) 10 mg DAILY PO ; Start 03/08/17 at 09:00; Stop 03/08/17 at 09:00; Status DC Potassium Chloride (Klor-Con) 30 meq BIDWMEALS PO ; Start 03/08/17 at 08:00; Stop 03/08/17 at 08:00; Status DC Acetaminophen/ Codeine Phosphate (Tylenol #3) 1 tab PRN Q6HRS PRN PO PAIN Last administered on 03/13/17 15:00; Start 03/08/17 at 08:45 Glucosamine/ Chondroitin (Glucosamine-Chondroitin 500/400mg) 1 cap BID PO Last administered on 03/18/17 19:50; Start 03/08/17 at 09:00 Hydrochlorothiazide (Hydrodiuril) 25 mg DAILY PO Last administered on 03/18/17 08:45; Start 03/08/17 at 09:00 Polyethylene Glycol (miraLAX) 17 gm DAILY PO Last administered on 03/18/17 08: 45; Start 03/08/17 at 09:00 Tamsulosin HCl (Flomax) 0.4 mg QHS PO Last administered on 03/18/17 19:53; Start 03/08/17 at 21:00 Multivitamins/ Minerals (Preservision) 1 cap BID PO Last administered on 08:54; Start 03/08/17 at 09:00; Stop 03/16/17 at 14:50; Status DC Olanzapine (Zyprexa Zydis) 2.5 mg PRN Q2HR PRN PO ANXIETY / AGITATION Last administered on 03/13/17 03:56; Start 03/08/17 at 12:30 Mirtazapine (Remeron) 7.5 mg QHS PO Last administered on 03/11/17 18:55; Start 03/08/17 at 21:00; Stop 03/12/17 at 19:38; Status DC Melatonin 3 mg QHS PO Last administered on 03/12/17 19:35; Start 03/08/17 at 21:00; Stop 03/13/17 at 18:49; Status DC Trazodone HCl (Desyrel) 50 mg PRN QHS PRN PO INSOMNIA, MAY REPEAT X1; Start at 18:15; Stop 03/10/17 at 11:35; Status DC Ondansetron HCl (Zofran Odt) 4 mg PRN Q4HRS PRN PO NAUSEA/VOMITING; Start 03/09 at 19:45 Risperidone (Risperdal) 0.25 mg HS PO Last administered on 03/12/17 19:34; Start 03/10/17 at 21:00; Stop 03/13/17 at 18:49; Status DC Mirtazapine (Remeron) 7.5 mg QHS PO ; Start 03/10/17 at 21:00; Stop 03/10/17 at 21:00; Status DC Melatonin 3 mg HS PO Last administered on 03/11/17 20:59; Start 03/11/17 at 21 :00; Stop 03/12/17 at 16:21; Status DC Potassium Chloride (Klor-Con) 20 meq BID PO Last administered on 03/18/17 19:51 ; Start 03/12/17 at 21:00 Mirtazapine (Remeron) 15 mg QHS PO Last administered on 03/12/17 19:51; Start 03/12/17 at 21:00; Stop 03/13/17 at 03:33; Status DC Mirtazapine (Remeron) 15 mg QHS PO Last administered on 03/18/17 19:52; Start 03/13/17 at 21:00 Acetaminophen/ Codeine Phosphate (Tylenol #3) 1 tab HS PO Last administered on 03/18/17 19:52; Start 03/13/17 at 21:00 Melatonin 4.5 mg QHS PO ; Start 03/13/17 at 21:00; Stop 03/13/17 at 21:00; Status DC Buspirone HCl (Buspar) 5 mg BID PO Last administered on 03/18/17 19:52; Start 03/13/17 at 21:00 Quetiapine Fumarate (SEROquel) 25 mg HS PO Last administered on 03/15/17 19:30 ; Start 03/13/17 at 21:00; Stop 03/16/17 at 18:50; Status DC Melatonin 6 mg QHS PO Last administered on 03/18/17 19:52; Start 03/13/17 at 21 :00 Albuterol/ Ipratropium (Duoneb) 3 ml RTQID PRN NEB WHEEZING; Start 03/14/17 at 12:30 Multivitamins/ Minerals (I-Juliana) 1 tab BID PO Last administered on 03/18/17 19: 51; Start 03/16/17 at 21:00 Quetiapine Fumarate (SEROquel) 37.5 mg HS PO Last administered on 03/18/17 19: 52; Start 03/16/17 at 21:00 Active Scripts Active Reported Claritin (Loratadine) 10 Mg Tablet 10 Mg PO DAILY Vitamin B12 (Cyanocobalamin (Vitamin B-12)) 5,000 Mcg Tab.rapdis 5,000 Mcg PO DAILY Vitamin D-3 (Cholecalciferol (Vitamin D3)) 2,000 Unit Tablet 2,000 Unit PO DAILY Glucosamine-Chondroitin Cap (Glucosamine/Chondroitin Sulf A) 1 Each Capsule 1, 500 Mg PO BID Lipo-Flavonoid Plus Caplet (Bioflav,Lemon/Vit Bcomp&C) 1 Each Tablet 1 Each PO BID Preservision Areds Softgel (Vit A/Vit C/Vit E/Zinc/Copper) 1 Each Capsule 1 Each PO BID Polyethylene Glycol 3350 17 Gm Powd.pack 17 Gm PO DAILY Tylenol With Codeine #3 Tablet (Acetaminophen With Codeine) 1 Each Tablet 1 Tab PO PRN Q6HRS PRN Quetiapine Fumarate 25 Mg Tablet 25 Mg PO QHS Donepezil Hcl 5 Mg Tablet 5 Mg PO QHS Risperdal (Risperidone) 0.25 Mg Tablet 0.25 Mg PO BID Escitalopram Oxalate 10 Mg Tablet 10 Mg PO DAILY Tamsulosin Hcl 0.4 Mg Cap.er.24h 0.4 Mg PO QHS Potassium Chloride 20 Meq Tablet.er 30 Meq PO BID Hydrochlorothiazide Tablet (Hydrochlorothiazide) 25 Mg Tablet 25 Mg PO DAILY Diagnosis: Problems: (1) Anxiety disorder (2) Dementia in Alzheimer's disease with delusions (3) Dementia in Alzheimer's disease with depression (4) Dementia, vascular, with delusions (5) Dementia, vascular, with depression (6) Impulse control disorder RASHMI NEGRON MD March 18, 2017 20:09
--- NOTE | 2017-03-18 23:13 | NUR ---
Behavior Intervention Response and Plan: BIRP Note: Behavior: Assumed Care of patient, patient located in Patient Room at shift change. Patient exhibited the following behavior Irritable, Compliant, Cooperative. Brief assessment on rounds of vital signs, medication needs, lab studies, and pain. Treatment plan problems Dementia with BD and Fall Risk. Intervention: Patient assessed and the following interventions initiated safety checks 15 Minute Checks Cognitive Assessment , Head to toe Assessment , Medications. Response: After interactions and interventions patient responded in the following manner, Wandering , Irritable ,Compliant. Continue to assess behaviors and condition will continue to monitor throughout the shift as needed. Plan: Continue to monitor Master Treatment Plan for patient's progress toward short term goals of Medication Compliance, Decreased Aggression, halfway goals to return to previous living setting vs placement. Continue to assess patient for changes in above assessment. Monitor for medication needs, pain, and safety concerns. Hourly rounding performed to ensure safe environment.
--- NOTE | 2017-03-19 01:59 | PN ---
DATE: 03/16/2017 This late entry for 03/16/2017 covers elements not covered in my initial note. SUBJECTIVE: Overall, the patient remains confused, forgetful, but is sleeping better, slept 5-3/4 hours previous night. This note covers elements not covered in my initial note. REVIEW OF SYSTEMS: Ambulation impaired with a walker. No CV, , pulmonary, eye system symptoms on review. MENTAL STATUS EXAM: Oriented to himself and situation. Speech coherent, has some latency, abstraction fair, computation impaired, language function intact, attention span short. Mood and affect somewhat anxious, labile. LABORATORY DATA: Reviewed. IMPRESSION: Unchanged from initial note. PLAN: Increase Seroquel from 25 mg at bedtime to 37.5 mg at bedtime. Continue Aricept 5 mg a day, Lexapro 10 mg a day, Remeron 15 mg at bedtime, melatonin 6 mg at bedtime, BuSpar 5 mg b.i.d., Zyprexa p.r.n. Adjust further as clinically indicated. MAN Luiz NEGRON MD DR: MARIA T/kofi JOB#: [id number] / [id number]
--- NOTE | 2017-03-19 02:26 | PN ---
DATE: 03/17/2017 This is a late entry, covers the elements not covered in my initial note. SUBJECTIVE: The patient was staffed at treatment team meeting with intact team with the patient's daughter Rodrigo attending the conference. We had a lengthy discussion of patient's diagnosis, current progress, and medications. DISCHARGE PLAN: Placement options including [facility]. Reported[facility], [facility], which [facility] not [facility], and therefore, they feel the patient is more agitated and he currently is which in fact, he is doing better. He is compliant with his medications, sleeping 6-7 hours. Appetite, 95% of meals. REVIEW OF SYSTEMS: Ambulation impaired with the walker. No CV, , pulmonary, eye system symptoms on review. Reliability poor. MENTAL STATUS EXAM: Oriented to himself. Insight, judgment, recent and remote memory, attention, concentration, fund of knowledge poor, consistent with his diagnosis as mentioned in my initial note. PLAN: Continue current psychotropics including the increased Seroquel to 37.5 mg at bedtime, adjust further as clinically indicated. MAN Luiz NEGRON MD DR: MARIA T/kofi JOB#: [id number] / [id number]
[2017-03-19 06:32] VITALS: BP 157/88
[2017-03-19] MEDS: POLYETHYLENE GLYCOL 3350 17 GM PACKET. PO SCH (08:26)
[2017-03-19] MEDS: MULTIVITAMIN I-VITE TABLET. PO SCH ×2 (08:26→20:09)
[2017-03-19] MEDS: hydroCHLOROthiazide 25 MG TABLET PO SCH (08:26)
[2017-03-19] MEDS: ESCITALOPRAM 10 MG TABLET. PO SCH (08:26)
[2017-03-19] MEDS: busPIRone 5 MG TABLET. PO SCH ×2 (08:26→20:08)
[2017-03-19] MEDS: POTASSIUM CHLORIDE 20 MEQ TABLET.ER. PO SCH ×2 (08:26→20:09)
[2017-03-19] MEDS: GLUCOSAMINE/CHOND 500/400MG CAPSULE PO SCH ×2 (08:26→20:08)
--- NOTE | 2017-03-19 11:14 | NUR ---
Behavior Intervention Response and Plan: BIRP Note: Behavior: Assumed Care of patient, patient located in Patient Room at shift change. Patient exhibited the following behavior calm, cooperative, and confused. Brief assessment on rounds of vital signs, medication needs, lab studies, and pain. Treatment plan problems . Intervention: Patient assessed and the following interventions initiated safety checks Cognitive Assessment , Head to toe Assessment , Medications. Response: After interactions and interventions patient responded in the following manner, calm, cooperative, and confused. Continue to assess behaviors and condition will continue to monitor throughout the shift as needed. 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 Continue to assess patient for changes in above assessment. Monitor for medication needs, pain, and safety concerns. Hourly rounding performed to ensure safe environment.
[2017-03-19 16:08] VITALS: BP 113/69
--- NOTE | 2017-03-19 19:05 | PDOC ---
Exam Earle Demential Exam: Earle Note: Please also refer to the separate dictated note~for this date of service dictated separately.~Patient seen individually. Discussed the patient with Nursing staff reviewed the chart.~Reviewed interim history and current functioning. Reviewed vital signs,~Labs/ Radiology~and current medications noted below. Continue current treatment with the changes noted in the dictated addendum note Assessment: Vital Signs: Vital Signs Date Time Temp Pulse Resp B/P (MAP) Pulse Ox O2 Delivery O2 Flow Rate FiO2 03/19/17 16:08 97.6 64 18 113/69 (84) 98 03/18/17 22:11 Room Air I&O Intake and Output 03/19/17 07:00 Intake Total 1320 ml Balance 1320 ml Intake Oral 1320 ml # Voids 1 # Bowel Movements 1 Current Medications: Meds: Current Medications Lactated Ringer's 1,000 ml @ 1,000 mls/hr Q1H IV Last administered on 18:12; Start 03/07/17 at 18:00; Stop 03/07/17 at 23:12; Status DC Diphenhydramine HCl (Benadryl) 50 mg 1X ONCE IVP Last administered on 18:14; Start 03/07/17 at 18:15; Stop 03/07/17 at 18:16; Status DC Lorazepam (Ativan) 2 mg 1X ONCE IV Last administered on 03/07/17 18:19; Start 03/07/17 at 18:15; Stop 03/07/17 at 18:16; Status DC Haloperidol Lactate (Haldol) 5 mg 1X ONCE IVP ; Start 03/07/17 at 18:15; Stop 03/07/17 at 23:16; Status DC Iohexol (Omnipaque 300 Mg/ml) 75 ml 1X ONCE IV Last administered on 03/07/17 19:08; Start 03/07/17 at 19:15; Stop 03/07/17 at 19:16; Status DC Ceftriaxone Sodium 1 gm/ Sodium Chloride 50 ml @ 100 mls/hr 1X ONCE IV ; Start 03/07/17 at 20:30; Stop 03/07/17 at 20:59; Status Cancel Azithromycin (Zithromax) 500 mg 1X ONCE PO ; Start 03/07/17 at 20:30; Stop at 20:31; Status Cancel Ceftriaxone Sodium 1 gm/ Sodium Chloride 50 ml @ 100 mls/hr 1X ONCE IV ; Start 03/07/17 at 21:00; Stop 03/07/17 at 23:12; Status DC Azithromycin (Zithromax) 500 mg 1X ONCE PO Last administered on 03/07/17 20: 51; Start 03/07/17 at 21:00; Stop 03/07/17 at 21:01; Status DC Azithromycin (Zithromax) 250 mg DAILY06 PO Last administered on 03/15/17 05:29 ; Start 03/08/17 at 06:00; Stop 03/15/17 at 09:25; Status DC Ceftriaxone Sodium (Rocephin Im) 1 gm DAILY IM Last administered on 03/14/17 09 :45; Start 03/08/17 at 09:00; Stop 03/15/17 at 09:25; Status DC Albuterol/ Ipratropium (Duoneb) 3 ml RTQID NEB Last administered on 03/14/17 11 :32; Start 03/07/17 at 21:00; Stop 03/14/17 at 12:15; Status DC Sodium Chloride 50 ml @ As Directed STK-MED ONCE .ROUTE ; Start 03/07/17 at 20: 55; Stop 03/07/17 at 23:12; Status DC Ceftriaxone Sodium (Rocephin) 1 gm STK-MED ONCE IV ; Start 03/07/17 at 20:55; Stop 03/07/17 at 20:56; Status DC Donepezil HCl (Aricept) 5 mg QHS PO Last administered on 03/18/17 19:52; Start 03/08/17 at 21:00 Escitalopram Oxalate (Lexapro) 10 mg DAILY PO Last administered on 03/19/17 08: 26; Start 03/08/17 at 09:00 Quetiapine Fumarate (SEROquel) 25 mg QHS PO Last administered on 03/08/17 21: 09; Start 03/08/17 at 21:00; Stop 03/09/17 at 18:11; Status DC Risperidone (Risperdal) 0.25 mg BID PO Last administered on 03/10/17 09:10; Start 03/08/17 at 09:00; Stop 03/10/17 at 21:00; Status DC Non-Formulary Medication 1 each BID PO ; Start 03/08/17 at 09:00; Stop 03/08/17 at 09:00; Status DC Vitamin D (Vitamin D3) 2,000 unit DAILY PO ; Start 03/08/17 at 09:00; Stop 03/08 at 09:00; Status DC Cyanocobalamin (Vitamin B-12) 5,000 mcg DAILY PO ; Start 03/08/17 at 09:00; Stop 03/08/17 at 09:00; Status DC Cetirizine HCl (Zyrtec) 10 mg DAILY PO ; Start 03/08/17 at 09:00; Stop 03/08/17 at 09:00; Status DC Potassium Chloride (Klor-Con) 30 meq BIDWMEALS PO ; Start 03/08/17 at 08:00; Stop 03/08/17 at 08:00; Status DC Acetaminophen/ Codeine Phosphate (Tylenol #3) 1 tab PRN Q6HRS PRN PO PAIN Last administered on 03/13/17 15:00; Start 03/08/17 at 08:45 Glucosamine/ Chondroitin (Glucosamine-Chondroitin 500/400mg) 1 cap BID PO Last administered on 03/19/17 08:26; Start 03/08/17 at 09:00 Hydrochlorothiazide (Hydrodiuril) 25 mg DAILY PO Last administered on 03/19/17 08:26; Start 03/08/17 at 09:00 Polyethylene Glycol (miraLAX) 17 gm DAILY PO Last administered on 03/19/17 08: 26; Start 03/08/17 at 09:00 Tamsulosin HCl (Flomax) 0.4 mg QHS PO Last administered on 03/18/17 19:53; Start 03/08/17 at 21:00 Multivitamins/ Minerals (Preservision) 1 cap BID PO Last administered on 08:54; Start 03/08/17 at 09:00; Stop 03/16/17 at 14:50; Status DC Olanzapine (Zyprexa Zydis) 2.5 mg PRN Q2HR PRN PO ANXIETY / AGITATION Last administered on 03/13/17 03:56; Start 03/08/17 at 12:30 Mirtazapine (Remeron) 7.5 mg QHS PO Last administered on 03/11/17 18:55; Start 03/08/17 at 21:00; Stop 03/12/17 at 19:38; Status DC Melatonin 3 mg QHS PO Last administered on 03/12/17 19:35; Start 03/08/17 at 21:00; Stop 03/13/17 at 18:49; Status DC Trazodone HCl (Desyrel) 50 mg PRN QHS PRN PO INSOMNIA, MAY REPEAT X1; Start at 18:15; Stop 03/10/17 at 11:35; Status DC Ondansetron HCl (Zofran Odt) 4 mg PRN Q4HRS PRN PO NAUSEA/VOMITING; Start 03/09 at 19:45 Risperidone (Risperdal) 0.25 mg HS PO Last administered on 03/12/17 19:34; Start 03/10/17 at 21:00; Stop 03/13/17 at 18:49; Status DC Mirtazapine (Remeron) 7.5 mg QHS PO ; Start 03/10/17 at 21:00; Stop 03/10/17 at 21:00; Status DC Melatonin 3 mg HS PO Last administered on 03/11/17 20:59; Start 03/11/17 at 21 :00; Stop 03/12/17 at 16:21; Status DC Potassium Chloride (Klor-Con) 20 meq BID PO Last administered on 03/19/17 08:26 ; Start 03/12/17 at 21:00 Mirtazapine (Remeron) 15 mg QHS PO Last administered on 03/12/17 19:51; Start 03/12/17 at 21:00; Stop 03/13/17 at 03:33; Status DC Mirtazapine (Remeron) 15 mg QHS PO Last administered on 03/18/17 19:52; Start 03/13/17 at 21:00 Acetaminophen/ Codeine Phosphate (Tylenol #3) 1 tab HS PO Last administered on 03/18/17 19:52; Start 03/13/17 at 21:00 Melatonin 4.5 mg QHS PO ; Start 03/13/17 at 21:00; Stop 03/13/17 at 21:00; Status DC Buspirone HCl (Buspar) 5 mg BID PO Last administered on 03/19/17 08:26; Start 03/13/17 at 21:00 Quetiapine Fumarate (SEROquel) 25 mg HS PO Last administered on 03/15/17 19:30 ; Start 03/13/17 at 21:00; Stop 03/16/17 at 18:50; Status DC Melatonin 6 mg QHS PO Last administered on 03/18/17 19:52; Start 03/13/17 at 21 :00 Albuterol/ Ipratropium (Duoneb) 3 ml RTQID PRN NEB WHEEZING; Start 03/14/17 at 12:30 Multivitamins/ Minerals (I-Juliana) 1 tab BID PO Last administered on 03/19/17 08: 26; Start 03/16/17 at 21:00 Quetiapine Fumarate (SEROquel) 37.5 mg HS PO Last administered on 03/18/17 19: 52; Start 03/16/17 at 21:00 Active Scripts Active Reported Claritin (Loratadine) 10 Mg Tablet 10 Mg PO DAILY Vitamin B12 (Cyanocobalamin (Vitamin B-12)) 5,000 Mcg Tab.rapdis 5,000 Mcg PO DAILY Vitamin D-3 (Cholecalciferol (Vitamin D3)) 2,000 Unit Tablet 2,000 Unit PO DAILY Glucosamine-Chondroitin Cap (Glucosamine/Chondroitin Sulf A) 1 Each Capsule 1, 500 Mg PO BID Lipo-Flavonoid Plus Caplet (Bioflav,Lemon/Vit Bcomp&C) 1 Each Tablet 1 Each PO BID Preservision Areds Softgel (Vit A/Vit C/Vit E/Zinc/Copper) 1 Each Capsule 1 Each PO BID Polyethylene Glycol 3350 17 Gm Powd.pack 17 Gm PO DAILY Tylenol With Codeine #3 Tablet (Acetaminophen With Codeine) 1 Each Tablet 1 Tab PO PRN Q6HRS PRN Quetiapine Fumarate 25 Mg Tablet 25 Mg PO QHS Donepezil Hcl 5 Mg Tablet 5 Mg PO QHS Risperdal (Risperidone) 0.25 Mg Tablet 0.25 Mg PO BID Escitalopram Oxalate 10 Mg Tablet 10 Mg PO DAILY Tamsulosin Hcl 0.4 Mg Cap.er.24h 0.4 Mg PO QHS Potassium Chloride 20 Meq Tablet.er 30 Meq PO BID Hydrochlorothiazide Tablet (Hydrochlorothiazide) 25 Mg Tablet 25 Mg PO DAILY Diagnosis: Problems: (1) Anxiety disorder (2) Dementia in Alzheimer's disease with delusions (3) Dementia in Alzheimer's disease with depression (4) Dementia, vascular, with delusions (5) Dementia, vascular, with depression (6) Impulse control disorder RASHMI NEGRON MD March 19, 2017 19:05
[2017-03-19] MEDS: ACETAMINOPHEN/CODEINE 300/30MG TABLET PO SCH (20:08)
[2017-03-19] MEDS: MELATONIN 3 MG TABLET PO SCH (20:08)
[2017-03-19] MEDS: MIRTAZAPINE 15 MG TABLET PO SCH (20:08)
[2017-03-19] MEDS: TAMSULOSIN 0.4 MG CAP.ER.24H. PO SCH (20:09)
[2017-03-19] MEDS: QUEtiapine 25 MG TABLET. PO SCH (20:09)
[2017-03-19] MEDS: DONEPEZIL HCL 5 MG TABLET. PO SCH (20:09)
--- NOTE | 2017-03-20 03:09 | NUR ---
Behavior Intervention Response and Plan: BIRP Note: Behavior: Assumed Care of patient, patient located in Day Room at shift change. Patient exhibited the following behavior Calm, Compliant, Cooperative. Brief assessment on rounds of vital signs, medication needs, lab studies, and pain. Treatment plan problems Dementia with BD and Fall Risk. Intervention: Patient assessed and the following interventions initiated safety checks 15 Minute Checks Cognitive Assessment , Head to toe Assessment , Medications. Response: After interactions and interventions patient responded in the following manner, Calm, Cooperative ,Compliant. Continue to assess behaviors and condition will continue to monitor throughout the shift as needed. Plan: Continue to monitor Master Treatment Plan for patient's progress toward short term goals of Medication Compliance, Decreased Aggression, assisted goals to return to previous living setting vs placement. Continue to assess patient for changes in above assessment. Monitor for medication needs, pain, and safety concerns. Hourly rounding performed to ensure safe environment.
[2017-03-20 06:32] VITALS: BP 164/87
[2017-03-20] MEDS: busPIRone 5 MG TABLET. PO SCH ×2 (09:11→19:48)
[2017-03-20] MEDS: GLUCOSAMINE/CHOND 500/400MG CAPSULE PO SCH ×2 (09:11→19:47)
[2017-03-20] MEDS: hydroCHLOROthiazide 25 MG TABLET PO SCH (09:11)
[2017-03-20] MEDS: MULTIVITAMIN I-VITE TABLET. PO SCH ×2 (09:11→19:48)
[2017-03-20] MEDS: ESCITALOPRAM 10 MG TABLET. PO SCH (09:12)
[2017-03-20] MEDS: POTASSIUM CHLORIDE 20 MEQ TABLET.ER. PO SCH ×2 (09:12→19:48)
[2017-03-20] MEDS: POLYETHYLENE GLYCOL 3350 17 GM PACKET. PO SCH (09:12)
--- NOTE | 2017-03-20 11:01 | NUR ---
Behavior Intervention Response and Plan: BIRP Note: Behavior: Assumed Care of patient, patient located in Patient Room at shift change. Patient exhibited the following behavior calm, cooperative, [place], and confused. Brief assessment on rounds of vital signs, medication needs, lab studies, and pain. Treatment plan problems . Intervention: Patient assessed and the following interventions initiated safety checks Cognitive Assessment , Head to toe Assessment , Medications. Response: After interactions and interventions patient responded in the following manner, calm, cooperative, and confused. Continue to assess behaviors and condition will continue to monitor throughout the shift as needed. Plan: Continue to monitor Master Treatment Plan for patient's progress toward short term goals of Decreased Agitation, Decreased Aggression, fci goals to return to previous living setting vs placement. Continue to assess patient for changes in above assessment. Monitor for medication needs, pain, and safety concerns. Hourly rounding performed to ensure safe environment.
[2017-03-20 15:39] VITALS: BP 143/68
--- NOTE | 2017-03-20 19:01 | PN ---
DATE: 03/18/2017 PSYCHIATRIC PROGRESS NOTE This is late entry of 03/18/2017, covers elements not covered in my initial note. SUBJECTIVE: The patient slept 6 hours previous night, has short-term memory deficits, very pleasant, per nursing report, ambulates with a walker, hard of hearing. REVIEW OF SYSTEMS: No CV, , pulmonary, eye system symptoms on review. MENTAL STATUS EXAMINATION: Oriented to himself. Insight, judgment, recent memory is impaired. Language function intact. Mood and affect is improved. No clear psychotic symptoms, less paranoid. IMPRESSION: Unchanged from initial note. PLAN: Continue current psychotropics, Seroquel, Aricept, Lexapro, Remeron, melatonin, BuSpar, along with Zyprexa p.r.n. MAN Luiz NEGRON MD DR: MARIA T/kofi JOB#: [id number] / [id number]
--- NOTE | 2017-03-20 19:28 | PN ---
DATE: 03/19/2017 PSYCHIATRIC PROGRESS NOTE This is late entry of 03/19/2017, covers elements not covered in my initial note. SUBJECTIVE: Overall, the patient slept 6-1/2 hours, did well at night, 7:30 in the morning he was a little agitated, but quickly redirected, somewhat withdrawn at times. I met with his on 03/19/2017, discussed the patient's diagnosis, discharge plans, transition possibly to [facility]. He seems a little more oriented at times and knew the month correctly. REVIEW OF SYSTEMS: Hard of hearing, impaired ambulation with a walker. No CV, , pulmonary, eye system symptoms on review. MENTAL STATUS EXAMINATION: Oriented to himself. Speech is coherent, abstraction fair, computation impaired, language function intact. Mood and affect showing improvement. No suicidal or homicidal ideation. IMPRESSION: Unchanged from initial note. PLAN: Continue psychotropics. Adjust as clinically indicated. MAN Luiz NEGRON MD DR: MARIA T/kofi JOB#: [id number] / [id number]
--- NOTE | 2017-03-20 19:44 | PDOC ---
Exam Earle Demential Exam: Earle Note: Please also refer to the separate dictated note~for this date of service dictated separately.~Patient seen individually. Discussed the patient with Nursing staff reviewed the chart.~Reviewed interim history and current functioning. Reviewed vital signs,~Labs/ Radiology~and current medications noted below. Continue current treatment with the changes noted in the dictated addendum note Assessment: Vital Signs: Vital Signs Date Time Temp Pulse Resp B/P (MAP) Pulse Ox O2 Delivery O2 Flow Rate FiO2 03/20/17 15:39 98.2 74 20 143/68 (93) 97 03/19/17 21:59 Room Air I&O Intake and Output 03/20/17 07:00 Intake Total 600 ml Balance 600 ml Intake Oral 600 ml # Voids 1 Current Medications: Meds: Current Medications Lactated Ringer's 1,000 ml @ 1,000 mls/hr Q1H IV Last administered on 18:12; Start 03/07/17 at 18:00; Stop 03/07/17 at 23:12; Status DC Diphenhydramine HCl (Benadryl) 50 mg 1X ONCE IVP Last administered on 18:14; Start 03/07/17 at 18:15; Stop 03/07/17 at 18:16; Status DC Lorazepam (Ativan) 2 mg 1X ONCE IV Last administered on 03/07/17 18:19; Start 03/07/17 at 18:15; Stop 03/07/17 at 18:16; Status DC Haloperidol Lactate (Haldol) 5 mg 1X ONCE IVP ; Start 03/07/17 at 18:15; Stop 03/07/17 at 23:16; Status DC Iohexol (Omnipaque 300 Mg/ml) 75 ml 1X ONCE IV Last administered on 03/07/17 19:08; Start 03/07/17 at 19:15; Stop 03/07/17 at 19:16; Status DC Ceftriaxone Sodium 1 gm/ Sodium Chloride 50 ml @ 100 mls/hr 1X ONCE IV ; Start 03/07/17 at 20:30; Stop 03/07/17 at 20:59; Status Cancel Azithromycin (Zithromax) 500 mg 1X ONCE PO ; Start 03/07/17 at 20:30; Stop at 20:31; Status Cancel Ceftriaxone Sodium 1 gm/ Sodium Chloride 50 ml @ 100 mls/hr 1X ONCE IV ; Start 03/07/17 at 21:00; Stop 03/07/17 at 23:12; Status DC Azithromycin (Zithromax) 500 mg 1X ONCE PO Last administered on 03/07/17 20: 51; Start 03/07/17 at 21:00; Stop 03/07/17 at 21:01; Status DC Azithromycin (Zithromax) 250 mg DAILY06 PO Last administered on 03/15/17 05:29 ; Start 03/08/17 at 06:00; Stop 03/15/17 at 09:25; Status DC Ceftriaxone Sodium (Rocephin Im) 1 gm DAILY IM Last administered on 03/14/17 09 :45; Start 03/08/17 at 09:00; Stop 03/15/17 at 09:25; Status DC Albuterol/ Ipratropium (Duoneb) 3 ml RTQID NEB Last administered on 03/14/17 11 :32; Start 03/07/17 at 21:00; Stop 03/14/17 at 12:15; Status DC Sodium Chloride 50 ml @ As Directed STK-MED ONCE .ROUTE ; Start 03/07/17 at 20: 55; Stop 03/07/17 at 23:12; Status DC Ceftriaxone Sodium (Rocephin) 1 gm STK-MED ONCE IV ; Start 03/07/17 at 20:55; Stop 03/07/17 at 20:56; Status DC Donepezil HCl (Aricept) 5 mg QHS PO Last administered on 03/19/17 20:09; Start 03/08/17 at 21:00 Escitalopram Oxalate (Lexapro) 10 mg DAILY PO Last administered on 03/20/17 09: 12; Start 03/08/17 at 09:00 Quetiapine Fumarate (SEROquel) 25 mg QHS PO Last administered on 03/08/17 21: 09; Start 03/08/17 at 21:00; Stop 03/09/17 at 18:11; Status DC Risperidone (Risperdal) 0.25 mg BID PO Last administered on 03/10/17 09:10; Start 03/08/17 at 09:00; Stop 03/10/17 at 21:00; Status DC Non-Formulary Medication 1 each BID PO ; Start 03/08/17 at 09:00; Stop 03/08/17 at 09:00; Status DC Vitamin D (Vitamin D3) 2,000 unit DAILY PO ; Start 03/08/17 at 09:00; Stop 03/08 at 09:00; Status DC Cyanocobalamin (Vitamin B-12) 5,000 mcg DAILY PO ; Start 03/08/17 at 09:00; Stop 03/08/17 at 09:00; Status DC Cetirizine HCl (Zyrtec) 10 mg DAILY PO ; Start 03/08/17 at 09:00; Stop 03/08/17 at 09:00; Status DC Potassium Chloride (Klor-Con) 30 meq BIDWMEALS PO ; Start 03/08/17 at 08:00; Stop 03/08/17 at 08:00; Status DC Acetaminophen/ Codeine Phosphate (Tylenol #3) 1 tab PRN Q6HRS PRN PO PAIN Last administered on 03/13/17 15:00; Start 03/08/17 at 08:45 Glucosamine/ Chondroitin (Glucosamine-Chondroitin 500/400mg) 1 cap BID PO Last administered on 03/20/17 09:11; Start 03/08/17 at 09:00 Hydrochlorothiazide (Hydrodiuril) 25 mg DAILY PO Last administered on 03/20/17 09:11; Start 03/08/17 at 09:00 Polyethylene Glycol (miraLAX) 17 gm DAILY PO Last administered on 03/20/17 09: 12; Start 03/08/17 at 09:00 Tamsulosin HCl (Flomax) 0.4 mg QHS PO Last administered on 03/19/17 20:09; Start 03/08/17 at 21:00 Multivitamins/ Minerals (Preservision) 1 cap BID PO Last administered on 08:54; Start 03/08/17 at 09:00; Stop 03/16/17 at 14:50; Status DC Olanzapine (Zyprexa Zydis) 2.5 mg PRN Q2HR PRN PO ANXIETY / AGITATION Last administered on 03/13/17 03:56; Start 03/08/17 at 12:30 Mirtazapine (Remeron) 7.5 mg QHS PO Last administered on 03/11/17 18:55; Start 03/08/17 at 21:00; Stop 03/12/17 at 19:38; Status DC Melatonin 3 mg QHS PO Last administered on 03/12/17 19:35; Start 03/08/17 at 21:00; Stop 03/13/17 at 18:49; Status DC Trazodone HCl (Desyrel) 50 mg PRN QHS PRN PO INSOMNIA, MAY REPEAT X1; Start at 18:15; Stop 03/10/17 at 11:35; Status DC Ondansetron HCl (Zofran Odt) 4 mg PRN Q4HRS PRN PO NAUSEA/VOMITING; Start 03/09 at 19:45 Risperidone (Risperdal) 0.25 mg HS PO Last administered on 03/12/17 19:34; Start 03/10/17 at 21:00; Stop 03/13/17 at 18:49; Status DC Mirtazapine (Remeron) 7.5 mg QHS PO ; Start 03/10/17 at 21:00; Stop 03/10/17 at 21:00; Status DC Melatonin 3 mg HS PO Last administered on 03/11/17 20:59; Start 03/11/17 at 21 :00; Stop 03/12/17 at 16:21; Status DC Potassium Chloride (Klor-Con) 20 meq BID PO Last administered on 03/20/17 09:12 ; Start 03/12/17 at 21:00 Mirtazapine (Remeron) 15 mg QHS PO Last administered on 03/12/17 19:51; Start 03/12/17 at 21:00; Stop 03/13/17 at 03:33; Status DC Mirtazapine (Remeron) 15 mg QHS PO Last administered on 03/19/17 20:08; Start 03/13/17 at 21:00 Acetaminophen/ Codeine Phosphate (Tylenol #3) 1 tab HS PO Last administered on 03/19/17 20:08; Start 03/13/17 at 21:00 Melatonin 4.5 mg QHS PO ; Start 03/13/17 at 21:00; Stop 03/13/17 at 21:00; Status DC Buspirone HCl (Buspar) 5 mg BID PO Last administered on 03/20/17 09:11; Start 03/13/17 at 21:00 Quetiapine Fumarate (SEROquel) 25 mg HS PO Last administered on 03/15/17 19:30 ; Start 03/13/17 at 21:00; Stop 03/16/17 at 18:50; Status DC Melatonin 6 mg QHS PO Last administered on 03/19/17 20:08; Start 03/13/17 at 21 :00 Albuterol/ Ipratropium (Duoneb) 3 ml RTQID PRN NEB WHEEZING; Start 03/14/17 at 12:30 Multivitamins/ Minerals (I-Juliana) 1 tab BID PO Last administered on 03/20/17 09: 11; Start 03/16/17 at 21:00 Quetiapine Fumarate (SEROquel) 37.5 mg HS PO Last administered on 03/19/17 20: 09; Start 03/16/17 at 21:00 Active Scripts Active Reported Claritin (Loratadine) 10 Mg Tablet 10 Mg PO DAILY Vitamin B12 (Cyanocobalamin (Vitamin B-12)) 5,000 Mcg Tab.rapdis 5,000 Mcg PO DAILY Vitamin D-3 (Cholecalciferol (Vitamin D3)) 2,000 Unit Tablet 2,000 Unit PO DAILY Glucosamine-Chondroitin Cap (Glucosamine/Chondroitin Sulf A) 1 Each Capsule 1, 500 Mg PO BID Lipo-Flavonoid Plus Caplet (Bioflav,Lemon/Vit Bcomp&C) 1 Each Tablet 1 Each PO BID Preservision Areds Softgel (Vit A/Vit C/Vit E/Zinc/Copper) 1 Each Capsule 1 Each PO BID Polyethylene Glycol 3350 17 Gm Powd.pack 17 Gm PO DAILY Tylenol With Codeine #3 Tablet (Acetaminophen With Codeine) 1 Each Tablet 1 Tab PO PRN Q6HRS PRN Quetiapine Fumarate 25 Mg Tablet 25 Mg PO QHS Donepezil Hcl 5 Mg Tablet 5 Mg PO QHS Risperdal (Risperidone) 0.25 Mg Tablet 0.25 Mg PO BID Escitalopram Oxalate 10 Mg Tablet 10 Mg PO DAILY Tamsulosin Hcl 0.4 Mg Cap.er.24h 0.4 Mg PO QHS Potassium Chloride 20 Meq Tablet.er 30 Meq PO BID Hydrochlorothiazide Tablet (Hydrochlorothiazide) 25 Mg Tablet 25 Mg PO DAILY Diagnosis: Problems: (1) Anxiety disorder (2) Dementia in Alzheimer's disease with delusions (3) Dementia in Alzheimer's disease with depression (4) Dementia, vascular, with delusions (5) Dementia, vascular, with depression (6) Impulse control disorder RASHMI NEGRON MD March 20, 2017 19:43
[2017-03-20] MEDS: QUEtiapine 25 MG TABLET. PO SCH (19:47)
[2017-03-20] MEDS: TAMSULOSIN 0.4 MG CAP.ER.24H. PO SCH (19:47)
[2017-03-20] MEDS: MELATONIN 3 MG TABLET PO SCH (19:47)
[2017-03-20] MEDS: MIRTAZAPINE 15 MG TABLET PO SCH (19:48)
[2017-03-20] MEDS: DONEPEZIL HCL 5 MG TABLET. PO SCH (19:48)
[2017-03-20] MEDS: ACETAMINOPHEN/CODEINE 300/30MG TABLET PO SCH (19:48)
--- NOTE | 2017-03-20 22:52 | NUR ---
Behavior Intervention Response and Plan: BIRP Note: Behavior: Assumed Care of patient, patient located in Day Room at shift change. Patient exhibited the following behavior Calm, Compliant, Cooperative. Brief assessment on rounds of vital signs, medication needs, lab studies, and pain. Treatment plan problems Dementia with BD and Fall Risk. Intervention: Patient assessed and the following interventions initiated safety checks 15 Minute Checks Cognitive Assessment , Head to toe Assessment , Medications. Response: After interactions and interventions patient responded in the following manner, Calm, Cooperative ,Compliant. Continue to assess behaviors and condition will continue to monitor throughout the shift as needed. Plan: Continue to monitor Master Treatment Plan for patient's progress toward short term goals of Medication Compliance, Decreased Aggression, longterm goals to return to previous living setting vs placement. Continue to assess patient for changes in above assessment. Monitor for medication needs, pain, and safety concerns. Hourly rounding performed to ensure safe environment.
[2017-03-21 06:46] VITALS: BP 166/79
[2017-03-21] MEDS: hydroCHLOROthiazide 25 MG TABLET PO SCH (08:09)
[2017-03-21] MEDS: ESCITALOPRAM 10 MG TABLET. PO SCH (08:09)
[2017-03-21] MEDS: MULTIVITAMIN I-VITE TABLET. PO SCH ×2 (08:09→19:22)
[2017-03-21] MEDS: GLUCOSAMINE/CHOND 500/400MG CAPSULE PO SCH ×2 (08:09→19:22)
[2017-03-21] MEDS: busPIRone 5 MG TABLET. PO SCH ×2 (08:09→19:24)
[2017-03-21] MEDS: POTASSIUM CHLORIDE 20 MEQ TABLET.ER. PO SCH ×2 (08:09→19:23)
[2017-03-21] MEDS: POLYETHYLENE GLYCOL 3350 17 GM PACKET. PO SCH (08:10)
--- NOTE | 2017-03-21 09:46 | NUR ---
SW left message for Admissions at [facility] to follow up on resubmit for admissions late last week. SW also faxed admit referral to all other [facility] facilities in the area: [facility], [facility], [facility], [facility], [facility] and [place].
--- NOTE | 2017-03-21 10:05 | NUR ---
Behavior Intervention Response and Plan: BIRP Note: Behavior: Assumed Care of patient, patient located in Patient Room at shift change. Patient exhibited the following behavior calm, cooperative, [place], appropriate. Brief assessment on rounds of vital signs, medication needs, lab studies, and pain. Treatment plan problems . Intervention: Patient assessed and the following interventions initiated safety checks Cognitive Assessment , Head to toe Assessment , Medications. Response: After interactions and interventions patient responded in the following manner, calm, cooperative, appropriate, and confused. Continue to assess behaviors and condition will continue to monitor throughout the shift as needed. 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 Continue to assess patient for changes in above assessment. Monitor for medication needs, pain, and safety concerns. Hourly rounding performed to ensure safe environment.
--- NOTE | 2017-03-21 10:28 | NUR ---
SW received call back from [facility] stating they would be unable to meet PT's needs. SW inquired to specifics and facility stated they didn't feel Pt's "sundowning" would be a good fit for the current residents.
[2017-03-21 16:05] VITALS: BP 129/75
[2017-03-21] MEDS: MELATONIN 3 MG TABLET PO SCH (19:22)
[2017-03-21] MEDS: MIRTAZAPINE 15 MG TABLET PO SCH (19:22)
[2017-03-21] MEDS: TAMSULOSIN 0.4 MG CAP.ER.24H. PO SCH (19:22)
[2017-03-21] MEDS: QUEtiapine 25 MG TABLET. PO SCH (19:23)
[2017-03-21] MEDS: DONEPEZIL HCL 5 MG TABLET. PO SCH (19:23)
[2017-03-21] MEDS: ACETAMINOPHEN/CODEINE 300/30MG TABLET PO SCH (19:25)
--- NOTE | 2017-03-21 19:59 | PDOC ---
Exam Earle Demential Exam: Earle Note: Please also refer to the separate dictated note~for this date of service dictated separately.~Patient seen individually. Discussed the patient with Nursing staff reviewed the chart.~Reviewed interim history and current functioning. Reviewed vital signs,~Labs/ Radiology~and current medications noted below. Continue current treatment with the changes noted in the dictated addendum note Assessment: Vital Signs: Vital Signs Date Time Temp Pulse Resp B/P (MAP) Pulse Ox O2 Delivery O2 Flow Rate FiO2 03/21/17 19:25 18 93 Room Air 03/21/17 16:05 98.4 62 129/75 (93) I&O Intake and Output 03/21/17 07:00 Intake Total 660 ml Balance 660 ml Intake Oral 660 ml Current Medications: Meds: Current Medications Lactated Ringer's 1,000 ml @ 1,000 mls/hr Q1H IV Last administered on 18:12; Start 03/07/17 at 18:00; Stop 03/07/17 at 23:12; Status DC Diphenhydramine HCl (Benadryl) 50 mg 1X ONCE IVP Last administered on 18:14; Start 03/07/17 at 18:15; Stop 03/07/17 at 18:16; Status DC Lorazepam (Ativan) 2 mg 1X ONCE IV Last administered on 03/07/17 18:19; Start 03/07/17 at 18:15; Stop 03/07/17 at 18:16; Status DC Haloperidol Lactate (Haldol) 5 mg 1X ONCE IVP ; Start 03/07/17 at 18:15; Stop 03/07/17 at 23:16; Status DC Iohexol (Omnipaque 300 Mg/ml) 75 ml 1X ONCE IV Last administered on 03/07/17 19:08; Start 03/07/17 at 19:15; Stop 03/07/17 at 19:16; Status DC Ceftriaxone Sodium 1 gm/ Sodium Chloride 50 ml @ 100 mls/hr 1X ONCE IV ; Start 03/07/17 at 20:30; Stop 03/07/17 at 20:59; Status Cancel Azithromycin (Zithromax) 500 mg 1X ONCE PO ; Start 03/07/17 at 20:30; Stop at 20:31; Status Cancel Ceftriaxone Sodium 1 gm/ Sodium Chloride 50 ml @ 100 mls/hr 1X ONCE IV ; Start 03/07/17 at 21:00; Stop 03/07/17 at 23:12; Status DC Azithromycin (Zithromax) 500 mg 1X ONCE PO Last administered on 03/07/17 20: 51; Start 03/07/17 at 21:00; Stop 03/07/17 at 21:01; Status DC Azithromycin (Zithromax) 250 mg DAILY06 PO Last administered on 03/15/17 05:29 ; Start 03/08/17 at 06:00; Stop 03/15/17 at 09:25; Status DC Ceftriaxone Sodium (Rocephin Im) 1 gm DAILY IM Last administered on 03/14/17 09 :45; Start 03/08/17 at 09:00; Stop 03/15/17 at 09:25; Status DC Albuterol/ Ipratropium (Duoneb) 3 ml RTQID NEB Last administered on 03/14/17 11 :32; Start 03/07/17 at 21:00; Stop 03/14/17 at 12:15; Status DC Sodium Chloride 50 ml @ As Directed STK-MED ONCE .ROUTE ; Start 03/07/17 at 20: 55; Stop 03/07/17 at 23:12; Status DC Ceftriaxone Sodium (Rocephin) 1 gm STK-MED ONCE IV ; Start 03/07/17 at 20:55; Stop 03/07/17 at 20:56; Status DC Donepezil HCl (Aricept) 5 mg QHS PO Last administered on 03/21/17 19:23; Start 03/08/17 at 21:00 Escitalopram Oxalate (Lexapro) 10 mg DAILY PO Last administered on 03/21/17 08: 09; Start 03/08/17 at 09:00 Quetiapine Fumarate (SEROquel) 25 mg QHS PO Last administered on 03/08/17 21: 09; Start 03/08/17 at 21:00; Stop 03/09/17 at 18:11; Status DC Risperidone (Risperdal) 0.25 mg BID PO Last administered on 03/10/17 09:10; Start 03/08/17 at 09:00; Stop 03/10/17 at 21:00; Status DC Non-Formulary Medication 1 each BID PO ; Start 03/08/17 at 09:00; Stop 03/08/17 at 09:00; Status DC Vitamin D (Vitamin D3) 2,000 unit DAILY PO ; Start 03/08/17 at 09:00; Stop 03/08 at 09:00; Status DC Cyanocobalamin (Vitamin B-12) 5,000 mcg DAILY PO ; Start 03/08/17 at 09:00; Stop 03/08/17 at 09:00; Status DC Cetirizine HCl (Zyrtec) 10 mg DAILY PO ; Start 03/08/17 at 09:00; Stop 03/08/17 at 09:00; Status DC Potassium Chloride (Klor-Con) 30 meq BIDWMEALS PO ; Start 03/08/17 at 08:00; Stop 03/08/17 at 08:00; Status DC Acetaminophen/ Codeine Phosphate (Tylenol #3) 1 tab PRN Q6HRS PRN PO PAIN Last administered on 03/13/17 15:00; Start 03/08/17 at 08:45 Glucosamine/ Chondroitin (Glucosamine-Chondroitin 500/400mg) 1 cap BID PO Last administered on 03/21/17 19:22; Start 03/08/17 at 09:00 Hydrochlorothiazide (Hydrodiuril) 25 mg DAILY PO Last administered on 03/21/17 08:09; Start 03/08/17 at 09:00 Polyethylene Glycol (miraLAX) 17 gm DAILY PO Last administered on 03/21/17 08: 10; Start 03/08/17 at 09:00 Tamsulosin HCl (Flomax) 0.4 mg QHS PO Last administered on 03/21/17 19:22; Start 03/08/17 at 21:00 Multivitamins/ Minerals (Preservision) 1 cap BID PO Last administered on 08:54; Start 03/08/17 at 09:00; Stop 03/16/17 at 14:50; Status DC Olanzapine (Zyprexa Zydis) 2.5 mg PRN Q2HR PRN PO ANXIETY / AGITATION Last administered on 03/13/17 03:56; Start 03/08/17 at 12:30 Mirtazapine (Remeron) 7.5 mg QHS PO Last administered on 03/11/17 18:55; Start 03/08/17 at 21:00; Stop 03/12/17 at 19:38; Status DC Melatonin 3 mg QHS PO Last administered on 03/12/17 19:35; Start 03/08/17 at 21:00; Stop 03/13/17 at 18:49; Status DC Trazodone HCl (Desyrel) 50 mg PRN QHS PRN PO INSOMNIA, MAY REPEAT X1; Start at 18:15; Stop 03/10/17 at 11:35; Status DC Ondansetron HCl (Zofran Odt) 4 mg PRN Q4HRS PRN PO NAUSEA/VOMITING; Start 03/09 at 19:45 Risperidone (Risperdal) 0.25 mg HS PO Last administered on 03/12/17 19:34; Start 03/10/17 at 21:00; Stop 03/13/17 at 18:49; Status DC Mirtazapine (Remeron) 7.5 mg QHS PO ; Start 03/10/17 at 21:00; Stop 03/10/17 at 21:00; Status DC Melatonin 3 mg HS PO Last administered on 03/11/17 20:59; Start 03/11/17 at 21 :00; Stop 03/12/17 at 16:21; Status DC Potassium Chloride (Klor-Con) 20 meq BID PO Last administered on 03/21/17 19:23 ; Start 03/12/17 at 21:00 Mirtazapine (Remeron) 15 mg QHS PO Last administered on 03/12/17 19:51; Start 03/12/17 at 21:00; Stop 03/13/17 at 03:33; Status DC Mirtazapine (Remeron) 15 mg QHS PO Last administered on 03/21/17 19:22; Start 03/13/17 at 21:00 Acetaminophen/ Codeine Phosphate (Tylenol #3) 1 tab HS PO Last administered on 03/21/17 19:25; Start 03/13/17 at 21:00 Melatonin 4.5 mg QHS PO ; Start 03/13/17 at 21:00; Stop 03/13/17 at 21:00; Status DC Buspirone HCl (Buspar) 5 mg BID PO Last administered on 03/21/17 19:24; Start 03/13/17 at 21:00 Quetiapine Fumarate (SEROquel) 25 mg HS PO Last administered on 03/15/17 19:30 ; Start 03/13/17 at 21:00; Stop 03/16/17 at 18:50; Status DC Melatonin 6 mg QHS PO Last administered on 03/21/17 19:22; Start 03/13/17 at 21 :00 Albuterol/ Ipratropium (Duoneb) 3 ml RTQID PRN NEB WHEEZING; Start 03/14/17 at 12:30 Multivitamins/ Minerals (I-Juliana) 1 tab BID PO Last administered on 03/21/17 19: 22; Start 03/16/17 at 21:00 Quetiapine Fumarate (SEROquel) 37.5 mg HS PO Last administered on 03/21/17 19: 23; Start 03/16/17 at 21:00 Active Scripts Active Reported Claritin (Loratadine) 10 Mg Tablet 10 Mg PO DAILY Vitamin B12 (Cyanocobalamin (Vitamin B-12)) 5,000 Mcg Tab.rapdis 5,000 Mcg PO DAILY Vitamin D-3 (Cholecalciferol (Vitamin D3)) 2,000 Unit Tablet 2,000 Unit PO DAILY Glucosamine-Chondroitin Cap (Glucosamine/Chondroitin Sulf A) 1 Each Capsule 1, 500 Mg PO BID Lipo-Flavonoid Plus Caplet (Bioflav,Lemon/Vit Bcomp&C) 1 Each Tablet 1 Each PO BID Preservision Areds Softgel (Vit A/Vit C/Vit E/Zinc/Copper) 1 Each Capsule 1 Each PO BID Polyethylene Glycol 3350 17 Gm Powd.pack 17 Gm PO DAILY Tylenol With Codeine #3 Tablet (Acetaminophen With Codeine) 1 Each Tablet 1 Tab PO PRN Q6HRS PRN Quetiapine Fumarate 25 Mg Tablet 25 Mg PO QHS Donepezil Hcl 5 Mg Tablet 5 Mg PO QHS Risperdal (Risperidone) 0.25 Mg Tablet 0.25 Mg PO BID Escitalopram Oxalate 10 Mg Tablet 10 Mg PO DAILY Tamsulosin Hcl 0.4 Mg Cap.er.24h 0.4 Mg PO QHS Potassium Chloride 20 Meq Tablet.er 30 Meq PO BID Hydrochlorothiazide Tablet (Hydrochlorothiazide) 25 Mg Tablet 25 Mg PO DAILY Diagnosis: Problems: (1) Anxiety disorder (2) Dementia in Alzheimer's disease with delusions (3) Dementia in Alzheimer's disease with depression (4) Dementia, vascular, with delusions (5) Dementia, vascular, with depression (6) Impulse control disorder RASHMI NEGRON MD March 21, 2017 19:59
--- NOTE | 2017-03-21 23:29 | NUR ---
Behavior Intervention Response and Plan: BIRP Note: Behavior: Assumed Care of patient, patient located in Patient Room at shift change. Patient exhibited the following behavior Calm, Cooperative, Appropriate. Brief assessment on rounds of vital signs, medication needs, lab studies, and pain. Treatment plan problems 1 and 2. Intervention: Patient assessed and the following interventions initiated safety checks 15 Minute Checks Cognitive Assessment , Head to toe Assessment , Medications. Response: After interactions and interventions patient responded in the following manner, Calm , Compliant ,Cooperative. Continue to assess behaviors and condition will continue to monitor throughout the shift as needed. Plan: Continue to monitor Master Treatment Plan for patient's progress toward short term goals of Decreased Agitation, Decreased Aggression, correction goals to return to previous living setting vs placement. Continue to assess patient for changes in above assessment. Monitor for medication needs, pain, and safety concerns. Hourly rounding performed to ensure safe environment.
--- NOTE | 2017-03-22 00:26 | PN ---
DATE: 03/20/2017 PSYCHIATRIC PROGRESS NOTE This is a late entry of 03/20/2017 covers elements not covered in my initial note. SUBJECTIVE: The patient has had a good sense of humor per nursing report, had a good night, less labile in his mood. REVIEW OF SYSTEMS: Hard of hearing. No CV, , pulmonary, eye, ENT system symptoms on review. Reliability poor. MENTAL STATUS EXAM: Oriented to himself and situation. Speech coherent, abstraction fair, computation impaired, language function intact, attention span short, mood and affect, lability is improved. DIAGNOSIS: Mentioned in my initial note. PLAN: Continue current psychotropics mentioned in my initial note. Adjust further as clinically indicated. MAN Luiz NEGRON MD DR: MARIA T/kofi JOB#: [id number] / [id number]
[2017-03-22 05:56] VITALS: BP 170/79
[2017-03-22] MEDS: POLYETHYLENE GLYCOL 3350 17 GM PACKET. PO SCH (08:53)
[2017-03-22] MEDS: busPIRone 5 MG TABLET. PO SCH ×2 (08:53→19:10)
[2017-03-22] MEDS: GLUCOSAMINE/CHOND 500/400MG CAPSULE PO SCH ×2 (08:53→19:12)
[2017-03-22] MEDS: MULTIVITAMIN I-VITE TABLET. PO SCH ×2 (08:54→19:12)
[2017-03-22] MEDS: hydroCHLOROthiazide 25 MG TABLET PO SCH (08:54)
[2017-03-22] MEDS: ESCITALOPRAM 10 MG TABLET. PO SCH (08:54)
[2017-03-22] MEDS: POTASSIUM CHLORIDE 20 MEQ TABLET.ER. PO SCH ×2 (08:54→19:12)
--- NOTE | 2017-03-22 09:48 | NUR ---
Behavior Intervention Response and Plan: BIRP Note: Behavior: Assumed Care of patient, patient located in Day Room at shift change. Patient exhibited the following behavior Withdrawn, Calm, Compliant. Brief assessment on rounds of vital signs, medication needs, lab studies, and pain. Treatment plan problems 1 amd 2. Intervention: Patient assessed and the following interventions initiated safety checks 15 Minute Checks Cognitive Assessment , Head to toe Assessment , Medications. Response: After interactions and interventions patient responded in the following manner, Calm , Compliant ,Cooperative. Continue to assess behaviors and condition will continue to monitor throughout the shift as needed. 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 Continue to assess patient for changes in above assessment. Monitor for medication needs, pain, and safety concerns. Hourly rounding performed to ensure safe environment.
[2017-03-22 14:43] VITALS: BP 105/59
[2017-03-22] MEDS: ACETAMINOPHEN/CODEINE 300/30MG TABLET PO SCH (19:10)
[2017-03-22] MEDS: DONEPEZIL HCL 5 MG TABLET. PO SCH (19:11)
[2017-03-22] MEDS: QUEtiapine 25 MG TABLET. PO SCH (19:11)
[2017-03-22] MEDS: MELATONIN 3 MG TABLET PO SCH (19:11)
[2017-03-22] MEDS: TAMSULOSIN 0.4 MG CAP.ER.24H. PO SCH (19:12)
[2017-03-22] MEDS: MIRTAZAPINE 15 MG TABLET PO SCH (19:12)
--- NOTE | 2017-03-22 20:59 | PDOC ---
Exam Earle Demential Exam: Earle Note: Please also refer to the separate dictated note~for this date of service dictated separately.~Patient seen individually. Discussed the patient with Nursing staff reviewed the chart.~Reviewed interim history and current functioning. Reviewed vital signs,~Labs/ Radiology~and current medications noted below. Continue current treatment with the changes noted in the dictated addendum note Assessment: Vital Signs: Vital Signs Date Time Temp Pulse Resp B/P (MAP) Pulse Ox O2 Delivery O2 Flow Rate FiO2 03/22/17 20:10 18 98 Room Air 03/22/17 14:43 98.3 61 105/59 (74) I&O Intake and Output 03/22/17 07:00 Intake Total 1320 ml Balance 1320 ml Intake Oral 1320 ml Current Medications: Meds: Current Medications Lactated Ringer's 1,000 ml @ 1,000 mls/hr Q1H IV Last administered on 18:12; Start 03/07/17 at 18:00; Stop 03/07/17 at 23:12; Status DC Diphenhydramine HCl (Benadryl) 50 mg 1X ONCE IVP Last administered on 18:14; Start 03/07/17 at 18:15; Stop 03/07/17 at 18:16; Status DC Lorazepam (Ativan) 2 mg 1X ONCE IV Last administered on 03/07/17 18:19; Start 03/07/17 at 18:15; Stop 03/07/17 at 18:16; Status DC Haloperidol Lactate (Haldol) 5 mg 1X ONCE IVP ; Start 03/07/17 at 18:15; Stop 03/07/17 at 23:16; Status DC Iohexol (Omnipaque 300 Mg/ml) 75 ml 1X ONCE IV Last administered on 03/07/17 19:08; Start 03/07/17 at 19:15; Stop 03/07/17 at 19:16; Status DC Ceftriaxone Sodium 1 gm/ Sodium Chloride 50 ml @ 100 mls/hr 1X ONCE IV ; Start 03/07/17 at 20:30; Stop 03/07/17 at 20:59; Status Cancel Azithromycin (Zithromax) 500 mg 1X ONCE PO ; Start 03/07/17 at 20:30; Stop at 20:31; Status Cancel Ceftriaxone Sodium 1 gm/ Sodium Chloride 50 ml @ 100 mls/hr 1X ONCE IV ; Start 03/07/17 at 21:00; Stop 03/07/17 at 23:12; Status DC Azithromycin (Zithromax) 500 mg 1X ONCE PO Last administered on 03/07/17 20: 51; Start 03/07/17 at 21:00; Stop 03/07/17 at 21:01; Status DC Azithromycin (Zithromax) 250 mg DAILY06 PO Last administered on 03/15/17 05:29 ; Start 03/08/17 at 06:00; Stop 03/15/17 at 09:25; Status DC Ceftriaxone Sodium (Rocephin Im) 1 gm DAILY IM Last administered on 03/14/17 09 :45; Start 03/08/17 at 09:00; Stop 03/15/17 at 09:25; Status DC Albuterol/ Ipratropium (Duoneb) 3 ml RTQID NEB Last administered on 03/14/17 11 :32; Start 03/07/17 at 21:00; Stop 03/14/17 at 12:15; Status DC Sodium Chloride 50 ml @ As Directed STK-MED ONCE .ROUTE ; Start 03/07/17 at 20: 55; Stop 03/07/17 at 23:12; Status DC Ceftriaxone Sodium (Rocephin) 1 gm STK-MED ONCE IV ; Start 03/07/17 at 20:55; Stop 03/07/17 at 20:56; Status DC Donepezil HCl (Aricept) 5 mg QHS PO Last administered on 03/22/17 19:11; Start 03/08/17 at 21:00 Escitalopram Oxalate (Lexapro) 10 mg DAILY PO Last administered on 03/22/17 08: 54; Start 03/08/17 at 09:00 Quetiapine Fumarate (SEROquel) 25 mg QHS PO Last administered on 03/08/17 21: 09; Start 03/08/17 at 21:00; Stop 03/09/17 at 18:11; Status DC Risperidone (Risperdal) 0.25 mg BID PO Last administered on 03/10/17 09:10; Start 03/08/17 at 09:00; Stop 03/10/17 at 21:00; Status DC Non-Formulary Medication 1 each BID PO ; Start 03/08/17 at 09:00; Stop 03/08/17 at 09:00; Status DC Vitamin D (Vitamin D3) 2,000 unit DAILY PO ; Start 03/08/17 at 09:00; Stop 03/08 at 09:00; Status DC Cyanocobalamin (Vitamin B-12) 5,000 mcg DAILY PO ; Start 03/08/17 at 09:00; Stop 03/08/17 at 09:00; Status DC Cetirizine HCl (Zyrtec) 10 mg DAILY PO ; Start 03/08/17 at 09:00; Stop 03/08/17 at 09:00; Status DC Potassium Chloride (Klor-Con) 30 meq BIDWMEALS PO ; Start 03/08/17 at 08:00; Stop 03/08/17 at 08:00; Status DC Acetaminophen/ Codeine Phosphate (Tylenol #3) 1 tab PRN Q6HRS PRN PO PAIN Last administered on 03/13/17 15:00; Start 03/08/17 at 08:45 Glucosamine/ Chondroitin (Glucosamine-Chondroitin 500/400mg) 1 cap BID PO Last administered on 03/22/17 19:12; Start 03/08/17 at 09:00 Hydrochlorothiazide (Hydrodiuril) 25 mg DAILY PO Last administered on 03/22/17 08:54; Start 03/08/17 at 09:00 Polyethylene Glycol (miraLAX) 17 gm DAILY PO Last administered on 03/22/17 08: 53; Start 03/08/17 at 09:00 Tamsulosin HCl (Flomax) 0.4 mg QHS PO Last administered on 03/22/17 19:12; Start 03/08/17 at 21:00 Multivitamins/ Minerals (Preservision) 1 cap BID PO Last administered on 08:54; Start 03/08/17 at 09:00; Stop 03/16/17 at 14:50; Status DC Olanzapine (Zyprexa Zydis) 2.5 mg PRN Q2HR PRN PO ANXIETY / AGITATION Last administered on 03/13/17 03:56; Start 03/08/17 at 12:30 Mirtazapine (Remeron) 7.5 mg QHS PO Last administered on 03/11/17 18:55; Start 03/08/17 at 21:00; Stop 03/12/17 at 19:38; Status DC Melatonin 3 mg QHS PO Last administered on 03/12/17 19:35; Start 03/08/17 at 21:00; Stop 03/13/17 at 18:49; Status DC Trazodone HCl (Desyrel) 50 mg PRN QHS PRN PO INSOMNIA, MAY REPEAT X1; Start at 18:15; Stop 03/10/17 at 11:35; Status DC Ondansetron HCl (Zofran Odt) 4 mg PRN Q4HRS PRN PO NAUSEA/VOMITING; Start 03/09 at 19:45 Risperidone (Risperdal) 0.25 mg HS PO Last administered on 03/12/17 19:34; Start 03/10/17 at 21:00; Stop 03/13/17 at 18:49; Status DC Mirtazapine (Remeron) 7.5 mg QHS PO ; Start 03/10/17 at 21:00; Stop 03/10/17 at 21:00; Status DC Melatonin 3 mg HS PO Last administered on 03/11/17 20:59; Start 03/11/17 at 21 :00; Stop 03/12/17 at 16:21; Status DC Potassium Chloride (Klor-Con) 20 meq BID PO Last administered on 03/22/17 19:12 ; Start 03/12/17 at 21:00 Mirtazapine (Remeron) 15 mg QHS PO Last administered on 03/12/17 19:51; Start 03/12/17 at 21:00; Stop 03/13/17 at 03:33; Status DC Mirtazapine (Remeron) 15 mg QHS PO Last administered on 03/22/17 19:12; Start 03/13/17 at 21:00 Acetaminophen/ Codeine Phosphate (Tylenol #3) 1 tab HS PO Last administered on 03/22/17 19:10; Start 03/13/17 at 21:00 Melatonin 4.5 mg QHS PO ; Start 03/13/17 at 21:00; Stop 03/13/17 at 21:00; Status DC Buspirone HCl (Buspar) 5 mg BID PO Last administered on 03/22/17 19:10; Start 03/13/17 at 21:00 Quetiapine Fumarate (SEROquel) 25 mg HS PO Last administered on 03/15/17 19:30 ; Start 03/13/17 at 21:00; Stop 03/16/17 at 18:50; Status DC Melatonin 6 mg QHS PO Last administered on 03/22/17 19:11; Start 03/13/17 at 21 :00 Albuterol/ Ipratropium (Duoneb) 3 ml RTQID PRN NEB WHEEZING; Start 03/14/17 at 12:30 Multivitamins/ Minerals (I-Juliana) 1 tab BID PO Last administered on 03/22/17 19: 12; Start 03/16/17 at 21:00 Quetiapine Fumarate (SEROquel) 37.5 mg HS PO Last administered on 03/22/17 19: 11; Start 03/16/17 at 21:00 Active Scripts Active Reported Claritin (Loratadine) 10 Mg Tablet 10 Mg PO DAILY Vitamin B12 (Cyanocobalamin (Vitamin B-12)) 5,000 Mcg Tab.rapdis 5,000 Mcg PO DAILY Vitamin D-3 (Cholecalciferol (Vitamin D3)) 2,000 Unit Tablet 2,000 Unit PO DAILY Glucosamine-Chondroitin Cap (Glucosamine/Chondroitin Sulf A) 1 Each Capsule 1, 500 Mg PO BID Lipo-Flavonoid Plus Caplet (Bioflav,Lemon/Vit Bcomp&C) 1 Each Tablet 1 Each PO BID Preservision Areds Softgel (Vit A/Vit C/Vit E/Zinc/Copper) 1 Each Capsule 1 Each PO BID Polyethylene Glycol 3350 17 Gm Powd.pack 17 Gm PO DAILY Tylenol With Codeine #3 Tablet (Acetaminophen With Codeine) 1 Each Tablet 1 Tab PO PRN Q6HRS PRN Quetiapine Fumarate 25 Mg Tablet 25 Mg PO QHS Donepezil Hcl 5 Mg Tablet 5 Mg PO QHS Risperdal (Risperidone) 0.25 Mg Tablet 0.25 Mg PO BID Escitalopram Oxalate 10 Mg Tablet 10 Mg PO DAILY Tamsulosin Hcl 0.4 Mg Cap.er.24h 0.4 Mg PO QHS Potassium Chloride 20 Meq Tablet.er 30 Meq PO BID Hydrochlorothiazide Tablet (Hydrochlorothiazide) 25 Mg Tablet 25 Mg PO DAILY Diagnosis: Problems: (1) Anxiety disorder (2) Dementia in Alzheimer's disease with delusions (3) Dementia in Alzheimer's disease with depression (4) Dementia, vascular, with delusions (5) Dementia, vascular, with depression (6) Impulse control disorder RASHMI NEGRON MD March 22, 2017 20:59
--- NOTE | 2017-03-22 23:12 | NUR ---
Behavior Intervention Response and Plan: BIRP Note: Behavior: Assumed Care of patient, patient located in Patient Room at shift change. Patient exhibited the following behavior Calm, Withdrawn, Disorganized. Brief assessment on rounds of vital signs, medication needs, lab studies, and pain. Treatment plan problems 1 and 2. Intervention: Patient assessed and the following interventions initiated safety checks 15 Minute Checks Cognitive Assessment , Head to toe Assessment , Medications. Response: After interactions and interventions patient responded in the following manner, Calm , Compliant ,Cooperative. Continue to assess behaviors and condition will continue to monitor throughout the shift as needed. 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 Continue to assess patient for changes in above assessment. Monitor for medication needs, pain, and safety concerns. Hourly rounding performed to ensure safe environment.
--- NOTE | 2017-03-22 23:51 | PN ---
DATE: 03/21/2017 PSYCHIATRIC PROGRESS NOTE This is a late entry for 03/21/2017, covers elements not covered in my initial note. SUBJECTIVE: Overall, the patient has done better. He has not been agitated, more pleasant. Slept 5 hours previous night. REVIEW OF SYSTEMS: Hard of hearing. I had to talk loudly into his left ear. Impaired ambulation in his wheelchair. No CV, , pulmonary, eye system symptoms on review. MENTAL STATUS EXAM: Oriented to himself. Insight, judgment, recent memory is impaired. Language function intact. Attention span short. Mood and affect less withdrawn. LABORATORY DATA: Reviewed. IMPRESSION: Unchanged. PLAN: Continue current psychotropics. Discussed with social service staff. Transition to [facility] hopefully this week. MAN Luiz NEGRON MD DR: MARIA T/kofi JOB#: [id number] / [id number]
[2017-03-23 06:51] VITALS: BP 163/72
[2017-03-23] MEDS: busPIRone 5 MG TABLET. PO SCH ×2 (09:05→19:15)
[2017-03-23] MEDS: POLYETHYLENE GLYCOL 3350 17 GM PACKET. PO SCH (09:05)
[2017-03-23] MEDS: hydroCHLOROthiazide 25 MG TABLET PO SCH (09:05)
[2017-03-23] MEDS: MULTIVITAMIN I-VITE TABLET. PO SCH ×2 (09:05→19:15)
[2017-03-23] MEDS: ESCITALOPRAM 10 MG TABLET. PO SCH (09:05)
[2017-03-23] MEDS: GLUCOSAMINE/CHOND 500/400MG CAPSULE PO SCH ×2 (09:06→19:15)
[2017-03-23] MEDS: POTASSIUM CHLORIDE 20 MEQ TABLET.ER. PO SCH ×2 (09:06→19:15)
--- NOTE | 2017-03-23 09:44 | NUR ---
DAREN received message from Tory at [facility] regarding accepting Pt for new placement. They requested a copy of CARE Assessment to be faxed and to ensure they have the [place] payment contract in hand prior to admit. DAREN faxed CARE and left a message for BRET Noriega at [phone] ext [phone] regarding further admit planning. DAREN contacted Romeo, Pt's dtr to relay the admit acceptance and to advise of the next few steps before discharge. Romeo will contact to determine further admit paperwork.
--- NOTE | 2017-03-23 11:26 | NUR ---
Behavior Intervention Response and Plan: BIRP Note: Behavior: Assumed Care of patient, patient located in Patient Room at shift change. Patient exhibited the following behavior Compliant, Appropriate, Cooperative. Brief assessment on rounds of vital signs, medication needs, lab studies, and pain. Treatment plan problems 1 and 2. Intervention: Patient assessed and the following interventions initiated safety checks 15 Minute Checks Head to toe Assessment , Medications , Oral Hydration. Response: After interactions and interventions patient responded in the following manner, Calm , Interactive ,Withdrawn to room between meals. Continue to assess behaviors and condition will continue to monitor throughout the shift as needed. 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 Continue to assess patient for changes in above assessment. Monitor for medication needs, pain, and safety concerns. Hourly rounding performed to ensure safe environment.
[2017-03-23 15:51] VITALS: BP 146/79
--- NOTE | 2017-03-23 17:59 | NUR ---
pt sleeping, staff saved pt tray Addendum: 03/23/17 at 1800 by DEMOND SUTTON CNA Amended: Links added.
[2017-03-23] MEDS: MELATONIN 3 MG TABLET PO SCH (19:14)
[2017-03-23] MEDS: MIRTAZAPINE 15 MG TABLET PO SCH (19:15)
[2017-03-23] MEDS: TAMSULOSIN 0.4 MG CAP.ER.24H. PO SCH (19:15)
[2017-03-23] MEDS: QUEtiapine 25 MG TABLET. PO SCH (19:15)
[2017-03-23] MEDS: DONEPEZIL HCL 5 MG TABLET. PO SCH (19:15)
[2017-03-23] MEDS: ACETAMINOPHEN/CODEINE 300/30MG TABLET PO SCH (19:18)
--- NOTE | 2017-03-23 21:58 | PDOC ---
Exam Earle Demential Exam: Earle Note: Please also refer to the separate dictated note~for this date of service dictated separately.~Patient seen individually. Discussed the patient with Nursing staff reviewed the chart.~Reviewed interim history and current functioning. Reviewed vital signs,~Labs/ Radiology~and current medications noted below. Continue current treatment with the changes noted in the dictated addendum note Assessment: Vital Signs: Vital Signs Date Time Temp Pulse Resp B/P (MAP) Pulse Ox O2 Delivery O2 Flow Rate FiO2 03/23/17 20:18 18 99 Room Air 03/23/17 15:51 97.6 65 146/79 (101) I&O Intake and Output 03/23/17 07:00 Intake Total 1300 ml Balance 1300 ml Intake Oral 1300 ml # Bowel Movements 1 Current Medications: Meds: Current Medications Lactated Ringer's 1,000 ml @ 1,000 mls/hr Q1H IV Last administered on 18:12; Start 03/07/17 at 18:00; Stop 03/07/17 at 23:12; Status DC Diphenhydramine HCl (Benadryl) 50 mg 1X ONCE IVP Last administered on 18:14; Start 03/07/17 at 18:15; Stop 03/07/17 at 18:16; Status DC Lorazepam (Ativan) 2 mg 1X ONCE IV Last administered on 03/07/17 18:19; Start 03/07/17 at 18:15; Stop 03/07/17 at 18:16; Status DC Haloperidol Lactate (Haldol) 5 mg 1X ONCE IVP ; Start 03/07/17 at 18:15; Stop 03/07/17 at 23:16; Status DC Iohexol (Omnipaque 300 Mg/ml) 75 ml 1X ONCE IV Last administered on 03/07/17 19:08; Start 03/07/17 at 19:15; Stop 03/07/17 at 19:16; Status DC Ceftriaxone Sodium 1 gm/ Sodium Chloride 50 ml @ 100 mls/hr 1X ONCE IV ; Start 03/07/17 at 20:30; Stop 03/07/17 at 20:59; Status Cancel Azithromycin (Zithromax) 500 mg 1X ONCE PO ; Start 03/07/17 at 20:30; Stop at 20:31; Status Cancel Ceftriaxone Sodium 1 gm/ Sodium Chloride 50 ml @ 100 mls/hr 1X ONCE IV ; Start 03/07/17 at 21:00; Stop 03/07/17 at 23:12; Status DC Azithromycin (Zithromax) 500 mg 1X ONCE PO Last administered on 03/07/17 20: 51; Start 03/07/17 at 21:00; Stop 03/07/17 at 21:01; Status DC Azithromycin (Zithromax) 250 mg DAILY06 PO Last administered on 03/15/17 05:29 ; Start 03/08/17 at 06:00; Stop 03/15/17 at 09:25; Status DC Ceftriaxone Sodium (Rocephin Im) 1 gm DAILY IM Last administered on 03/14/17 09 :45; Start 03/08/17 at 09:00; Stop 03/15/17 at 09:25; Status DC Albuterol/ Ipratropium (Duoneb) 3 ml RTQID NEB Last administered on 03/14/17 11 :32; Start 03/07/17 at 21:00; Stop 03/14/17 at 12:15; Status DC Sodium Chloride 50 ml @ As Directed STK-MED ONCE .ROUTE ; Start 03/07/17 at 20: 55; Stop 03/07/17 at 23:12; Status DC Ceftriaxone Sodium (Rocephin) 1 gm STK-MED ONCE IV ; Start 03/07/17 at 20:55; Stop 03/07/17 at 20:56; Status DC Donepezil HCl (Aricept) 5 mg QHS PO Last administered on 03/23/17 19:15; Start 03/08/17 at 21:00 Escitalopram Oxalate (Lexapro) 10 mg DAILY PO Last administered on 03/23/17 09 :05; Start 03/08/17 at 09:00 Quetiapine Fumarate (SEROquel) 25 mg QHS PO Last administered on 03/08/17 21: 09; Start 03/08/17 at 21:00; Stop 03/09/17 at 18:11; Status DC Risperidone (Risperdal) 0.25 mg BID PO Last administered on 03/10/17 09:10; Start 03/08/17 at 09:00; Stop 03/10/17 at 21:00; Status DC Non-Formulary Medication 1 each BID PO ; Start 03/08/17 at 09:00; Stop 03/08/17 at 09:00; Status DC Vitamin D (Vitamin D3) 2,000 unit DAILY PO ; Start 03/08/17 at 09:00; Stop 03/08 at 09:00; Status DC Cyanocobalamin (Vitamin B-12) 5,000 mcg DAILY PO ; Start 03/08/17 at 09:00; Stop 03/08/17 at 09:00; Status DC Cetirizine HCl (Zyrtec) 10 mg DAILY PO ; Start 03/08/17 at 09:00; Stop 03/08/17 at 09:00; Status DC Potassium Chloride (Klor-Con) 30 meq BIDWMEALS PO ; Start 03/08/17 at 08:00; Stop 03/08/17 at 08:00; Status DC Acetaminophen/ Codeine Phosphate (Tylenol #3) 1 tab PRN Q6HRS PRN PO PAIN Last administered on 03/13/17 15:00; Start 03/08/17 at 08:45 Glucosamine/ Chondroitin (Glucosamine-Chondroitin 500/400mg) 1 cap BID PO Last administered on 03/23/17 19:15; Start 03/08/17 at 09:00 Hydrochlorothiazide (Hydrodiuril) 25 mg DAILY PO Last administered on 09:05; Start 03/08/17 at 09:00 Polyethylene Glycol (miraLAX) 17 gm DAILY PO Last administered on 03/23/17 09: 05; Start 03/08/17 at 09:00 Tamsulosin HCl (Flomax) 0.4 mg QHS PO Last administered on 03/23/17 19:15; Start 03/08/17 at 21:00 Multivitamins/ Minerals (Preservision) 1 cap BID PO Last administered on 08:54; Start 03/08/17 at 09:00; Stop 03/16/17 at 14:50; Status DC Olanzapine (Zyprexa Zydis) 2.5 mg PRN Q2HR PRN PO ANXIETY / AGITATION Last administered on 03/13/17 03:56; Start 03/08/17 at 12:30 Mirtazapine (Remeron) 7.5 mg QHS PO Last administered on 03/11/17 18:55; Start 03/08/17 at 21:00; Stop 03/12/17 at 19:38; Status DC Melatonin 3 mg QHS PO Last administered on 03/12/17 19:35; Start 03/08/17 at 21:00; Stop 03/13/17 at 18:49; Status DC Trazodone HCl (Desyrel) 50 mg PRN QHS PRN PO INSOMNIA, MAY REPEAT X1; Start at 18:15; Stop 03/10/17 at 11:35; Status DC Ondansetron HCl (Zofran Odt) 4 mg PRN Q4HRS PRN PO NAUSEA/VOMITING; Start 03/09 at 19:45 Risperidone (Risperdal) 0.25 mg HS PO Last administered on 03/12/17 19:34; Start 03/10/17 at 21:00; Stop 03/13/17 at 18:49; Status DC Mirtazapine (Remeron) 7.5 mg QHS PO ; Start 03/10/17 at 21:00; Stop 03/10/17 at 21:00; Status DC Melatonin 3 mg HS PO Last administered on 03/11/17 20:59; Start 03/11/17 at 21 :00; Stop 03/12/17 at 16:21; Status DC Potassium Chloride (Klor-Con) 20 meq BID PO Last administered on 03/23/17 19: 15; Start 03/12/17 at 21:00 Mirtazapine (Remeron) 15 mg QHS PO Last administered on 03/12/17 19:51; Start 03/12/17 at 21:00; Stop 03/13/17 at 03:33; Status DC Mirtazapine (Remeron) 15 mg QHS PO Last administered on 03/23/17 19:15; Start 03/13/17 at 21:00 Acetaminophen/ Codeine Phosphate (Tylenol #3) 1 tab HS PO Last administered on 03/23/17 19:18; Start 03/13/17 at 21:00 Melatonin 4.5 mg QHS PO ; Start 03/13/17 at 21:00; Stop 03/13/17 at 21:00; Status DC Buspirone HCl (Buspar) 5 mg BID PO Last administered on 03/23/17 19:15; Start 03/13/17 at 21:00 Quetiapine Fumarate (SEROquel) 25 mg HS PO Last administered on 03/15/17 19:30 ; Start 03/13/17 at 21:00; Stop 03/16/17 at 18:50; Status DC Melatonin 6 mg QHS PO Last administered on 03/23/17 19:14; Start 03/13/17 at 21:00 Albuterol/ Ipratropium (Duoneb) 3 ml RTQID PRN NEB WHEEZING; Start 03/14/17 at 12:30 Multivitamins/ Minerals (I-Juliana) 1 tab BID PO Last administered on 03/23/17 19 :15; Start 03/16/17 at 21:00 Quetiapine Fumarate (SEROquel) 37.5 mg HS PO Last administered on 03/23/17 19: 15; Start 03/16/17 at 21:00 Active Scripts Active Reported Claritin (Loratadine) 10 Mg Tablet 10 Mg PO DAILY Vitamin B12 (Cyanocobalamin (Vitamin B-12)) 5,000 Mcg Tab.rapdis 5,000 Mcg PO DAILY Vitamin D-3 (Cholecalciferol (Vitamin D3)) 2,000 Unit Tablet 2,000 Unit PO DAILY Glucosamine-Chondroitin Cap (Glucosamine/Chondroitin Sulf A) 1 Each Capsule 1, 500 Mg PO BID Lipo-Flavonoid Plus Caplet (Bioflav,Lemon/Vit Bcomp&C) 1 Each Tablet 1 Each PO BID Preservision Areds Softgel (Vit A/Vit C/Vit E/Zinc/Copper) 1 Each Capsule 1 Each PO BID Polyethylene Glycol 3350 17 Gm Powd.pack 17 Gm PO DAILY Tylenol With Codeine #3 Tablet (Acetaminophen With Codeine) 1 Each Tablet 1 Tab PO PRN Q6HRS PRN Quetiapine Fumarate 25 Mg Tablet 25 Mg PO QHS Donepezil Hcl 5 Mg Tablet 5 Mg PO QHS Risperdal (Risperidone) 0.25 Mg Tablet 0.25 Mg PO BID Escitalopram Oxalate 10 Mg Tablet 10 Mg PO DAILY Tamsulosin Hcl 0.4 Mg Cap.er.24h 0.4 Mg PO QHS Potassium Chloride 20 Meq Tablet.er 30 Meq PO BID Hydrochlorothiazide Tablet (Hydrochlorothiazide) 25 Mg Tablet 25 Mg PO DAILY RASHMI NEGRON MD March 23, 2017 21:57
--- NOTE | 2017-03-23 23:01 | NUR ---
Behavior Intervention Response and Plan: BIRP Note: Behavior: Assumed Care of patient, patient located in Patient Room at shift change. Patient exhibited the following behavior Calm, Cooperative, Withdrawn. Brief assessment on rounds of vital signs, medication needs, lab studies, and pain. Treatment plan problems 1 and 2. Intervention: Patient assessed and the following interventions initiated safety checks 15 Minute Checks Cognitive Assessment , Head to toe Assessment , Medications. Response: After interactions and interventions patient responded in the following manner, Calm , Compliant ,Cooperative. Continue to assess behaviors and condition will continue to monitor throughout the shift as needed. 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 Continue to assess patient for changes in above assessment. Monitor for medication needs, pain, and safety concerns. Hourly rounding performed to ensure safe environment.
[2017-03-24] MEDS ORDERED: ACET-704 PO (00:30)
[2017-03-24] MEDS ORDERED: IPRA3AMP NEB (00:32)
[2017-03-24] MEDS ORDERED: VIT1TABL8 PO (00:33)
[2017-03-24] MEDS ORDERED: ONDA4TAB10 SL (00:34)
[2017-03-24] MEDS ORDERED: MELA3TAB19 PO (00:37)
[2017-03-24] MEDS ORDERED: MIRT15TA3 PO (00:38)
[2017-03-24] MEDS ORDERED: OLAN5TAB5 PO (00:38)
[2017-03-24] MEDS ORDERED: BUSP5TAB PO (00:41)
[2017-03-24 06:12] VITALS: BP 162/80
--- NOTE | 2017-03-24 08:10 | NUR ---
[facility] Social Work Discharge Planning Form Patient Name SHEA SILVERMAN Admit Date: 03/07/17 DISCHARGE PLAN Discharge Destination: new to [facility] Assessment: completed Transportation: Facility arranged for private transport 03/24/17 at 11:30-12 DISCHARGE TO FACILITY Facility: [facility] Address: [address] [place] [address] Contact Name: Tory PCP: at facility w/in 10-12 days of dc Psychiatrist: at facility w/in 10-12 days of dc [facility] Prescriptions were sent to [facility] via REBECCA Noriega and will be overnighted to facility in time for admit today. Addendum: 03/24/17 at 0818 by ARI MERCEDES belt picker at 10:00
--- NOTE | 2017-03-24 09:20 | NUR ---
Behavior Intervention Response and Plan: BIRP Note: Behavior: Assumed Care of patient, patient located in Patient Room at shift change. Patient exhibited the following behavior Calm, Disorganized, Compliant. Brief assessment on rounds of vital signs, medication needs, lab studies, and pain. Treatment plan problems 1 & 2. Intervention: Patient assessed and the following interventions initiated safety checks 15 Minute Checks Cognitive Assessment , Head to toe Assessment , Medications. Response: After interactions and interventions patient responded in the following manner, Calm , Appropriate ,Cooperative. Continue to assess behaviors and condition will continue to monitor throughout the shift as needed. 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 Continue to assess patient for changes in above assessment. Monitor for medication needs, pain, and safety concerns. Hourly rounding performed to ensure safe environment.
[2017-03-24] MEDS: POTASSIUM CHLORIDE 20 MEQ TABLET.ER. PO SCH (09:21)
[2017-03-24] MEDS: ESCITALOPRAM 10 MG TABLET. PO SCH (09:21)
[2017-03-24] MEDS: MULTIVITAMIN I-VITE TABLET. PO SCH (09:21)
[2017-03-24] MEDS: hydroCHLOROthiazide 25 MG TABLET PO SCH (09:21)
[2017-03-24] MEDS: POLYETHYLENE GLYCOL 3350 17 GM PACKET. PO SCH (09:21)
[2017-03-24] MEDS: busPIRone 5 MG TABLET. PO SCH (09:21)
[2017-03-24] MEDS: GLUCOSAMINE/CHOND 500/400MG CAPSULE PO SCH (09:21)
--- NOTE | 2017-03-24 09:41 | PN ---
DATE: 03/22/2017 PSYCHIATRIC PROGRESS NOTE This is late entry of 03/22/2017, covers elements not covered in my initial note. SUBJECTIVE: The patient remains withdrawn, fairly quiet, not aggressive. REVIEW OF SYSTEMS: Hard of hearing, I had to talk loudly into his left ear, impaired ambulation. No CV, , pulmonary, eye system symptoms on review. MENTAL STATUS EXAMINATION: Oriented to himself. Insight, judgment, recent memory is impaired. Language function intact, attention span short. Mood and affect still somewhat anxious, labile, but better than before. LABORATORY DATA: Reviewed. IMPRESSION: Unchanged from initial note. PLAN: Continue psychotropics mentioned in my initial note. MAN Luiz NEGRON MD DR: MARIA T/kofi JOB#: [id number] / [id number]
--- NOTE | 2017-03-24 10:21 | NUR ---
Report called to [facility].
--- NOTE | 2017-03-24 11:32 | NUR ---
Discharge Note [facility] Patient is not currently a tobacco user. Follow up Appointment made: Instructions and Social Work Discharge planning sheet sent to next level of care. [facility] contact Number for 24 hour support [phone] Discharge Packet Sent, and discusssed with patient and caregiver that includes Copies from the record of current medications with indications and frequencies, history and physical, Psychiatric Eval with reason and justification for admission, Lab values, Radiology results , follow up instructions for continuation of care, and Social Work discharge planning form: Discharge Packet Faxed to Provider/Next Level of Care: [place] [phone] Discharge Packet Faxed with discharge Order and Discharge diagnosis sent to: Discharge Packet Discussed, and report Given to: Discharge instruction sheet was included in the packet and sent with the patient upon discharge. Any Pending lab results can be obtained by calling [phone] Discharge Summary will be sent to next care provider when available. This includes the reason for admission, DC diagnosis, and next level of care recommendations.
--- NOTE | 2017-03-25 18:08 | DS ---
DATE OF DISCHARGE: 03/24/2017 DISCHARGE SUMMARY/PSYCHIATRIC PROGRESS NOTE This is late entry of 03/24/2017, covers elements not covered in my initial note. REASON FOR ADMISSION: Please refer to the admission history for details. Briefly, the patient is an 86-year-old male referred to us from home by the [facility] after he was having increased confusion, sundowning, marked insomnia, paranoia, had failed outpatient psychiatric interventions and behaviors were deemed a danger to himself and inability to be maintained safely at home. SIGNIFICANT FINDINGS AND CLINICAL COURSE: Following admission, the patient was seen daily individually by myself from a psychiatric standpoint, medical followup with Dr. Galarza/Dr. Leon. The patient was quite paranoid, sleeping very poorly, irritable, labile. He is hard of hearing and certainly confused, which made his irritability worse. Adjustments were made in his psychotropics and he seemed to respond to a combination of Seroquel 37.5 mg at bedtime, Aricept 5 mg a day, Lexapro 10 mg a day, Remeron 15 at bedtime, melatonin 6 at bedtime, BuSpar 5 mg b.i.d. and Zyprexa p.r.n. Social service staff [facility] with [facility] and [facility] at [facility]. Prior to discharge on 03/24/2017, temperature 97.3, BP 162/80, pulse 63 and respirations 16. REVIEW OF SYSTEMS: Hard of hearing, impaired ambulation with a walker. No CV, , pulmonary, eye system symptoms on review. Reliability poor. MENTAL STATUS EXAMINATION: Oriented to himself. Insight, judgment, recent memory is impaired. Language function intact. Attention span short. Mood and affect improved, less labile. LABORATORY DATA: Reviewed. FINAL DIAGNOSES: Major neurocognitive disorder, Alzheimer, vascular with depression, delusion, behavioral disturbance; anxiety disorder, unspecified; impulse control disorder, unspecified. Rest diagnoses unchanged. DISCHARGE MEDICATIONS: Please refer to the [facility]. DISCHARGE INSTRUCTIONS: [facility]. Time for discharge day management greater than 30 minutes. MAN Luiz NEGRON MD DR: MARIA T/kofi JOB#: [id number] / [id number]
--- NOTE | 2017-03-26 01:36 | PN ---
DATE: 03/23/2017 This is a late entry, covers the elements not covered in my initial note. SUBJECTIVE: Overall, the patient remains confused, is hard of hearing, and has been calm, slept 8 hours previous night, has been accepted at [facility]. REVIEW OF SYSTEMS: Impaired ambulation with a walker, hard of hearing. No CV, , pulmonary, eye system symptoms on review. Reliability poor. MENTAL STATUS EXAM: Oriented to himself. Insight, judgment, recent memory is impaired. Language function intact. Mood and affect overall improved. LABORATORY DATA: Reviewed. IMPRESSION: Unchanged from initial note. PLAN: Medications continue as noted in my initial note, discharged on 03/24/2017. MAN Luiz NEGRON MD DR: MARIA T/kofi JOB#: [id number] / [id number]
== END 2017-03-24 11:30 | DRG 56 ==
LOC: ER 16:14 → EEVIPCON 16:14 → GEROPSY 21:02
PROVIDERS: ADMIT Psychiatry & Neurology Psychiatry; ATTEND Psychiatry & Neurology Psychiatry
DX: G30.0 Alzheimer's disease with early onset (principal); J18.9 Pneumonia, unspecified organism; F01.51 Vascular dementia, unspecified severity, with behavioral disturbance; F02.81 Dementia in other diseases classified elsewhere, unspecified severity, with behavioral disturbance; E78.5 Hyperlipidemia, unspecified; F32.9 Major depressive disorder, single episode, unspecified; F41.9 Anxiety disorder, unspecified; F63.9 Impulse disorder, unspecified; G47.00 Insomnia, unspecified; H91.90 Unspecified hearing loss, unspecified ear; I25.10 Atherosclerotic heart disease of native coronary artery without angina pectoris; N40.0 Benign prostatic hyperplasia without lower urinary tract symptoms; E87.6 Hypokalemia; D64.9 Anemia, unspecified; I50.9 Heart failure, unspecified; I11.0 Hypertensive heart disease with heart failure; E66.9 Obesity, unspecified; M19.90 Unspecified osteoarthritis, unspecified site; R29.6 Repeated falls; Z66 Do not resuscitate; Z79.899 Other long term (current) drug therapy; Z85.46 Personal history of malignant neoplasm of prostate; Z87.01 Personal history of pneumonia (recurrent); Z88.6 Allergy status to analgesic agent; Z88.5 Allergy status to narcotic agent
CPT/HCPCS: 36415; 70450; 71010; 71275; 80048; 80053; 80061; 81001; 82306; 82607; 83036; 83540; 83550; 83735; 83880; 84436; 84443; 84480; 84484; 84550; 85027; 85651; 86140; 86592; 86593; 93005; 93970; 94640; 96372; 96374; 96375; G0481; J0456; J0696; J1200; J2060; J7120; J7620; Q9967; 97110; 97116; 97530; 99285-25